=== PATIENT | female | born 1950 | race Caucasian/White ===

== ENCOUNTER 2016-10-12 00:43 | Emergency (ER) | payer MEDICARE ==
--- NOTE | 2016-10-12 01:03 | ERNOTE ---
Upper Extremity HPI - Narrative Date of Service: 10/12/16 - pt seen at 0100 - General Time Seen by Provider: 10/12/16 00:47 Source: patient Exam Limitations: no limitations - Immun/Allergies/Home Medications Immunizations: IMMUNIZATION HX Immunizations Up to Date Yes History of Influenza Vaccine Yes Hx Pneumococcal Vaccination No Allergies/Adverse Reactions: Allergies Allergy/AdvReac Type Severity Reaction Status Date / Time lithium [[place]] AdvReac Mild leg pain Verified 09/12/15 16:12 Home Medications: HOME MEDICATIONS Albuterol Sulfate [Albuterol Sulfate 2.5 MG/0.5ML] 1 vial IH Q6H 09/12/15 [Last Taken Unknown] Aspirin 325 mg PO DAILY 09/12/15 [Last Taken Unknown] Atenolol [Tenormin] 50 mg PO DAILY 09/12/15 [Last Taken Unknown] Furosemide [Lasix] 40 mg PO DAILY 09/12/15 [Last Taken Unknown] Gabapentin [Neurontin] 600 mg PO TID 09/12/15 [Last Taken Unknown] Glimepiride [Amaryl] 2 mg PO DAILY 09/12/15 [Last Taken Unknown] HYDROcodone/ACETAMINOPHEN [[place] 5-325] 1 tab PO Q4H PRN #30 tab 09/12/15 [Last Taken Unknown] Meloxicam [Mobic] 15 mg PO DAILY 09/12/15 [Last Taken Unknown] Multivitamin [One Daily Essential] 1 each PO DAILY 09/12/15 [Last Taken Unknown] Omeprazole [Prilosec] 20 mg PO DAILY 09/12/15 [Last Taken Unknown] Promethazine HCl [Phenergan] 25 mg PO QID PRN 09/12/15 [Last Taken Unknown] Venlafaxine HCl [Venlafaxine HCl ER] 150 mg PO DAILY 09/12/15 [Last Taken Unknown] Zolpidem Tartrate [Ambien] 15 mg PO HS PRN 09/12/15 [Last Taken Unknown] lamoTRIgine [Lamictal] 200 mg PO DAILY 09/12/15 [Last Taken Unknown] metFORMIN HCL [Glucophage] 1,000 mg PO BIDWM 09/12/15 [Last Taken Unknown] risperiDONE [Risperdal] 1 mg PO HS 09/12/15 [Last Taken Unknown] - History of Present Illness Narrative: Patient cut her left index finger on the side of her thin. This happened at home prior to presentation to the ER. There is a linear laceration on the pad of the distal portion of her left index finger. Review of Systems - Review of Systems Constitutional: Present: no symptoms reported EYE: Present: no symptoms reported ENT: Present: no symptoms reported Respiratory: Present: no symptoms reported Cardiology: Present: no symptoms reported Genitourinary: Present: no symptoms reported Musculoskeletal: Present: See HPI Skin: Present: no symptoms reported - Patient's Past Medical History Patient History - Medical: Diabetes Type 2, GERD, Hypothyroidism, Osteoarthritis Patient History - Cardiac/Respiratory: Asthma, CHF, Hypertension, Hyperlipidemia Patient History - Cancer: Skin Patient History - Surgical Procedures: Coronary Bypass Surgery, Total Hip Replacement, Tubal Ligation, Other Patient History - Other: None - Family History Mother Family History - Medical: Father Family History - Medical: - Social History Living Situations: home Abuse History: No History of abuse Psych History: No pertinent hx Smoking Status: Never smoker Patient requests Smoking Cessation Consult: No Initiate information on Smoking Cessation: No Alcohol Use: none Drug Use: none - Immunizations Immunizations Up to Date: Yes Hx Pneumococcal Vaccination: No History of Influenza Vaccine: Yes Physical Exam - Physical Exam General Appearance: Present: wd/wn, alert, no apparent distress Head Exam: Present: normal inspection, no evidence of injury Respiratory: Present: no respiratory distress, normal breath sounds, no accessory muscle use, chest nontender, lungs clear Cardiovascular/Chest: Present: regular rate, rhythm, no murmur, normal peripheral pulses Extremity Exam: Present: other - there is a 1.5 cm laceration on the left index finger on the pad/palmar surface of the digit distally. Bleeding has stopped but it is a nice size laceration and it is open ED Progress - Vital Signs Patient's Vital Signs:: I have reviewed the patient's vital signs. Vital Signs: Vital Signs 10/12/16 00:48 Temperature 36.5 C Pulse Rate 72 Respiratory 20 Rate Blood Pressure 170/94 O2 Sat by Pulse 96 Oximetry - Progress/Reassessment Chief Complaint: Upper Extremity Injury/Problem Departure Clinical Impression: Laceration of left index finger - Departure Disposition: Home self-care Condition: Good Instructions: Laceration Care, Adult, [id number] Additional Instructions: Please follow-up with your primary care doctor or here for a wound check in 48 hours. Subsequently please follow up in 7 days either here or with her primary care provider for suture removal. Referrals: Cassi Abraham DO [Primary Care Provider] -
[2016-10-12] MEDS ORDERED: LIDOCAINE HCL/EPINEPHRINE 30 ML VIAL IJ ONE (01:04)
[2016-10-12 02:18] VITALS: BP 128/87
== END 2016-10-12 01:43 | disposition home or self-care (01) ==
LOC: ER 00:43
DX: S61.211A Laceration without foreign body of left index finger without damage to nail, initial encounter (principal); W45.8XXA Other foreign body or object entering through skin, initial encounter; Y93.9 Activity, unspecified; Y92.009 Unspecified place in unspecified non-institutional (private) residence as the place of occurrence of the external cause

== ENCOUNTER 2016-10-13 23:54 | Emergency (ER) | payer MEDICARE ==
--- NOTE | 2016-10-14 00:12 | ERNOTE ---
Neuro HPI ER Record Time Seen by Provider: 10/14/16 00:02 Source: EMS Exam Limitations: clinical condition Immunizations: IMMUNIZATION HX Immunizations Up to Date Yes History of Influenza Vaccine Yes Hx Pneumococcal Vaccination No Allergies/Adverse Reactions: Allergies Allergy/AdvReac Type Severity Reaction Status Date / Time lithium [[place]] AdvReac Mild leg pain Verified 09/12/15 16:12 Home Medications: HOME MEDICATIONS Albuterol Sulfate [Albuterol Sulfate 2.5 MG/0.5ML] 1 vial IH Q6H 09/12/15 [Last Taken Unknown] Aspirin 325 mg PO DAILY 09/12/15 [Last Taken Unknown] Atenolol [Tenormin] 50 mg PO DAILY 09/12/15 [Last Taken Unknown] Furosemide [Lasix] 40 mg PO DAILY 09/12/15 [Last Taken Unknown] Gabapentin [Neurontin] 600 mg PO TID 09/12/15 [Last Taken Unknown] Glimepiride [Amaryl] 2 mg PO DAILY 09/12/15 [Last Taken Unknown] HYDROcodone/ACETAMINOPHEN [[place] 5-325] 1 tab PO Q4H PRN #30 tab 09/12/15 [Last Taken Unknown] Meloxicam [Mobic] 15 mg PO DAILY 09/12/15 [Last Taken Unknown] Multivitamin [One Daily Essential] 1 each PO DAILY 09/12/15 [Last Taken Unknown] Omeprazole [Prilosec] 20 mg PO DAILY 09/12/15 [Last Taken Unknown] Promethazine HCl [Phenergan] 25 mg PO QID PRN 09/12/15 [Last Taken Unknown] Venlafaxine HCl [Venlafaxine HCl ER] 150 mg PO DAILY 09/12/15 [Last Taken Unknown] Zolpidem Tartrate [Ambien] 15 mg PO HS PRN 09/12/15 [Last Taken Unknown] lamoTRIgine [Lamictal] 200 mg PO DAILY 09/12/15 [Last Taken Unknown] metFORMIN HCL [Glucophage] 1,000 mg PO BIDWM 09/12/15 [Last Taken Unknown] risperiDONE [Risperdal] 1 mg PO HS 09/12/15 [Last Taken Unknown] - History of Present Illness Narrative: History is very difficult on this patient as she is somnolent and she speaks with a slur. I am familiar with this patient as I sewed up the laceration on her left index finger last night. The history is that the patient was found down in her bathtub for an unknown amount of time. We have no information as to when the patient was seen last to the best of my guesstimate it last night when I saw the patient. Patient is a very poor historian. History per EMS is that she has altered level of consciousness and altered mentation and slurring of her speech. After head CT is done this examiner is able to locate the patient's spouse and the history per spouse is at the patient was last seen normal at 1999 as he saw her walk out the door with a normal gait. Shortly after that she was noticed to be at [employer] "falling all over the place". Spouse states "she may have taken some medication to sleep" patient was picked up from the store where she was falling by a friend and brought home and spouse put the patient to bed noticing that she was not walking right and that she was very unsteady on her feet. Subsequent to fat and prior to presentation to the ER patient gets up to go to the bathroom and falls fall was not noticed or witnessed by anyone and ambulance was called out to the patient' s residence and they brought the patient in. Review of Systems - Narrative Narrative: I am unable to get review of systems as patient is somnolent she slurs her speech and she appears confused when asked if she has any pain she states she does not have any pain anywhere. - Patient's Past Medical History Patient History - Medical: Diabetes Type 2, GERD, Hypothyroidism, Osteoarthritis Patient History - Cardiac/Respiratory: Asthma, CHF, Hypertension, Hyperlipidemia Patient History - Cancer: Skin Patient History - Surgical Procedures: Coronary Bypass Surgery, Total Hip Replacement, Tubal Ligation, Other Patient History - Other: None - Family History Mother Family History - Medical: Father Family History - Medical: - Social History Living Situations: home Abuse History: No History of abuse Psych History: No pertinent hx Smoking Status: Never smoker Alcohol Use: none Drug Use: none - Immunizations Immunizations Up to Date: Yes Hx Pneumococcal Vaccination: No History of Influenza Vaccine: Yes Physical Exam - Physical Exam General Appearance: Present: other - patient is somnolent and appears to be sleeping when I speak with her she opens her right eye left eye opens but less. She is able to slur her responses. She has left-sided facial droop. She is morbidly obese Eye Exam: Normal inspection: bilateral, PERRL: bilateral, EOMI: bilateral Ears, Nose, Throat: Present: normal ENT inspection Neck: Present: normal inspection Respiratory: Present: no respiratory distress, normal breath sounds, no accessory muscle use, chest nontender, lungs clear Cardiovascular/Chest: Present: regular rate, rhythm, no murmur, normal peripheral pulses Gastrointestinal/Abdominal: Present: normal bowel sounds, nontender, nondistended, soft, no organomegaly Extremity Exam: Present: normal inspection Neurological Exam: Present: other - patient is somnolent she has left-sided facial droop however when I speak to her she attempts to open her eyes her right eye opens up more than her left she is able to squeeze my hands bilaterally with both hands and she is able to plantar flex bilaterally with both feet she is awfully somnolent and when I stop talking to her she dozes off. Skin Exam: Present: normal color, warm/dry ED Progress - Results and Orders Patient's Lab Results:: I have reviewed the patient's lab results. - Vital Signs Patient's Vital Signs:: I have reviewed the patient's vital signs. Vital Signs: Vital Signs 10/13/16 23:56 Temperature 35.8 C L Pulse Rate 61 Respiratory 23 H Rate Blood Pressure 138/78 O2 Sat by Pulse 93 Oximetry - EKG EKG read: Interp. 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 At this patient was last seen normal at 8 PM the previous night just over 4 hours and 45 minutes ago she shouldn't does not meet criteria for TPA at this time. Furthermore [employer] has contacted me and informed me that the urine drug screen is negative. Dr. Suazo from [facility] has contacted me and informed me that patient does not have an acute intracranial bleed at this time. I consult to Dr. Ch [facility] stroke team and they accepted the patient to their emergency room for CVA. Patient's vitals remained stable and appropriate for transfer via ground to [facility] Departure Clinical Impression: Altered mental status, unspecified Qualifiers: Altered mental status type: unspecified Qualified Code(s): R41.82 - Altered mental status, unspecified Cerebral vascular accident Qualifiers: CVA mechanism: unspecified Qualified Code(s): I63.9 - Cerebral infarction, unspecified - Departure Disposition: [facility] Condition: Serious Referrals: Cassi Abraham DO [Primary Care Provider] -
[2016-10-14 00:19] LABS: Hematocrit 33.8 % (37.0-47.0); Hemoglobin 11.3 gm/dL (12.5-16.0); Mean Cell Volume 90.1 fl (78-100); Mean Corpuscular Hemoglobin 30.1 pg (27-31); Mean Corpuscular Hgb Conc 33.4 g/dl (32-36); Mean Platelet Volume 8.5 fl (6.0-9.5); Neutrophil # 5.9 K/mm3 (1.3-6.0); Neutrophil % 61.8 % (42-75.0); Platelet Count 248 K/mm3 (150-450); Red Blood Count 3.75 M/mm3 (4.2-5.4); Red Cell Distribution Width 14.2 % (11.5-14.0); White Blood Count 9.5 K/mm3 (4.0-10.5)
[2016-10-14 00:35] LABS: Urine Bilirubin Negative (NEGATIVE); Urine Blood Negative /ul (NEGATIVE); Urine Ketone Negative (NEGATIVE); Urine Nitrite Negative (NEGATIVE); Urine Protein Negative (NEGATIVE); Urine Specific Gravity <=1.005 SP.GR. (1.005-1.010); Urine Urobilinogen Normal (NORMAL)
[2016-10-14 00:37] LABS: Urine Amorphous Sediment TRACE (NONE-FEW); Urine Appearance Clear; Urine Bacteria None Seen; Urine Color Pale Yellow; Urine RBC None Seen /hpf (0-5); Urine WBC None Seen /hpf (0-5)
[2016-10-14 00:39] LABS: ALT 20 U/L (19-67); AST 10 U/L (0-48); Albumin * 3.2 gm/dl (3.4-5.0); Alkaline Phosphatase * 114 U/L (50-170); Anion Gap 13.1 mmol/L (6.8-13.8); BUN/Creatinine Ratio 20.4 (9.0-21.6); Bilirubin, Total 0.2 mg/dL (0.0-1.1); Blood Urea Nitrogen 32 mg/dL (3-23); CKMB 0.6 ng/mL (0.0-9.0); Ca. Corrected For Albumin 8.9 mg/dL (8.4-10.2); Calcium * 8.6 mg/dL (7.9-10.9); Carbon Dioxide 26.1 mmol/L (24-32.6); Chloride 98 mmol/L (97-106); Glucose * 324 mg/dL (70-110); Potassium 4.2 mmol/L (3.4-4.6); Sodium 133 mmol/L (132-142); Total Protein 6.5 gm/dL (6.2-8.2); Troponin I Less than 0.017 ng/ml (0.00-0.10)
[2016-10-14 00:41] LABS: Cocaine Ur Negative (NEGATIVE); Urine Barbiturate Negative (NEGATIVE); Urine Benzodiazepines Negative (NEGATIVE); Urine PCP Negative (NEGATIVE); Urine THC Negative (NEGATIVE)
[2016-10-14 00:50] LABS: Urine Opiates Negative (NEGATIVE)
[2016-10-14 02:07] VITALS: BP 166/97
== END 2016-10-14 02:07 | disposition short-term general hospital (02) ==
LOC: ER 23:54
DX: I63.9 Cerebral infarction, unspecified (principal); R41.82 Altered mental status, unspecified; Z85.828 Personal history of other malignant neoplasm of skin

== ENCOUNTER 2016-12-16 11:55 | Emergency (ER) | payer MEDICARE ==
--- NOTE | 2016-12-16 14:37 | ERNOTE ---
Lower Extremity HPI - Narrative Date of Service: 12/16/16 - General Lower Extremities Pain: leg: right - lower leg Time Seen by Provider: 12/16/16 14:32 Source: patient Exam Limitations: no limitations - Immun/Allergies/Home Medications Immunizations: IMMUNIZATION HX Immunizations Up to Date Yes History of Influenza Vaccine Yes Hx Pneumococcal Vaccination No Allergies/Adverse Reactions: Allergies Allergy/AdvReac Type Severity Reaction Status Date / Time lithium [[place]] AdvReac Mild leg pain Verified 12/16/16 12:01 Home Medications: HOME MEDICATIONS Albuterol Sulfate [Albuterol Sulfate 2.5 MG/0.5ML] 1 vial IH Q6H 09/12/15 [Last Taken Unknown] Aspirin 325 mg PO DAILY 09/12/15 [Last Taken Unknown] Atenolol [Tenormin] 50 mg PO DAILY 09/12/15 [Last Taken Unknown] Furosemide [Lasix] 40 mg PO DAILY 09/12/15 [Last Taken Unknown] Gabapentin [Neurontin] 600 mg PO TID 09/12/15 [Last Taken Unknown] Glimepiride [Amaryl] 2 mg PO DAILY 09/12/15 [Last Taken Unknown] HYDROcodone/ACETAMINOPHEN [[place] 5-325] 1 tab PO Q4H PRN #30 tab 09/12/15 [Last Taken Unknown] Meloxicam [Mobic] 15 mg PO DAILY 09/12/15 [Last Taken Unknown] Multivitamin [One Daily Essential] 1 each PO DAILY 09/12/15 [Last Taken Unknown] Omeprazole [Prilosec] 20 mg PO DAILY 09/12/15 [Last Taken Unknown] Promethazine HCl [Phenergan] 25 mg PO QID PRN 09/12/15 [Last Taken Unknown] Venlafaxine HCl [Venlafaxine HCl ER] 150 mg PO DAILY 09/12/15 [Last Taken Unknown] Zolpidem Tartrate [Ambien] 15 mg PO HS PRN 09/12/15 [Last Taken Unknown] lamoTRIgine [Lamictal] 200 mg PO DAILY 09/12/15 [Last Taken Unknown] metFORMIN HCL [Glucophage] 1,000 mg PO BIDWM 09/12/15 [Last Taken Unknown] risperiDONE [Risperdal] 1 mg PO HS 09/12/15 [Last Taken Unknown] - Pain Score Pain Score #1 Pain Score: 6 - History of Present Illness Narrative: 66yo, F, presents to ER for R. lower leg pain, which started today. She describes pain as an ache. Did improve for short period with rest, but pain increased again when she got out of bed. She denies any known injury to the leg. Notes she was lying down when pain first started. Date (Duration): 12/16/16 Time (Timing): 14:30 Location of Incident: home Method of Injury: Reports: no apparent injury Modifying Factors - (Improves): Reports: pain medication - ASA, rest Associated Symptoms: Denies: snapping, popping sensation, headache, weakness, sensory loss, chest pain, bowel/bladder problems Other Injuries: Reports: none Review of Systems - Review of Systems Constitutional: Absent: fever, chills, malaise Respiratory: Absent: shortness of breath, cough, orthopnea, wheezing Cardiology: Absent: chest pain, palpitations, edema Gastrointestinal/Abdominal: Absent: nausea, vomiting Musculoskeletal: Present: other - R. lower leg Skin: Absent: rash, other - redness Neurological: Absent: numbness, tingling - Patient's Past Medical History Patient History - Medical: Diabetes Type 2, GERD, Hypothyroidism, Osteoarthritis Patient History - Cardiac/Respiratory: Asthma, CHF, Hypertension, Hyperlipidemia Patient History - Cancer: Skin Patient History - Surgical Procedures: Coronary Bypass Surgery, Total Hip Replacement, Tubal Ligation, Other Patient History - Other: None - Family History Mother Family History - Medical: Father Family History - Medical: - Social History Living Situations: home Abuse History: No History of abuse Psych History: No pertinent hx - Immunizations Immunizations Up to Date: Yes Hx Pneumococcal Vaccination: No History of Influenza Vaccine: Yes Physical Exam - Physical Exam General Appearance: Present: wd/wn, alert, no apparent distress Respiratory: Present: no respiratory distress, normal breath sounds, lungs clear. Absent: crackles, rhonchi, wheezing Cardiovascular/Chest: Present: regular rate, rhythm, no murmur Extremity Exam: Present: normal inspection, normal range of motion - some discomfort to R. knee with ROM, no edema, calf tenderness - posterior and medial RLE, bony tenderness - tenderness along R. medial jointline . Absent: joint redness, joint swelling, extremity edema Neurological Exam: Present: alert, oriented ED Progress - Vital Signs Patient's Vital Signs:: I have reviewed the patient's vital signs. Vital Signs: Vital Signs 12/16/16 11:58 Temperature 36.0 C L Pulse Rate 62 Respiratory 12 Rate Blood Pressure 160/98 O2 Sat by Pulse 96 Oximetry - X-Ray X-Ray #1 X-Ray: knee Interpretation: Reviewed by me X-ray Comments: [facility] PATIENT RADIOLOGY STUDY REPORT Patient Patient Name:MARIETTA BOWLES Date: 07-21-1972 Sex: M Order Number: [id number] Unique Exam ID: [id number] Exam Requested: SHLDR-3-RT - Shoulder 3 of More Views RT * Date Scheduled: 12-16-2016 12:26 PM Study Priority: Requesting Service: Requesting Physician: Yessica Guerra Reason for Exam: shoulder pain Radiological Report : [facility] [id number] [address] NAME: MARIETTA BOWLES : 07/21/1972 MR #: [id number] CC: LOC: ER [facility] DATE: X-RAY REPORT [id number] RAD/Shoulder 3 of More Views RT * Exam Date: 12/16/2016 12:26 Ordering Physician: Yessica Guerra History: Right shoulder pain. History of previous shoulder surgery. Technique: 3 views of the right shoulder obtained. Comparison: 11/05/2016. Findings: Postoperative changes are stable. Alignment appears within normal limits. No fractures identified. IMPRESSION: NO ACUTE OSSEOUS PATHOLOGY IDENTIFIED. Electronically signed by Harsha Calderon M.D.. Harsha Calderon MD Dict: 12/16/16 1238 Typed: 12/16/16 1238/ 12/16/16 1239 12/16/16 1242 , Approved by: Harsha Calderon Approval Date: 12-16-2016 Approval Time: 12:38 PM THIS REPORT WAS RECEIVED FROM THE [employer] SYSTEM - CT/Ultrasound CT/Ultrasound Narrative: [facility] PATIENT RADIOLOGY STUDY REPORT Patient Patient Name:KAMI TRISTAN Date: 1950 Sex: F Order Number: [id number] Unique Exam ID: [id number] Exam Requested: VENOUS-RT - US Venous Ext Limited RT * Date Scheduled: 12-16-2016 02:42 PM Study Priority: Requesting Service: Requesting Physician: Gudelia Trotter Reason for Exam: RLE pain Radiological Report : [place] [id number] [address] [address] NAME: KAMI TRISTAN : 1950 MR #: [id number] CC: LOC: ER ADM DATE: X-RAY REPORT [id number] ULT/US Venous Ext Limited RT * Exam Date: 12/16/2016 14:42 Ordering Physician: Gudelia Trotter HISTORY: Medial right knee pain starting today RIGHT LOWER EXTREMITY DUPLEX VENOUS ULTRASOUND: Comparison: None Technique: Grayscale images of the right lower extremity veins were obtained. The veins were evaluated using color-flow and Doppler technique. Findings: The right common femoral, femoral, popliteal, proximal greater saphenous, proximal profunda, and visualized posterior tibial and peroneal veins are patent using color-flow and Doppler technique. The vessels are compressible and there is no evidence for intraluminal thrombus. IMPRESSION: 1. NORMAL ULTRASOUND OF THE RIGHT LOWER EXTREMITY DEEP VENOUS SYSTEM; NO EVIDENCE FOR DEEP VENOUS THROMBUS. Electronically signed by Kee De León M.D.. Kee De León MD Dict: 12/16/16 1521 Typed: 12/16/16 1521/ 12/16/16 1522 12/16/16 1525 , Approved by: Kee De León Approval Date: 12-16-2016 Approval Time: 03:21 PM THIS REPORT WAS RECEIVED FROM THE [employer] [facility] - Progress/Reassessment Chief Complaint: Lower Extremity Pain/ Injury Progress:: Improved Plan - Plan Plan: 12/16/16 15:40 US negative for DVT, does show effusion and degenerative changes on xray. Reviewed xray and US results with pt, along with dc instructions. Pt v/ u and will f/u with ortho if symptoms do not improve with conservative measures. Departure Clinical Impression: Knee effusion, right Right knee sprain Qualifiers: Encounter type: initial encounter Involved ligament of knee: unspecified ligament Qualified Code(s): S83.91XA - Sprain of unspecified site of right knee , initial encounter - Departure Disposition: Home self-care Condition: Good Instructions: Knee Effusion, [id number], Knee Pain, [id number] Additional Instructions: Rest, ice, narcisa wrap and elevate knee Take Ibuprofen as needed for pain Limit activities that cause pain If symptoms are not improving with conservative measures after 1 week, schedule follow up appt with orthopedics Referrals: Cassi Abraham DO [Primary Care Provider] - Baldev Hollingsworth MD [Staff Physician] -
[2016-12-16] MEDS ORDERED: HYDROcodone/ACETAMINOPHEN 1 EACH TABLET PO ONE (14:44)
[2016-12-16] MEDS ORDERED: HYDROcodone/ACETAMINOPHEN 1 EACH TABLET ONE (14:44)
[2016-12-16 14:48] VITALS: BP 171/78
== END 2016-12-16 15:45 | disposition home or self-care (01) ==
LOC: ER 11:55
DX: M25.461 Effusion, right knee (principal); S83.91XA Sprain of unspecified site of right knee, initial encounter; X58.XXXA Exposure to other specified factors, initial encounter; Y93.9 Activity, unspecified; Y92.9 Unspecified place or not applicable; Y99.9 Unspecified external cause status; C44.90 Unspecified malignant neoplasm of skin, unspecified; E11.9 Type 2 diabetes mellitus without complications; K21.9 Gastro-esophageal reflux disease without esophagitis

== ENCOUNTER 2016-12-23 15:51 | Emergency (ER) | payer MEDICARE ==
--- NOTE | 2016-12-23 16:25 | ERNOTE ---
Neuro HPI ER Record Presenting Symptoms: confusion Time Seen by Provider: 12/23/16 15:54 Source: patient, family Exam Limitations: no limitations Immunizations: IMMUNIZATION HX Immunizations Up to Date Yes History of Influenza Vaccine Yes Hx Pneumococcal Vaccination No Allergies/Adverse Reactions: Allergies Allergy/AdvReac Type Severity Reaction Status Date / Time lithium [[place]] AdvReac Mild leg pain Verified 12/16/16 12:01 Home Medications: HOME MEDICATIONS Albuterol Sulfate [Albuterol Sulfate 2.5 MG/0.5ML] 1 vial IH Q6H 09/12/15 [Last Taken Unknown] Aspirin 325 mg PO DAILY 09/12/15 [Last Taken Unknown] Atenolol [Tenormin] 50 mg PO DAILY 09/12/15 [Last Taken Unknown] Furosemide [Lasix] 40 mg PO DAILY 09/12/15 [Last Taken Unknown] Gabapentin [Neurontin] 600 mg PO TID 09/12/15 [Last Taken Unknown] Glimepiride [Amaryl] 2 mg PO DAILY 09/12/15 [Last Taken Unknown] HYDROcodone/ACETAMINOPHEN [[place] 5-325] 1 tab PO Q4H PRN #30 tab 09/12/15 [Last Taken Unknown] Meloxicam [Mobic] 15 mg PO DAILY 09/12/15 [Last Taken Unknown] Multivitamin [One Daily Essential] 1 each PO DAILY 09/12/15 [Last Taken Unknown] Omeprazole [Prilosec] 20 mg PO DAILY 09/12/15 [Last Taken Unknown] Promethazine HCl [Phenergan] 25 mg PO QID PRN 09/12/15 [Last Taken Unknown] Venlafaxine HCl [Venlafaxine HCl ER] 150 mg PO DAILY 09/12/15 [Last Taken Unknown] Zolpidem Tartrate [Ambien] 15 mg PO HS PRN 09/12/15 [Last Taken Unknown] lamoTRIgine [Lamictal] 200 mg PO DAILY 09/12/15 [Last Taken Unknown] metFORMIN HCL [Glucophage] 1,000 mg PO BIDWM 09/12/15 [Last Taken Unknown] risperiDONE [Risperdal] 1 mg PO HS 09/12/15 [Last Taken Unknown] - History of Present Illness Narrative: Patient is send over from the clinic for chest pain. She states that she has had intermittent chest pain for a long time. It starts at her right shoulder and radiates around to her shoulder and arm pit lasting a few minutes, currently gone. Patient seems very sleepy. Per she has switched her sleep schedule for years, stays up all night and sometimes does not go to bed till he leaves for work in the morning and then sleeps all day and is very tired. She seems to be confused and has a slurred speech at times which has been going on for weeks, mentioned a wrong date for when they got . Onset: gradual onset Context: other - no recent - Character of Deficits Additional Deficits: Present: impaired speech. Absent: vision problems Baseline Cognition: Present: alert but disoriented to time Baseline Gait: Present: walks w/o assistance Associated Symptoms: Reports: chest pain, neck/back pain, confused. Denies: fever/chills, headache Prior Treament: Reports: recently seen, similar symptoms before Review of Systems - Review of Systems Constitutional: Absent: recent illness, fever EYE: Absent: double vision, vision changes ENT: Absent: sore throat Respiratory: Absent: shortness of breath, cough Cardiology: Present: See HPI, chest pain. Absent: palpitations Gastrointestinal/Abdominal: Absent: nausea, vomiting, abdominal pain Genitourinary: Present: no symptoms reported Musculoskeletal: Absent: back pain, neck pain Skin: Absent: rash Neurological: Absent: headache - Patient's Past Medical History Patient History - Medical: Diabetes Type 2, GERD, Hypothyroidism, Osteoarthritis Patient History - Cardiac/Respiratory: Asthma, CHF, Hypertension, Hyperlipidemia Patient History - Cancer: Skin Patient History - Surgical Procedures: Coronary Bypass Surgery, Total Hip Replacement, Tubal Ligation, Other Patient History - Other: None - Family History Mother Family History - Medical: Father Family History - Medical: - Social History Living Situations: spouse Abuse History: No History of abuse Psych History: No pertinent hx - Immunizations Immunizations Up to Date: Yes Hx Pneumococcal Vaccination: No History of Influenza Vaccine: Yes Physical Exam - Physical Exam General Appearance: Present: wd/wn, no apparent distress, sleeping/easy to arouse Head Exam: Present: normal inspection, no evidence of injury Eye Exam: Normal inspection: bilateral - prominent eyes, PERRL: bilateral, EOMI : bilateral Ears, Nose, Throat: Present: normal ENT inspection, normal pharynx Neck: Present: normal inspection, nontender, supple, full range of motion Respiratory: Present: no respiratory distress, normal breath sounds, no accessory muscle use, lungs clear Cardiovascular/Chest: Present: regular rate, rhythm, no murmur Gastrointestinal/Abdominal: Present: normal bowel sounds, nontender, nondistended, soft Extremity Exam: Present: normal inspection, normal except - - muscle knot in right posterior shoulder, palpation elicits pain (reproduces chest/shoulder pain ), no edema Neurological Exam: Present: disoriented to time - thinks it is 01/17/2013, other - sleeping easily arousable Skin Exam: Present: normal color, warm/dry [place] Coma Scale - Assess Eye Opening: To Voice Motor: Obeys Commands Verbal: Confused - Total Coma Scale Total: 13 ED Progress - Results and Orders Patient's Lab Results:: I have reviewed the patient's lab results. - Vital Signs Patient's Vital Signs:: I have reviewed the patient's vital signs. Vital Signs: Vital Signs 12/23/16 15:58 Temperature 36.7 C Pulse Rate 65 Respiratory 23 H Rate Blood Pressure 177/89 O2 Sat by Pulse 97 Oximetry - EKG EKG: NSR, nonspecific ST T wave changes EKG read: Interp. by me - CT/Ultrasound CT/Ultrasound Narrative: CT head: no acute findings - Progress/Reassessment Chief Complaint: Chest Pain Progress Note-Subjective: 12/23/16 17:47 discussed results with patient, , and daughter, patient resting but easily aroused Departure Clinical Impression: Musculoskeletal pain Altered mental status, unspecified Qualifiers: Altered mental status type: unspecified Qualified Code(s): R41.82 - Altered mental status, unspecified - Departure Disposition: Home self-care Condition: Stable Instructions: Confusion Additional Instructions: call your doctor for follow Referrals: Cassi Abraham DO [Primary Care Provider] -
[2016-12-23 16:30] LABS: Hematocrit 35.7 % (37.0-47.0); Hemoglobin 12.1 gm/dL (12.5-16.0); Mean Cell Volume 91.8 fl (78-100); Mean Corpuscular Hemoglobin 31.1 pg (27-31); Mean Corpuscular Hgb Conc 33.9 g/dl (32-36); Mean Platelet Volume 8.4 fl (6.0-9.5); Neutrophil % 70.3 % (42-75.0); Platelet Count 214 K/mm3 (150-450); Red Blood Count 3.89 M/mm3 (4.2-5.4); Red Cell Distribution Width 14.3 % (11.5-14.0); White Blood Count 8.5 K/mm3 (4.0-10.5)
[2016-12-23 16:48] LABS: Urine Bilirubin Negative (NEGATIVE); Urine Blood 25 /ul (NEGATIVE); Urine Ketone Negative (NEGATIVE); Urine Nitrite Negative (NEGATIVE); Urine Protein Negative (NEGATIVE); Urine Urobilinogen Normal (NORMAL)
[2016-12-23 16:51] LABS: ALT 15 U/L (19-67); AST 10 U/L (0-48); Acetaminophen * 9.2 mcg/mL (10.0-30.0); Albumin * 3.3 gm/dl (3.4-5.0); Alkaline Phosphatase * 114 U/L (50-170); Anion Gap 12.6 mmol/L (6.8-13.8); BUN/Creatinine Ratio 19.7 (9.0-21.6); Bilirubin, Total 0.2 mg/dL (0.0-1.1); Blood Urea Nitrogen 25 mg/dL (3-23); Ca. Corrected For Albumin 8.8 mg/dL (8.4-10.2); Calcium * 8.6 mg/dL (7.9-10.9); Carbon Dioxide 25.5 mmol/L (24-32.6); Chloride 103 mmol/L (97-106); Glucose * 211 mg/dL (70-110); Potassium 4.1 mmol/L (3.4-4.6); Salicylate 14.2 mg/dL (2.8-20.0); Sodium 137 mmol/L (132-142); TSH * 4.312 uIU/mL (0.358-3.74); Total Protein 6.6 gm/dL (6.2-8.2); Troponin I Less than 0.017 ng/ml (0.00-0.10)
[2016-12-23 17:02] LABS: Urine Appearance Clear; Urine Color Yellow; Urine RBC 0-5 /hpf (0-5); Urine WBC None Seen /hpf (0-5)
[2016-12-23 17:03] LABS: Urine Bacteria TRACE
[2016-12-23 17:59] VITALS: BP 164/95
[2016-12-23 19:59] LABS: Cocaine Ur Negative (NEGATIVE); Urine Barbiturate Negative (NEGATIVE); Urine Benzodiazepines Negative (NEGATIVE); Urine Opiates Negative (NEGATIVE); Urine PCP Negative (NEGATIVE); Urine THC Negative (NEGATIVE)
== END 2016-12-23 18:00 | disposition home or self-care (01) ==
LOC: ER 15:51
DX: R41.82 Altered mental status, unspecified (principal); M79.1 Myalgia; Z85.828 Personal history of other malignant neoplasm of skin
CPT/HCPCS: 36415; 70450; 80053; 80307; 81001; 84439; 84443; 84484; 85025; 87086; 93005; 94762; 99284; G0480; G0481

== ENCOUNTER 2017-02-23 07:48 | Observation (INO) | payer MEDICARE ==
[2017-02-23 08:33] LABS: Hematocrit 38.7 % (37.0-47.0); Mean Cell Volume 89.8 fl (78-100); Mean Corpuscular Hemoglobin 30.2 pg (27-31); Mean Corpuscular Hgb Conc 33.6 g/dl (32-36); Mean Platelet Volume 8.3 fl (6.0-9.5); Neutrophil # 4.5 K/mm3 (1.3-6.0); Neutrophil % 63.6 % (42-75.0); Platelet Count 237 K/mm3 (150-450); Red Blood Count 4.31 M/mm3 (4.2-5.4); Red Cell Distribution Width 13.6 % (11.5-14.0); White Blood Count 7.1 K/mm3 (4.0-10.5)
--- NOTE | 2017-02-23 08:40 | ERNOTE ---
ENT HPI Presenting Symptoms: other - fall secondary to a seizure? Time Seen by Provider: 02/23/17 08:10 Source: patient, EMS Exam Limitations: other - likely postictal - Immun/Allergies/Home Medications Immunizations: IMMUNIZATION HX Immunizations Up to Date Yes History of Influenza Vaccine Yes Hx Pneumococcal Vaccination No Allergies/Adverse Reactions: Allergies Allergy/AdvReac Type Severity Reaction Status Date / Time lithium [[place]] AdvReac Mild leg pain Verified 12/16/16 12:01 Home Medications: HOME MEDICATIONS Albuterol Sulfate [Albuterol Sulfate 2.5 MG/0.5ML] 1 vial IH Q6H 09/12/15 [Last Taken Unknown] Aspirin 325 mg PO DAILY 09/12/15 [Last Taken Unknown] Atenolol [Tenormin] 50 mg PO DAILY 09/12/15 [Last Taken Unknown] Furosemide [Lasix] 40 mg PO DAILY 09/12/15 [Last Taken Unknown] Gabapentin [Neurontin] 600 mg PO TID 09/12/15 [Last Taken Unknown] Glimepiride [Amaryl] 2 mg PO DAILY 09/12/15 [Last Taken Unknown] HYDROcodone/ACETAMINOPHEN [[place] 5-325] 1 tab PO Q4H PRN #30 tab 09/12/15 [Last Taken Unknown] Meloxicam [Mobic] 15 mg PO DAILY 09/12/15 [Last Taken Unknown] Multivitamin [One Daily Essential] 1 each PO DAILY 09/12/15 [Last Taken Unknown] Omeprazole [Prilosec] 20 mg PO DAILY 09/12/15 [Last Taken Unknown] Promethazine HCl [Phenergan] 25 mg PO QID PRN 09/12/15 [Last Taken Unknown] Venlafaxine HCl [Venlafaxine HCl ER] 150 mg PO DAILY 09/12/15 [Last Taken Unknown] Zolpidem Tartrate [Ambien] 15 mg PO HS PRN 09/12/15 [Last Taken Unknown] lamoTRIgine [Lamictal] 200 mg PO DAILY 09/12/15 [Last Taken Unknown] Atorvastatin Calcium [Lipitor] 40 mg PO HS 02/23/17 [Last Taken Unknown] Cyclobenzaprine HCl 10 mg PO 02/23/17 [Last Taken Unknown] Fenofibrate 160 mg PO 02/23/17 [Last Taken Unknown] Hydroxyzine HCl 25 mg PO DAILY 02/23/17 [Last Taken Unknown] Levothyroxine Sodium [Levoxyl] 75 mcg PO 02/23/17 [Last Taken Unknown] - History of Present Illness Narrative: Patient got up to go to the bathroom and she states she tripped and struck her face. She became incontinent and had a period of confusion after the fall. She states she's done this before and while I do not see any diagnosis of seizure disorder I'm suspecting an underlying seizure disorder possibly secondary to alcohol and/or drugs. ENT Location: Present: nose, facial - injury Prearrival Treatment: Present: no prearrival treatment Modifying Factors - Improves: Reports: nothing Modifying Factors - Worsens: Reports: nothing Associated Symptoms - ENT: Reports: denies symptoms Review of Systems - Review of Systems Constitutional: Present: See HPI EYE: Present: no symptoms reported ENT: Present: nose pain, other - patient has a contusion on her forehead from the fall Respiratory: Present: no symptoms reported Cardiology: Present: no symptoms reported Gastrointestinal/Abdominal: Present: no symptoms reported Genitourinary: Present: no symptoms reported Musculoskeletal: Present: no symptoms reported Skin: Present: no symptoms reported Neurological: Present: no symptoms reported Endocrine: Present: no symptoms reported Hematologic/Lymphatic: Present: no symptoms reported Psych: Present: no symptoms reported - Patient's Past Medical History Patient History - Medical: Diabetes Type 2, GERD, Hypothyroidism, Obesity, Osteoarthritis Patient History - Cardiac/Respiratory: Asthma, CHF, COPD, Hypertension, Hyperlipidemia Patient History - Cancer: Skin Patient History - Surgical Procedures: Coronary Bypass Surgery, Total Hip Replacement, Tubal Ligation, Other Patient History - Other: None - Family History Mother Family History - Medical: Father Family History - Medical: - Social History Living Situations: home Abuse History: No History of abuse Psych History: No pertinent hx - Immunizations Immunizations Up to Date: Yes Hx Pneumococcal Vaccination: No History of Influenza Vaccine: Yes Physical Exam - Physical Exam General Appearance: Present: wd/wn, mild distress, other - sleepy and appears to be postictal Head Exam: Present: tenderness - on the bridge of the nose and on the forehead with swelling Eye Exam: Normal inspection: bilateral, PERRL: bilateral Ears, Nose, Throat: Present: normal ENT inspection, H, normal pharynx Neck: Present: normal inspection, nontender Respiratory: Present: no respiratory distress, normal breath sounds, no accessory muscle use, chest nontender, lungs clear Cardiovascular/Chest: Present: regular rate, rhythm, no murmur, normal peripheral pulses Gastrointestinal/Abdominal: Present: normal bowel sounds, nontender, nondistended, soft, no organomegaly Rectal Exam: Present: deferred Back Exam: Present: normal inspection, normal range of motion Extremity Exam: Present: normal inspection, non-tender, no edema, normal range of motion Neurological Exam: Present: alert, oriented, normal mood/affect, other - patient appears to be postictal Skin Exam: Present: normal color, warm/dry Lymphatic Exam: Present: no adenopathy ED Progress - Results and Orders Patient's Lab Results:: I have reviewed the patient's lab results. - Vital Signs Patient's Vital Signs:: I have reviewed the patient's vital signs. Vital Signs: Vital Signs 02/23/17 02/23/17 07:53 08:17 Temperature 36.5 C Pulse Rate 92 88 Respiratory 26 H 24 H Rate Blood Pressure 146/91 154/97 O2 Sat by Pulse 95 94 Oximetry - EKG EKG: NSR - CT/Ultrasound CT/Ultrasound Narrative: CT the head, neck and maxillofacial area reviewed by me - Progress/Reassessment Chief Complaint: Facial Injury Plan - Plan Plan: I'm unclear exactly what is happening here as the patient appears to be postictal, however she is also hyperglycemic and possibly over self medicated. Patient will benefit from being brought in the hospital for correction of her hyperglycemia, EEG and restricting all of her medications to see how she does over the next 24 hours. Departure Clinical Impression: Syncope and collapse, Hyperglycemia - Departure Disposition: [facility] Condition: Fair
[2017-02-23 08:47] LABS: Albumin * 3.2 gm/dl (3.4-5.0); Anion Gap 11.5 mmol/L (6.8-13.8); BUN/Creatinine Ratio 16.5 (9.0-21.6); Bilirubin, Total 0.2 mg/dL (0.0-1.1); Ca. Corrected For Albumin 8.9 mg/dL (8.4-10.2); Calcium * 8.6 mg/dL (7.9-10.9); Carbon Dioxide 29.8 mmol/L (24-32.6); Potassium 4.3 mmol/L (3.4-4.6); Total Protein 6.8 gm/dL (6.2-8.2)
[2017-02-23 09:29] LABS: Magnesium 1.8 mg/dL (1.2-2.8)
[2017-02-23 09:30] LABS: Urine Bilirubin Negative (NEGATIVE); Urine Blood 25 /ul (NEGATIVE); Urine Ketone Negative (NEGATIVE); Urine Nitrite Negative (NEGATIVE); Urine Protein Negative (NEGATIVE); Urine Urobilinogen Normal (NORMAL); Urine pH 6.5 pH (5.0-7.0)
[2017-02-23 09:37] LABS: Urine Appearance Clear; Urine Bacteria None Seen; Urine Color Pale Yellow; Urine RBC 0-5 /hpf (0-5); Urine WBC None Seen /hpf (0-5)
[2017-02-23 12:36] LABS: T4 Free * 0.61 ng/dL (0.76-1.46); TSH * 4.547 uIU/mL (0.358-3.74)
[2017-02-23 12:39] LABS: Cocaine Ur Negative (NEGATIVE); Urine Barbiturate Negative (NEGATIVE); Urine Benzodiazepines Negative (NEGATIVE); Urine Opiates Negative (NEGATIVE); Urine PCP Negative (NEGATIVE); Urine THC Negative (NEGATIVE)
--- NOTE | 2017-02-23 17:31 | HP ---
Chief Complaint - Chief Complaint Date of Service: 02/23/17 Time of Service: 13:00 Chief Complaint: Fall History of Present Illness: Unfortunately, at the time of my exam there was no family or any witnesses to talk to and the patient was very lethargic and altered and unable to provide me with any information. According to the ED record, the "patient got up to go to the bathroom and tripped and struck her face. She became incontinent and had a period of confusion after the fall. She states she's done this before." - Patient's Past Medical History Patient History - Medical: Bipolar, Diabetes Type 2, Depression, GERD, Hypothyroidism, Obesity, Osteoarthritis Patient History - Cardiac/Respiratory: Asthma, CHF, COPD, Hypertension, Hyperlipidemia Patient History - Cancer: Skin Patient History - Surgical Procedures: Back Surgery, Colonoscopy, Coronary Bypass Surgery, Total Hip Replacement, Tubal Ligation, T & A, Other Patient History - Other: None - Family History Mother Family History - Medical: , Diabetes Type 2 Family History - Cardiac/Respiratory: CHF Family History - Cancer: Colon Father Family History - Medical: - Social History Living Situations: spouse Abuse History: No History of abuse Psych History: Hx of Depression, Hx of Bipolar Disorder, Hx of Suicide Attempt Smoking Status: Never smoker Have you smoked in the past 12 months: No Alcohol Use: none - Immunizations Immunizations Up to Date: Yes Hx Pneumococcal Vaccination: No History of Influenza Vaccine: Yes Review Of Systems (GEN) - Review of Systems Additional Comments: Unable to obtain secondary to the patient's clinical condition Immunizations: IMMUNIZATION HX Immunizations Up to Date Yes History of Influenza Vaccine Yes Hx Pneumococcal Vaccination No Allergies/Adverse Reactions: Allergies Allergy/AdvReac Type Severity Reaction Status Date / Time lithium [[place]] AdvReac Mild leg pain Verified 12/16/16 12:01 Home Medications: HOME MEDICATIONS Albuterol Sulfate [Albuterol Sulfate 2.5 MG/0.5ML] 1 vial IH Q6H 09/12/15 [Last Taken Unknown] Aspirin 325 mg PO DAILY 09/12/15 [Last Taken Unknown] Atenolol [Tenormin] 50 mg PO DAILY 09/12/15 [Last Taken Unknown] Furosemide [Lasix] 40 mg PO DAILY 09/12/15 [Last Taken Unknown] Gabapentin [Neurontin] 600 mg PO TID 09/12/15 [Last Taken Unknown] Meloxicam [Mobic] 15 mg PO DAILY 09/12/15 [Last Taken Unknown] Multivitamin [One Daily Essential] 1 each PO DAILY 09/12/15 [Last Taken Unknown] Omeprazole [Prilosec] 20 mg PO BID 09/12/15 [Last Taken Unknown] Promethazine HCl [Phenergan] 25 mg PO QID PRN 09/12/15 [Last Taken Unknown] Venlafaxine HCl [Venlafaxine HCl ER] 150 mg PO DAILY 09/12/15 [Last Taken Unknown] Zolpidem Tartrate [Ambien] 15 mg PO HS PRN 09/12/15 [Last Taken 02/23/17 02:30] lamoTRIgine [Lamictal] 200 mg PO DAILY 09/12/15 [Last Taken Unknown] Albuterol Sulfate [Albuterol Sulfate 2.5 MG/3 ML] 2.5 mg IH Q6H PRN 02/23/17 [ Last Taken Unknown] Aspirin [Aspirin Enteric Coated] 81 mg PO DAILY 02/23/17 [Last Taken Unknown] Aspirin/Acetaminophen/Caffeine [Excedrin Migraine Caplet] 1 each PO DAILY PRN [Last Taken Unknown] Atenolol [Tenormin] 50 mg PO DAILY 02/23/17 [Last Taken Unknown] Atorvastatin Calcium [Lipitor] 40 mg PO HS 02/23/17 [Last Taken Unknown] Cyclobenzaprine HCl 10 mg PO TID PRN 02/23/17 [Last Taken Unknown] Fenofibrate 160 mg PO DAILY 02/23/17 [Last Taken Unknown] Ferrous Sulfate [Iron] 325 mg PO DAILY 02/23/17 [Last Taken Unknown] Furosemide [Lasix] 40 mg PO DAILY 02/23/17 [Last Taken Unknown] Gabapentin 600 mg PO TID 02/23/17 [Last Taken Unknown] Hydroxyzine HCl 25 mg PO QID 02/23/17 [Last Taken Unknown] LORazepam [Ativan] 0.5 mg PO TID PRN 02/23/17 [Last Taken Unknown] LORazepam [Ativan] 1 mg PO TID PRN 02/23/17 [Last Taken Unknown] Levothyroxine Sodium [Levoxyl] 75 mcg PO DAILY 02/23/17 [Last Taken Unknown] Nitroglycerin 0.4 mg SL PRN PRN 02/23/17 [Last Taken Unknown] Potassium Gluconate [Potassium] 99 mg PO DAILY 02/23/17 [Last Taken Unknown] glipiZIDE [Glipizide] 5 mg PO BIDAC 02/23/17 [Last Taken Unknown] traZODone HCL [Trazodone HCl] 150 mg PO HS 02/23/17 [Last Taken Unknown] Exam - Exam Vital Signs: Vital Signs - Last Taken Temp 36.7 C 02/23/17 14:50 Pulse 65 02/23/17 14:50 Resp 18 02/23/17 14:50 BP 138/76 02/23/17 14:50 Pulse Ox 96 02/23/17 14:50 Constitutional: Present: Lethargic, Morbidly obese, Looks Older than stated age ENT Exam: Present: other - Edema surrounding bridge of nose area with ecchymosis medial corners of eyes bilaterally Eye Exam: bilateral eye: PERRL Respiratory: Present: no respiratory distress, no accessory muscle use, decreased breath sounds Cardiovascular/Chest: Present: regular rate, rhythm Abdomen: Present: soft, nontender, nondistended, obese Skin Exam: Present: warm/dry Appearance: Present: disheveled Diagnostic Studies: Laboratory Results WBC 7.1 K/mm3 (4.0-10.5) 02/23/17 08:25 RBC 4.31 M/mm3 (4.2-5.4) 02/23/17 08:25 Hgb 13.0 gm/dL (12.5-16.0) 02/23/17 08:25 Hct 38.7 % (37.0-47.0) 02/23/17 08:25 MCV 89.8 fl (78-100) 02/23/17 08:25 MCH 30.2 pg (27-31) 02/23/17 08:25 MCHC 33.6 g/dl (32-36) 02/23/17 08:25 RDW 13.6 % (11.5-14.0) 02/23/17 08:25 Plt Count 237 K/mm3 (150-450) 02/23/17 08:25 MPV 8.3 fl (6.0-9.5) 02/23/17 08:25 Immature Gran % (Auto) 0.30 % (0.001-0.429) 02/23/17 08:25 Immature Gran # (Auto) 0.02 K/mm3 (0.000-0.0310) 02/23/17 08:25 Neutrophils % 63.6 % (42-75.0) 02/23/17 08:25 Lymphocytes % 23.4 % (20-51) 02/23/17 08:25 Monocytes % 8.2 % (0.0-9) 02/23/17 08:25 Eosinophils % 3.5 % (0.0-3.0) H 02/23/17 08:25 Basophils % 1.0 % (0.0-1.0) 02/23/17 08:25 Nucleated RBC % 0.0 k/mm3 (0-1) 02/23/17 08:25 Neutrophils # 4.5 K/mm3 (1.3-6.0) 02/23/17 08:25 Lymphocytes # 1.7 k/mm3 (1.5-3.5) 02/23/17 08:25 Monocytes # 0.6 k/mm3 (0.0-1.0) 02/23/17 08:25 Eosinophils # 0.3 k/mm3 (0.0-0.7) 02/23/17 08:25 Absolute Basophils 0.1 k/mm3 (0.0-0.1) 02/23/17 08:25 Sodium 136 mmol/L (132-142) 02/23/17 08:25 Plasma Sodium 141 mmol/L (130-142) 02/23/17 08:25 Potassium 4.3 mmol/L (3.4-4.6) 02/23/17 08:25 Chloride 99 mmol/L (97-106) 02/23/17 08:25 Carbon Dioxide 29.8 mmol/L (24-32.6) 02/23/17 08:25 Anion Gap 11.5 mmol/L (6.8-13.8) 02/23/17 08:25 BUN 22 mg/dL (3-23) 02/23/17 08:25 Creatinine 1.33 mg/dL (0.4-1.4) 02/23/17 08:25 Est GFR (Non-Af Amer) 42 mL/min (60-130) L 02/23/17 08:25 BUN/Creatinine Ratio 16.5 (9.0-21.6) 02/23/17 08:25 Random Glucose 409 mg/dL (70-110) H 02/23/17 08:25 Calcium 8.6 mg/dL (7.9-10.9) 02/23/17 08:25 Calcium Adj for Albumin 8.9 mg/dL (8.4-10.2) 02/23/17 08:25 Magnesium 1.8 mg/dL (1.2-2.8) 02/23/17 08:25 Total Bilirubin 0.2 mg/dL (0.0-1.1) 02/23/17 08:25 AST 11 U/L (0-48) 02/23/17 08:25 ALT 13 U/L (19-67) L 02/23/17 08:25 Alkaline Phosphatase 146 U/L (50-170) 02/23/17 08:25 Total Protein 6.8 gm/dL (6.2-8.2) 02/23/17 08:25 Albumin 3.2 gm/dl (3.4-5.0) L 02/23/17 08:25 TSH 4.547 uIU/mL (0.358-3.74) H 02/23/17 08:25 Free T4 0.61 ng/dL (0.76-1.46) L 02/23/17 08:25 Urine Color Pale yellow 02/23/17 09:10 Urine Appearance Clear 02/23/17 09:10 Urine pH 6.5 pH (5.0-7.0) 02/23/17 09:10 Ur Specific [place] 1.010 SP.GR. (1.005-1.010) 02/23/17 09:10 Urine Protein Negative mg/dL (NEGATIVE) 02/23/17 09:10 Urine Glucose (UA) 250 mg/dL (NEGATIVE) H 02/23/17 09:10 Urine Ketones Negative mg/dL (NEGATIVE) 02/23/17 09:10 Urine Blood 25 /ul (NEGATIVE) H 02/23/17 09:10 Urine Nitrate Negative (NEGATIVE) 02/23/17 09:10 Urine Bilirubin Negative mg/dl (NEGATIVE) 02/23/17 09:10 Urine Urobilinogen Normal EU/dl (NORMAL) 02/23/17 09:10 Ur Leukocyte Esterase Negative /ul (NEGATIVE) 02/23/17 09:10 Urine RBC 0-5 /hpf (0-5) 02/23/17 09:10 Urine WBC None seen /hpf (0-5) 02/23/17 09:10 Ur Epithelial Cells 0-5 /hpf (0-5) 02/23/17 09:10 Urine Bacteria None seen (NONE) 02/23/17 09:10 Urine Culture Comments Culture to follow 02/23/17 09:10 Urine Opiates Screen Negative (NEGATIVE) 02/23/17 09:10 Barbiturate Screen Negative (NEGATIVE) 02/23/17 09:10 Ur Phencyclidine Scrn Negative (NEGATIVE) 02/23/17 09:10 Urine Amphetamine Negative (NEGATIVE) 02/23/17 09:10 U Benzodiazepines Scrn Negative (NEGATIVE) 02/23/17 09:10 Urine Cocaine Screen Negative (NEGATIVE) 02/23/17 09:10 Urine Marijuana (THC) Negative (NEGATIVE) 02/23/17 09:10 Ethyl Alcohol Less than 3.0 mg/dL (0.0-10.0) 02/23/17 08:25 Serum Ketones Negative (NEGATIVE) 02/23/17 08:25 Assessment/Plan - Narrative Narrative: Although I am unable to obtain any additional history and my exam is limited secondary to the patient not following commands, I am concerned for a possible seizure as the the etiology for the patient's presentation. We will obtain an EEG in the AM. Seizure precautions in place. All lab work is essentially unremarkable except her thyroid labs and her elevated BG. Increase home levothyroxine dose to 88mcg daily. Ice and pain control as needed for non- displaced nasal bone fracture. - Assessment/Plan (1) Toxic metabolic encephalopathy Problem: Acute (2) Seizure disorder Problem: Suspected (3) Hyperglycemia Problem: Acute (4) Syncope and collapse Problem: Suspected (5) Contusion of face Problem: Acute Qualifiers: Encounter type: initial encounter Qualified Code(s): S00.83XA - Contusion of other part of head, initial encounter (6) Type 2 diabetes mellitus Problem: Chronic (7) Closed fracture nasal bone Problem: Acute Qualifiers: Encounter type: initial encounter Qualified Code(s): S02.2XXA - Fracture of nasal bones, initial encounter for closed fracture
[2017-02-23] MEDS ORDERED: ACETAMINOPHEN 325 MG TABLET PO PRN (17:52)
[2017-02-23] MEDS ORDERED: ALBUTEROL SULFATE 2.5 MG/3 ML VIAL.NEB IH PRN (18:21)
[2017-02-23] MEDS ORDERED: ATORVASTATIN CALCIUM 40 MG TABLET PO SCH (21:00)
[2017-02-23] MEDS: INSULIN LISPRO 100 UNITS/ML VIAL SC SCH (21:23)
[2017-02-24] MEDS ORDERED: INSULIN LISPRO 100 UNITS/ML VIAL SC SCH (07:00)
[2017-02-24] MEDS ORDERED: LEVOTHYROXINE SODIUM 88 MCG TABLET PO SCH (07:00)
[2017-02-24] MEDS ORDERED: glipiZIDE 5 MG TABLET PO SCH (07:00)
[2017-02-24] MEDS ORDERED: PANTOPRAZOLE SODIUM 20 MG TABLET.DR PO SCH (07:00)
[2017-02-24] MEDS: INSULIN LISPRO 100 UNITS/ML VIAL SC SCH ×2 (07:21→12:20)
[2017-02-24] MEDS ORDERED: FENOFIBRATE,MICRONIZED 134 MG CAPSULE PO SCH (09:00)
[2017-02-24] MEDS ORDERED: MULTIVITAMINS 1 CAP CAPSULE PO SCH (09:00)
[2017-02-24] MEDS ORDERED: ASPIRIN 325 MG TABLET.DR PO SCH (09:00)
[2017-02-24] MEDS ORDERED: FERROUS SULFATE 325 MG TABLET PO SCH (09:00)
[2017-02-24] MEDS ORDERED: lamoTRIgine 100 MG TABLET PO SCH (09:00)
[2017-02-24] MEDS ORDERED: VENLAFAXINE HCL 150 MG CAP.SR.24H PO SCH (09:00)
[2017-02-24] MEDS ORDERED: FUROSEMIDE 40 MG TABLET PO SCH (09:00)
[2017-02-24] MEDS ORDERED: ATENOLOL 50 MG TABLET PO SCH (09:00)
--- NOTE | 2017-02-24 13:59 | DS ---
(1) Toxic metabolic encephalopathy Problem: Acute (2) Seizure disorder Problem: Suspected (3) Hyperglycemia Problem: Acute (4) Syncope and collapse Problem: Suspected (5) Contusion of face Problem: Acute Qualifiers: Encounter type: initial encounter Qualified Code(s): S00.83XA - Contusion of other part of head, initial encounter (6) Type 2 diabetes mellitus Problem: Chronic (7) Closed fracture nasal bone Problem: Acute Qualifiers: Encounter type: subsequent encounter Description of Stay: ADMISSION DATE: 02/23/2017 DISCHARGE DATE: 02/24/2017 ADMISSION HPI: Unfortunately, at the time of my exam there was no family or any witnesses to talk to and the patient was very lethargic and altered and unable to provide me with any information. According to the ED record, the "patient got up to go to the bathroom and tripped and struck her face. She became incontinent and had a period of confusion after the fall. She states she's done this before." HOSPITAL COURSE: The patient was admitted to the hospital for further evaluation of her episode of losing consciousness. It is unclear whether she lost consciousness and this led to the fall or if she had a mechanical fall and hit her head which then resulted in losing consciousness. The patient remained stable overnight and the following morning she was completely alert and oriented but was unable to tell me exactly what happened and the circumstances that led to her fall. Given the fact that the patient became incontinent and had a period of confusion after the fall, there was concern for a possible underlying seizure disorder. The patient completed an awake EEG prior to discharge. The patient was discharged home in stable condition and instructed to follow-up with her primary care physician within one week and that we would let her know the results of her EEG as soon as they were available. The patient was not started on any antiepileptic medications at this time. We will await the final interpretation of the patient's EEG prior to making this decision. All lab work was essentially unremarkable except her thyroid labs and her elevated BG. I have increased her home levothyroxine dose to 88mcg daily. I will plan to repeat a TSH and free T4 in approximately 6-8 weeks. Ice and pain control as needed for non-displaced nasal bone fracture. FOLLOW-UP APPOINTMENTS: -Follow-up with PCP within 1 week -Dr. Abraham's office will call the patient tomorrow (02/24/2017) to discuss the results of her EEG NEW OR CHANGED MEDICATIONS: -Glipizide 10mg PO BID with meals -Levothyroxine 88mcg PO daily DISCONTINUED MEDICATIONS: None RADIOLOGY REPORTS: CT of the cervical spine without contrast on 02/23/2017: No acute fracture dislocation. Extensive degenerative change. CT of the head without contrast on 02/23/2017: Acute nondisplaced fracture of the right nasal bone with underlying soft tissue swelling. No acute intracranial abnormality identified. Procedures Performed: none Results and Findings: Microbiology 02/23/17 09:10 Urine,Catheterized Urine Culture - Final No Growth Laboratory Tests 02/23/17 02/23/17 02/23/17 08:25 08:25 08:25 WBC 7.1 Hgb 13.0 Plt Count 237 Sodium 136 Plasma Sodium 141 Potassium 4.3 Chloride 99 Carbon Dioxide 29.8 Anion Gap 11.5 BUN 22 Creatinine 1.33 Est GFR (Non-Af Amer) 42 L BUN/Creatinine Ratio 16.5 Random Glucose 409 H Calcium 8.6 Calcium Adj for Albumin 8.9 Magnesium 1.8 Total Bilirubin 0.2 AST 11 ALT 13 L Alkaline Phosphatase 146 Total Protein 6.8 Albumin 3.2 L TSH Free T4 Urine Opiates Screen Barbiturate Screen Ur Phencyclidine Scrn Urine Amphetamine U Benzodiazepines Scrn Urine Cocaine Screen Urine Marijuana (THC) Ethyl Alcohol Less than 3.0 Serum Ketones 02/23/17 02/23/17 02/23/17 08:25 08:25 09:10 WBC Hgb Plt Count Sodium Plasma Sodium Potassium Chloride Carbon Dioxide Anion Gap BUN Creatinine Est GFR (Non-Af Amer) BUN/Creatinine Ratio Random Glucose Calcium Calcium Adj for Albumin Magnesium Total Bilirubin AST ALT Alkaline Phosphatase Total Protein Albumin TSH 4.547 H Free T4 0.61 L Urine Opiates Screen Negative Barbiturate Screen Negative Ur Phencyclidine Scrn Negative Urine Amphetamine Negative U Benzodiazepines Scrn Negative Urine Cocaine Screen Negative Urine Marijuana (THC) Negative Ethyl Alcohol Serum Ketones Negative Discharge Disposition: Home self care Disposition: Home self-care Condition: Stable Discharge Activity: Activity as tolerated Discharge Diet: Consistent carbs, Low salt, Low fat/chol Problem Oriented Discharge Instructions to Patient/Family: Hyperglycemia, Easy- to-Read Additional Patient Instructions (free text): -Please make TCM appointment unless residential discharge. Thank you! Jenn @ [phone]. -Follow-up with Dr. Abraham on 03/04/17 at 2:15pm. -Dr. Abraham's office will call the patient tomorrow (02/24/2017) to discuss the results of her EEG Prescriptions (Any new or edited meds): glipiZIDE [Glucotrol] 10 mg PO BIDAC #120 tablet Levothyroxine Sodium [Synthroid] 88 mcg PO DAILY #30 tablet Complete Home Medications List: Complete Home Medication List: Albuterol Sulfate [Albuterol Sulfate 2.5 MG/0.5ML] 1 vial IH Q6H 09/12/15 Aspirin 325 mg PO DAILY 09/12/15 Gabapentin [Neurontin] 600 mg PO TID 09/12/15 Meloxicam [Mobic] 15 mg PO DAILY 09/12/15 Multivitamin [One Daily Essential] 1 each PO DAILY 09/12/15 Omeprazole [Prilosec] 20 mg PO BID 09/12/15 Promethazine HCl [Phenergan (Promethazine)] 25 mg PO QID PRN 09/12/15 Venlafaxine HCl [Venlafaxine HCl ER] 150 mg PO DAILY 09/12/15 Zolpidem Tartrate [Ambien] 15 mg PO HS PRN 09/12/15 lamoTRIgine [Lamictal] 200 mg PO DAILY 09/12/15 Albuterol Sulfate [Albuterol Sulfate 2.5 MG/3 ML] 2.5 mg IH Q6H PRN 02/23/17 Aspirin/Acetaminophen/Caffeine [Excedrin Migraine Caplet] 1 each PO DAILY PRN Atenolol [Tenormin] 50 mg PO DAILY 02/23/17 Atorvastatin Calcium [Lipitor] 40 mg PO HS 02/23/17 Cyclobenzaprine HCl 10 mg PO TID PRN 02/23/17 Fenofibrate 160 mg PO DAILY 02/23/17 Ferrous Sulfate [Iron] 325 mg PO DAILY 02/23/17 Furosemide [Lasix] 40 mg PO DAILY 02/23/17 Hydroxyzine HCl 25 mg PO QID 02/23/17 LORazepam [Ativan] 0.5 mg PO TID PRN 02/23/17 Nitroglycerin 0.4 mg SL PRN PRN 02/23/17 Potassium Gluconate [Potassium] 99 mg PO DAILY 02/23/17 traZODone HCL [Trazodone HCl] 150 mg PO HS 02/23/17 Acetaminophen [Tylenol] 650 mg PO QID PRN tablet 02/24/17 Levothyroxine Sodium [Synthroid] 88 mcg PO DAILY #30 tablet 02/24/17 glipiZIDE [Glucotrol] 10 mg PO BIDAC #120 tablet 02/24/17
[2017-02-24] MEDS ORDERED: FLU VACC QS2017-18(6MOS UP)/PF 60 MCG/0.5 ML SYRINGE IM ONE (14:00)
[2017-02-24 15:26] VITALS: BP 112/75
== END 2017-02-24 16:25 | disposition home or self-care (01) ==
LOC: ER 07:48 → MS 10:32
PROVIDERS: ADMIT Internal Medicine; ATTEND Internal Medicine
DX: G92 Toxic encephalopathy (principal); R41.82 Altered mental status, unspecified; E03.9 Hypothyroidism, unspecified; E11.65 Type 2 diabetes mellitus with hyperglycemia; S00.33XA Contusion of nose, initial encounter; W18.30XA Fall on same level, unspecified, initial encounter; Z91.81 History of falling; Y92.019 Unspecified place in single-family (private) house as the place of occurrence of the external cause; S02.2XXA Fracture of nasal bones, initial encounter for closed fracture; I10 Essential (primary) hypertension; E78.5 Hyperlipidemia, unspecified; E66.9 Obesity, unspecified; Z68.39 Body mass index [BMI] 39.0-39.9, adult
CPT/HCPCS: 36415; 70450; 70486; 72125; 80053; 80307; 81001; 82009; 83735; 84439; 84443; 85025; 87086; 93005; 95812; 96372; 99284; G0378; G0481

== ENCOUNTER 2017-11-19 10:08 | Observation (INO) | payer MEDICAID, MEDICARE ==
[2017-11-19] MEDS ORDERED: diphenhydrAMINE HCL 12.5 MG/5 ML BTL PO ONE (10:31)
[2017-11-19] MEDS ORDERED: MAG HYDROX/ALUMINUM HYD/SIMETH 30 ML UDC PO ONE (10:31)
[2017-11-19] MEDS ORDERED: LIDOCAINE HCL 20 ML UDC MM ONE ×2 (10:31→20:55)
[2017-11-19 10:58] LABS: Mean Cell Volume 92.7 fl (78-100); Mean Corpuscular Hemoglobin 28.9 pg (27-31); Mean Corpuscular Hgb Conc 31.1 g/dl (32-36); Mean Platelet Volume 8.9 fl (8-12.5); Neutrophil # 4.6 K/mm3 (1.3-6.0); Neutrophil % 68.2 % (42-75.0); Platelet Count 241 K/mm3 (150-450); Red Blood Count 2.46 M/mm3 (4.2-5.4); Red Cell Distribution Width 15.7 % (11.5-14.0); White Blood Count 6.7 K/mm3 (4.0-10.5)
[2017-11-19 11:03] LABS: Hemoglobin 7.1 gm/dL (12.5-16.0)
[2017-11-19 11:04] LABS: Hematocrit 22.8 % (37.0-47.0)
[2017-11-19 11:15] LABS: Troponin I Less than 0.017 ng/mL (0.00-0.10)
[2017-11-19 11:19] LABS: ALT 20 U/L (19-67); AST 14 U/L (0-48); Albumin * 2.8 gm/dl (3.4-5.0); Alkaline Phosphatase * 95 U/L (50-170); Anion Gap 13.5 mmol/L (6.8-13.8); BNP * 497 pg/mL (5-325); BUN/Creatinine Ratio 22.2 (9.0-21.6); Bilirubin, Total 0.2 mg/dL (0.0-1.1); Blood Urea Nitrogen 28 mg/dL (3-23); Ca. Corrected For Albumin 8.6 mg/dL (8.4-10.2); Carbon Dioxide 22.7 mmol/L (24-32.6); Chloride 104 mmol/L (97-106); Glucose * 218 mg/dL (70-110); Potassium 4.2 mmol/L (3.4-4.6); Sodium 136 mmol/L (132-142); Total Protein 5.5 gm/dL (6.2-8.2)
[2017-11-19] MEDS ORDERED: FUROSEMIDE 10 MG/ML VIAL IV ONE ×2 (11:54→20:47)
--- NOTE | 2017-11-19 11:55 | ERNOTE ---
Dyspnea - Date Date of Service: 11/19/17 - General Presenting Symptoms: shortness of breath Time Seen by Provider: 11/19/17 10:25 Source: patient Exam Limitations: no limitations - Immun/Allergies/Home Medications Immunizations: IMMUNIZATION HX Immunizations Up to Date Yes History of Influenza Vaccine Yes Hx Pneumococcal Vaccination More Information Required Allergies/Adverse Reactions: Allergies lithium Adverse Reaction (Intermediate, Verified 11/19/17 10:16) Other - History of Present Illness Narrative: Patient presents to the ED for mouth pain and SOB. She relates that she has been gradually getting more SOB. She states she cannot walk more than a few paces without needing to stop to rest. She states also that her mouth is hurting, she has been on Nystatin for this but it hasn't helped. No fever. No CP or SOB. No blood in the stool. No vomiting blood. Denies new leg swelling. Severity: moderate Treatment TERMINAL OPERATOR: none Initiating event: Reports: none Frequency of episodes: Reports: occassional episodes Modifying Factors - (Improves): Reports: rest Modifying Factors (Worsens): Reports: other - walking Associated Symptoms-Dyspnea: Denies: fever/chills, chest pain/discomfort, leg/calf pain, tingling of hands/face Prior Treatment: Reports: recently seen. Denies: currently on antibiotics Review of Systems - Review of Systems Constitutional: Absent: fever Respiratory: Present: shortness of breath Cardiology: Absent: chest pain Gastrointestinal/Abdominal: Absent: abdominal pain Neurological: Present: other - no acute focal weakness All Other Systems: All systems neg except as marked Medical History (Last Updated 11/19/17 @ 11:52 by Harsha Austin MD) A-fib A-fib Social History: Preferred Language Malaysian Do you have any baptism or Yes: islam cultural preference? Smoking Status Former smoker Have you smoked in the past 12 No months Do you dip or chew tobacco No Alcohol Use none Drug Use none Physical Exam - Physical Exam General Appearance: Present: alert, no apparent distress Head Exam: Present: normal inspection, no evidence of injury Eye Exam: Normal inspection: bilateral, PERRL: bilateral Ears, Nose, Throat: Present: normal ENT inspection Neck: Present: normal inspection Respiratory: Present: no respiratory distress, normal breath sounds, no accessory muscle use, lungs clear Cardiovascular/Chest: Present: regular rate, rhythm, normal peripheral pulses Gastrointestinal/Abdominal: Present: normal bowel sounds, nontender, soft Back Exam: Absent: CVA tenderness (R), CVA tenderness (L) Extremity Exam: Present: extremity edema Neurological Exam: Present: alert, other - no acute unilateral focal motor or sensory deficits Skin Exam: Present: warm/dry, pallor ED Progress - Results and Orders Patient's Lab Results:: I have reviewed the patient's lab results. - Vital Signs Patient's Vital Signs:: I have reviewed the patient's vital signs. Vital Signs: Vital Signs 11/19/17 10:11 Temperature 36.5 C Pulse Rate 69 Respiratory Rate 15 Blood Pressure 124/53 O2 Sat by Pulse Oximetry 100 - EKG EKG: NSR EKG read: Interp. by me EKG Comments: NSR rate 67. Non-specific, no STEMI - X-Ray X-Ray #1 X-Ray: chest Interpretation: Interp. by me X-ray Comments: I reviewed official radiology report - Progress/Reassessment Chief Complaint: Dyspnea Progress Note-Subjective: 11/19/17 11:54 Symptomatic anemia. 1 UPRBCs ordered. IV lasix prior. D/W Dr Cruz, he will admit, patient agreeable. 11/19/17 11:54 I reviewed old chart, labs, PMHx, PSHx, Social and Fam Hx. Departure Clinical Impression: Symptomatic anemia, CHF (congestive heart failure) - Departure Disposition: Still a patient Condition: Stable
--- NOTE | 2017-11-19 21:16 | HP ---
Chief Complaint - Chief Complaint Date of Service: 11/19/17 Time of Service: 21:03 Chief Complaint: weakness, sob, lightheadedness, mouth soreness History of Present Illness: Michelle Rodriguez is a 67-year-old female who had a stroke earlier this year and then was placed on Eliquis for stroke prevention afterwards. Since then she's had a slow progressive decline in hemoglobin. She's had at least one other transfusion. She became short of breath and some trouble just walking across the room in her home. She became weak and lightheaded. She presented to the emergency room and was found to have a hemoglobin of 7.1 g and was transfused 1 unit of packed red blood cells and admitted for observation and possibly more blood. This evening she is feeling some better although still has shortness of breath walking. Her color is unchanged. Remains pale. She is feeling a little stronger and less lightheaded. Her Hemoccult stool was positive. Medical History (Last Reviewed 11/19/17 @ 15:27 by Irma Maguire RN) A-fib A-fib Atrial fibrillation Coronary artery disease Diabetes type 2, controlled Hypertension Melanoma Pneumonia Right clavicle fracture Stroke Surgical History: Surgical History (Last Reviewed 11/19/17 @ 15:27 by Irma Maguire RN) H/O tubal ligation History of cataract extraction with lens replacement History of left hip replacement History of right hip replacement Status post double vessel coronary artery bypass Family History: Family History (Last Reviewed 11/19/17 @ 15:27 by Irma Maguire RN) Mother Diabetes Father Parkinsons disease Social History: Patient Lives/Resources With Spouse Utilized Occupation Retired Preferred Language Yi Do you have any nondenominational or Yes: Zoroastrian cultural preference? Smoking Status Former smoker Have you smoked in the past 12 No months Do you dip or chew tobacco No Alcohol Use none Drug Use none Review Of Systems (GEN) - Review of Systems Generalized/Overall Review: Present: Weakness, Malaise, Fatigue EENTM: Present: No Symptoms Reported Respiratory: Present: Shortness of Breath Cardiac: Present: No Symptoms Reported Abdominal: Present: No Symptoms Reported Genitourinary: Present: No Symptoms Reported Musculoskeletal: Present: No Symptoms Reported Neurological: Present: Weakness Skin: Present: No Symptoms Reported, Change in Color - To more pale Endocrine: Present: No Symptoms Reported Immunizations: IMMUNIZATION HX Immunizations Up to Date Yes History of Influenza Vaccine Yes Hx Pneumococcal Vaccination More Information Required Allergies/Adverse Reactions: Allergies Allergy/AdvReac Type Severity Reaction Status Date / Time lithium AdvReac Intermediate Other Verified 11/19/17 15:27 Home Medications: HOME MEDICATIONS Amiodarone HCl 200 mg PO DAILY 11/19/17 [Last Taken Unknown] Apixaban [Eliquis] 5 mg PO BID 11/19/17 [Last Taken Unknown] Atenolol [Tenormin] 50 mg PO BID 11/19/17 [Last Taken Unknown] Atenolol [Tenormin] 50 mg PO DAILY 11/19/17 [Last Taken Unknown] Atorvastatin Calcium 80 mg PO HS 11/19/17 [Last Taken Unknown] Cyclobenzaprine HCl [Flexeril] 10 mg PO TID PRN 11/19/17 [Last Taken Unknown] Furosemide [Lasix] 40 mg PO DAILY 11/19/17 [Last Taken Unknown] Ketorolac Tromethamine/Pf [Acuvail] 1 lf OP BID 11/19/17 [Last Taken Unknown] LORazepam [Ativan] 1 mg PO TID PRN 11/19/17 [Last Taken Unknown] Levothyroxine Sodium [Synthroid] 75 mcg PO DAILY 11/19/17 [Last Taken Unknown] Nitroglycerin 0.4 mg SL PRN 11/19/17 [Last Taken Unknown] Nystatin 2 ml PO QID 11/19/17 [Last Taken Unknown] Ofloxacin [Floxin Otic] 1 drop LEFTEYE QID 11/19/17 [Last Taken Unknown] Omeprazole [Prilosec] 20 mg PO BID 11/19/17 [Last Taken Unknown] Prednisolone Acetate/Pf [Prednisolone Acet 1% Eye Drop] 1 drop LEFTEYE QID 11/19/17 [Last Taken Unknown] Promethazine HCl [Phenergan (Promethazine)] 25 mg PO QID PRN 11/19/17 [Last Taken Unknown] QUEtiapine FUMARATE [Seroquel] 50 mg PO HS 11/19/17 [Last Taken Unknown] Venlafaxine HCl [Venlafaxine HCl ER] 150 mg PO DAILY 11/19/17 [Last Taken Unknown] glipiZIDE [Glipizide] 5 mg PO BID 11/19/17 [Last Taken Unknown] lamoTRIgine [Lamictal] 200 mg PO DAILY 11/19/17 [Last Taken Unknown] Exam - Exam Vital Signs: Vital Signs - Last Taken Temp 36.6 C 11/19/17 17:08 Pulse 57 L 11/19/17 17:08 Resp 16 11/19/17 17:08 BP 124/65 11/19/17 17:08 Pulse Ox 97 11/19/17 17:08 Constitutional: Present: Alert, Oriented x3, Cooperative, Well developed, Well nourished, No distress ENT Exam: Present: normal ENT inspection, hearing grossly normal, pharynx normal, TMs normal Eye Exam: bilateral eye: normal inspection, PERRL, EOMI Neck: Present: non-tender, full range of motion, supple Back Exam: Present: normal inspection, no CVA tenderness, no vertebral tenderness Breasts: Present: Exam deferred Respiratory: Present: chest non-tender, lungs clear, normal breath sounds, no respiratory distress - Except for shortness of breath when walking, No rales, No wheezing Cardiovascular/Chest: Present: normal peripheral pulses, regular rate, rhythm, no chest tenderness, no edema, no gallop, no JVD, no murmur, no rub Peripheral Pulses: carotid (R): 2+, carotid (L): 2+, radial (R): 2+, radial (L): 2+ Abdomen: Present: Normal bowel sounds, soft, nontender, nondistended, no rebound tenderness, no hepatospenomegaly, no masses, obese /Rectal: Present: Exam deferred Extremity: Present: normal range of motion, non-tender, normal inspection, no pedal edema, no calf tenderness Skin Exam: Present: normal color, warm/dry, no cyanosis Neurologic: Present: 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, no motor/sensory deficits, alert, normal mood/affect, oriented x 3 Appearance: Present: appropriate appearance, appropriate insight, neat Eye contact: Present: cooperative, good eye contact Thoughts: Present: normal thought pattern, no apparent hallucination Diagnostic Studies: Abnormal Lab Results 11/19/17 11/19/17 11/19/17 Range/Units 10:45 10:45 11:30 RBC 2.46 L (4.2-5.4) M/mm3 Hgb 7.1 L* (12.5-16.0) gm/dL Hct 22.8 L* (37.0-47.0) % MCHC 31.1 L (32-36) g/dl RDW 15.7 H (11.5-14.0) % Lymphocytes % 18.9 L (20-51) % Eosinophils % 3.1 H (0.0-3.0) % Lymphocytes # 1.27 L (1.5-3.5) k/mm3 Carbon Dioxide 22.7 L (24-32.6) mmol/L BUN 28 H (3-23) mg/dL Est GFR (Non-Af Amer) 45 L (60-130) mL/min BUN/Creatinine Ratio 22.2 H (9.0-21.6) Random Glucose 218 H (70-110) mg/dL B-Natriuretic Peptide 497 H (5-325) pg/mL Total Protein 5.5 L (6.2-8.2) gm/dL Albumin 2.8 L (3.4-5.0) gm/dl Stool Occult Blood Crossmatch See Detail 11/19/17 Range/Units 12:25 RBC (4.2-5.4) M/mm3 Hgb (12.5-16.0) gm/dL Hct (37.0-47.0) % MCHC (32-36) g/dl RDW (11.5-14.0) % Lymphocytes % (20-51) % Eosinophils % (0.0-3.0) % Lymphocytes # (1.5-3.5) k/mm3 Carbon Dioxide (24-32.6) mmol/L BUN (3-23) mg/dL Est GFR (Non-Af Amer) (60-130) mL/min BUN/Creatinine Ratio (9.0-21.6) Random Glucose (70-110) mg/dL B-Natriuretic Peptide (5-325) pg/mL Total Protein (6.2-8.2) gm/dL Albumin (3.4-5.0) gm/dl Stool Occult Blood Positive H Crossmatch Laboratory Results WBC 6.7 K/mm3 (4.0-10.5) 11/19/17 10:45 RBC 2.46 M/mm3 (4.2-5.4) L 11/19/17 10:45 Hgb 7.1 gm/dL (12.5-16.0) L* 11/19/17 10:45 Hct 22.8 % (37.0-47.0) L* 11/19/17 10:45 MCV 92.7 fl (78-100) 11/19/17 10:45 MCH 28.9 pg (27-31) 11/19/17 10:45 MCHC 31.1 g/dl (32-36) L 11/19/17 10:45 RDW 15.7 % (11.5-14.0) H 11/19/17 10:45 Plt Count 241 K/mm3 (150-450) 11/19/17 10:45 MPV 8.9 fl (8-12.5) 11/19/17 10:45 Immature Gran % (Auto) 0.30 % (0.001-0.429) 11/19/17 10:45 Immature Gran # (Auto) 0.02 K/mm3 (0.000-0.0310) 11/19/17 10:45 Neutrophils % 68.2 % (42-75.0) 11/19/17 10:45 Lymphocytes % 18.9 % (20-51) L 11/19/17 10:45 Monocytes % 8.9 % (0.0-9) 11/19/17 10:45 Eosinophils % 3.1 % (0.0-3.0) H 11/19/17 10:45 Basophils % 0.6 % (0.0-1.0) 11/19/17 10:45 Nucleated RBC % 0.0 k/mm3 (0-1) 11/19/17 10:45 Neutrophils # 4.6 K/mm3 (1.3-6.0) 11/19/17 10:45 Lymphocytes # 1.27 k/mm3 (1.5-3.5) L 11/19/17 10:45 Monocytes # 0.6 k/mm3 (0.0-1.0) 11/19/17 10:45 Eosinophils # 0.2 k/mm3 (0.0-0.7) 11/19/17 10:45 Absolute Basophils 0.0 k/mm3 (0.0-0.1) 11/19/17 10:45 Sodium 136 mmol/L (132-142) 11/19/17 10:45 Plasma Sodium 138 mmol/L (130-142) 11/19/17 10:45 Potassium 4.2 mmol/L (3.4-4.6) 11/19/17 10:45 Chloride 104 mmol/L (97-106) 11/19/17 10:45 Carbon Dioxide 22.7 mmol/L (24-32.6) L 11/19/17 10:45 Anion Gap 13.5 mmol/L (6.8-13.8) 11/19/17 10:45 BUN 28 mg/dL (3-23) H 11/19/17 10:45 Creatinine 1.26 mg/dL (0.4-1.4) 11/19/17 10:45 Est GFR (Non-Af Amer) 45 mL/min (60-130) L 11/19/17 10:45 BUN/Creatinine Ratio 22.2 (9.0-21.6) H 11/19/17 10:45 Random Glucose 218 mg/dL (70-110) H 11/19/17 10:45 Calcium 8.0 mg/dL (7.9-10.9) 11/19/17 10:45 Calcium Adj for Albumin 8.6 mg/dL (8.4-10.2) 11/19/17 10:45 Total Bilirubin 0.2 mg/dL (0.0-1.1) 11/19/17 10:45 AST 14 U/L (0-48) 11/19/17 10:45 ALT 20 U/L (19-67) 11/19/17 10:45 Alkaline Phosphatase 95 U/L (50-170) 11/19/17 10:45 Troponin I Less than 0.017 ng/mL (0.00-0.10) 11/19/17 10:45 B-Natriuretic Peptide 497 pg/mL (5-325) H 11/19/17 10:45 Total Protein 5.5 gm/dL (6.2-8.2) L 11/19/17 10:45 Albumin 2.8 gm/dl (3.4-5.0) L 11/19/17 10:45 Stool Occult Blood Positive H 11/19/17 12:25 Blood Type A Positive 11/19/17 11:30 Antibody Screen Negative 11/19/17 11:30 Crossmatch See Detail 10/03/18 11:30 Assessment/Plan - Narrative Narrative: Transfused 2 units of packed red blood cells 2. Recheck CBC and CMP tomorrow morning routinely 3. Consider surgical consultation for lower endoscopy at some point in the future as an outpatient - Assessment/Plan (1) Symptomatic anemia Problem: Acute (2) BECK (dyspnea on exertion) Problem: Acute (3) Sore mouth Problem: Chronic
[2017-11-19 21:22] LABS: Hematocrit 26.7 % (37.0-47.0); Hemoglobin 8.4 gm/dL (12.5-16.0); Mean Cell Volume 91.4 fl (78-100); Mean Corpuscular Hemoglobin 28.8 pg (27-31); Mean Corpuscular Hgb Conc 31.5 g/dl (32-36); Mean Platelet Volume 8.8 fl (8-12.5); Neutrophil # 5.8 K/mm3 (1.3-6.0); Neutrophil % 62.2 % (42-75.0); Platelet Count 250 K/mm3 (150-450); Red Blood Count 2.92 M/mm3 (4.2-5.4); Red Cell Distribution Width 15.4 % (11.5-14.0); White Blood Count 9.3 K/mm3 (4.0-10.5)
[2017-11-20] MEDS ORDERED: FUROSEMIDE 10 MG/ML VIAL IV ONE (05:00)
[2017-11-20 05:37] LABS: Hematocrit 34.1 % (37.0-47.0); Hemoglobin 10.7 gm/dL (12.5-16.0); Mean Cell Volume 89.3 fl (78-100); Mean Corpuscular Hgb Conc 31.4 g/dl (32-36); Mean Platelet Volume 8.6 fl (8-12.5); Neutrophil # 4.8 K/mm3 (1.3-6.0); Platelet Count 227 K/mm3 (150-450); Red Blood Count 3.82 M/mm3 (4.2-5.4); Red Cell Distribution Width 15.5 % (11.5-14.0); White Blood Count 7.7 K/mm3 (4.0-10.5)
[2017-11-20 05:48] LABS: Albumin * 2.9 gm/dl (3.4-5.0); Anion Gap 8.8 mmol/L (6.8-13.8); BUN/Creatinine Ratio 20.8 (9.0-21.6); Bilirubin, Total 0.5 mg/dL (0.0-1.1); Ca. Corrected For Albumin 8.6 mg/dL (8.4-10.2); Carbon Dioxide 26.4 mmol/L (24-32.6); Potassium 4.2 mmol/L (3.4-4.6); Total Protein 5.7 gm/dL (6.2-8.2)
--- NOTE | 2017-11-20 10:24 | DS ---
(1) Symptomatic anemia Problem: Acute (2) Sore mouth Problem: Chronic (3) BECK (dyspnea on exertion) Problem: Acute Description of Stay: Michelle Rodriguez is a 67-year-old female who is admitted to observation for blood transfusions. She had a hemoglobin of 7.1 g when she presented to the emergency room and was symptomatic with shortness of breath, weakness, and lightheadedness. She received a total of 3 units of packed red blood cells that brought her hemoglobin to 10.2 mg this morning. She is feeling much better. Her color is improved. She is walking without dyspnea now. She's had no further lightheadedness and she feels stronger. Her stool for occult blood was positive. I have continued her on Eliquis for stroke prevention. She will come in the office in 2 weeks and I'll repeat a hemoglobin and hematocrit then. I will also talk to her about getting a lower endoscopy if she is still bleeding. Procedures Performed: none Results and Findings: Lab Pending Results 11/19/17 10:45: WBC 6.7, RBC 2.46 L, Hgb 7.1 L*, Hct 22.8 L*, MCV 92.7, MCH 28.9, MCHC 31.1 L, RDW 15.7 H, Plt Count 241, MPV 8.9, Immature Gran % (Auto) 0.30, Immature Gran # (Auto) 0.02, Neutrophils % 68.2, Lymphocytes % 18.9 L, Monocytes % 8.9, Eosinophils % 3.1 H, Basophils % 0.6, Nucleated RBC % 0.0, Neutrophils # 4.6, Lymphocytes # 1.27 L, Monocytes # 0.6, Eosinophils # 0.2, Absolute Basophils 0.0 11/19/17 10:45: Sodium 136, Plasma Sodium 138, Potassium 4.2, Chloride 104, Carbon Dioxide 22.7 L, Anion Gap 13.5, BUN 28 H, Creatinine 1.26, Est GFR (Non- Af Amer) 45 L, BUN/Creatinine Ratio 22.2 H, Random Glucose 218 H, Calcium 8.0, Calcium Adj for Albumin 8.6, Total Bilirubin 0.2, AST 14, ALT 20, Alkaline Phosphatase 95, Troponin I Less than 0.017, B-Natriuretic Peptide 497 H, Total Protein 5.5 L, Albumin 2.8 L 11/19/17 11:30: Blood Type A Positive, Antibody Screen Negative, Crossmatch See Detail 11/19/17 12:25: Stool Occult Blood Positive H 11/19/17 21:15: WBC 9.3 D, RBC 2.92 L, Hgb 8.4 L, Hct 26.7 L, MCV 91.4, MCH 28.8, MCHC 31.5 L, RDW 15.4 H, Plt Count 250, MPV 8.8, Immature Gran % (Auto) 0.50 H, Immature Gran # (Auto) 0.05 H, Neutrophils % 62.2, Lymphocytes % 23.8, Monocytes % 11.1 H, Eosinophils % 1.8, Basophils % 0.6, Nucleated RBC % 0.0, Neutrophils # 5.8, Lymphocytes # 2.22, Monocytes # 1.0, Eosinophils # 0.2, Absolute Basophils 0.1 11/20/17 05:30: WBC 7.7, RBC 3.82 L, Hgb 10.7 L, Hct 34.1 L, MCV 89.3, MCH 28.0, MCHC 31.4 L, RDW 15.5 H, Plt Count 227, MPV 8.6, Immature Gran % (Auto) 0.40, Immature Gran # (Auto) 0.03, Neutrophils % 62.0, Lymphocytes % 23.7, Monocytes % 10.6 H, Eosinophils % 2.5, Basophils % 0.8, Nucleated RBC % 0.0, Neutrophils # 4.8, Lymphocytes # 1.83, Monocytes # 0.8, Eosinophils # 0.2, Absolute Basophils 0.1 11/20/17 05:30: Sodium 134, Plasma Sodium 135, Potassium 4.2, Chloride 103, Carbon Dioxide 26.4, Anion Gap 8.8, BUN 25 H, Creatinine 1.20, Est GFR (Non-Af Amer) 48 L, BUN/Creatinine Ratio 20.8, Random Glucose 172 H, Calcium 8.0, Calcium Adj for Albumin 8.6, Total Bilirubin 0.5, AST 12, ALT 22, Alkaline Phosphatase 100, Total Protein 5.7 L, Albumin 2.9 L Discharge Location: Home Disposition: Home self-care Condition: Stable Face to Face Encounter completed per CMS Guidelines: No Discharge Activity: Activity as tolerated Discharge Diet: General/regular food Additional Patient Instructions (free text): -Please make TCM appointment unless penitentiary discharge. Thank you! Jenn @ ext:[phone]. See me in the office in 2 weeks. Report any signs of gross bleeding. Complete Home Medications List: Complete Home Medication List: Albuterol Sulfate [Albuterol Sulfate 2.5 MG/3 ML] 2.5 mg IH Q6H 06/12/17 Aspirin [Aspirin EC] 81 mg PO DAILY 06/12/17 Atorvastatin Calcium 40 mg PO HS 06/12/17 Fenofibrate 160 mg PO DAILY 06/12/17 Ferrous Sulfate 325 mg PO DAILY 06/12/17 Furosemide [Lasix] 40 mg PO DAILY 06/12/17 Gabapentin 600 mg PO TID 06/12/17 Meloxicam [Mobic] 15 mg PO DAILY 06/12/17 Multivitamin [One Daily Multivitamin] 1 ea PO DAILY 06/12/17 Nitroglycerin [Nitrostat] 0.4 mg SL Q5MIN PRN 06/12/17 Omeprazole 20 mg PO DAILY 06/12/17 Potassium 99 mg PO DAILY 06/12/17 Zolpidem Tartrate [Ambien] 15 mg PO HS PRN 06/12/17 hydrOXYzine HCL [Atarax] 25 mg PO Q4H PRN 06/12/17 lamoTRIgine [Lamictal Xr] 200 mg PO DAILY 06/12/17 traZODone HCL [Desyrel] 150 mg PO HS 06/12/17 cholecalciferol (vitamin D3) 5,000 unit capsule 5,000 unit PO DAILY #1 cap 08/18/17 atenolol 50 mg tablet 50 mg PO BID #30 tab 08/28/17 amlodipine 5 mg tablet 5 mg PO DAILY #30 tab 08/29/17 venlafaxine ER 150 mg capsule,extended release 24 hr 150 mg PO DAILY #30 cap 09/02/17 cyclobenzaprine 10 mg tablet 10 mg PO TID PRN #90 tab 09/04/17 Magnesium Oxide [Mag-Ox 400] 400 mg PO DAILY #30 tab 09/06/17 Nitrofurantoin/Nitrofuran Mac [Macrobid] 100 mg PO Q12H #14 cap 09/06/17 levothyroxine 75 mcg capsule 75 mcg PO DAILY #30 cap 09/19/17 quetiapine 50 mg tablet 50 mg PO HS #30 tab 09/19/17 glipizide 5 mg tablet 5 mg PO BID #180 tab 10/07/17 lorazepam 1 mg tablet 1 mg PO TID PRN #90 tab 10/07/17 Amiodarone HCl 200 mg PO DAILY 11/19/17 Apixaban [Eliquis] 5 mg PO BID 11/19/17 Atenolol [Tenormin] 50 mg PO BID 11/19/17 Atenolol [Tenormin] 50 mg PO DAILY 11/19/17 Atorvastatin Calcium 80 mg PO HS 11/19/17 Cyclobenzaprine HCl [Flexeril] 10 mg PO TID PRN 11/19/17 Furosemide [Lasix] 40 mg PO DAILY 11/19/17 Ketorolac Tromethamine/Pf [Acuvail 0.45% Ophth Solution] 1 lf OP BID 11/19/17 LORazepam [Ativan] 1 mg PO TID PRN 11/19/17 Levothyroxine Sodium [Synthroid] 75 mcg PO DAILY 11/19/17 Nitroglycerin 0.4 mg SL PRN 11/19/17 Nystatin 2 ml PO QID 11/19/17 Ofloxacin [Floxin Otic] 1 drop LEFTEYE QID 11/19/17 Omeprazole [Prilosec] 20 mg PO BID 11/19/17 Prednisolone Acetate/Pf [Prednisolone Acet 1% Eye Drop] 1 drop LEFTEYE QID 11/19/17 Promethazine HCl [Phenergan (Promethazine)] 25 mg PO QID PRN 11/19/17 QUEtiapine FUMARATE [Seroquel] 50 mg PO HS 11/19/17 Venlafaxine HCl [Venlafaxine HCl ER] 150 mg PO DAILY 11/19/17 glipiZIDE [Glipizide] 5 mg PO BID 11/19/17 lamoTRIgine [Lamictal] 200 mg PO DAILY 11/19/17 promethazine 25 mg tablet 25 mg PO QID PRN #60 tab 11/19/17
[2017-11-20 12:39] VITALS: BP 146/70
== END 2017-11-20 12:55 | disposition home or self-care (01) ==
LOC: MS 10:08 → ER 10:08 → MERGE 11:44 → MS 13:01
PROVIDERS: ADMIT Family Medicine; ATTEND Family Medicine
DX: D64.9 Anemia, unspecified
CPT/HCPCS: 36415; 36430; 71020; 71046; 80053; 82272; 83519; 83880; 84484; 85025; 86850; 86900; 93005; 94760; 96374; 96376; 99285; G0378; P9016

== ENCOUNTER 2018-05-12 09:00 | Observation (INO) ==
[2018-05-12] MEDS ORDERED: FUROSEMIDE 10 MG/ML VIAL IV ONE ×2 (12:24→17:58)
[2018-05-12] MEDS ORDERED: ACETAMINOPHEN 325 MG TABLET PO PRN (12:24)
[2018-05-12] MEDS ORDERED: ZOLPIDEM TARTRATE 10 MG TABLET PO PRN (12:34)
[2018-05-12] MEDS ORDERED: LORazepam 1 MG TABLET PO PRN (12:34)
[2018-05-12] MEDS ORDERED: PROMETHAZINE HCL 25 MG TABLET PO PRN (12:34)
[2018-05-12] MEDS ORDERED: hydrOXYzine HCL 25 MG TABLET PO PRN (12:34)
[2018-05-12] MEDS ORDERED: CYCLOBENZAPRINE HCL 10 MG TABLET PO PRN (12:34)
[2018-05-12] MEDS ORDERED: NITROGLYCERIN 0.4 MG/TAB BTL SL PRN (12:45)
[2018-05-12] MEDS ORDERED: KETOROLAC TROMETHAMINE 30 MG/ML VIAL IV ONE (12:59)
[2018-05-12] MEDS ORDERED: OFLOXACIN 50 DROP BTL EACH EAR SCH (13:00)
--- NOTE | 2018-05-12 13:16 | HP ---
Chief Complaint - Chief Complaint Date of Service: 05/12/18 Time of Service: 10:00 Chief Complaint: dyspnea, weakness History of Present Illness: Michelle presents today with chief complaint of shortness of breath with minor exertion. She just leans over to pick something up off the floor in a seated position she short of breath. In walking she drops her O2 sats to 88% after about 4 or 5 steps. She is visibly weak and pale in color. He has mild tachycardia with a heart rate of about 90 and blood pressure is normal. She has had a recent nuclear pharmacological stress test that was unrevealing for any new coronary disease. She has a history of coronary disease in done in the remote past. Her voice is weak although her questions statements are appropriate is hard for her because her voice volume is low. I saw her in the office this morning and sent her for lab, chest x-ray, and schedule an echocardiogram. Physical exam suggests her hemoglobin may be low with pale conjunctiva and poor blanching of the palmar creases. The hemoglobin came back at 7.1 g. Since she is symptomatic with her anemia has a history of both CVA and coronary disease she will qualify for 2-3 units of packed red blood cells. I will start with 2 units and then check her blood count 2 hours later and see if it comes up over 9 g. If not I'll plan to give her her third unit. Medical History (Last Reviewed 05/12/18 @ 09:16 by Danielle Bansal) Cataract cortical, senile (Chronic) External otitis of right ear (Acute) Oral candidiasis (Acute) Hyperesthesia (Acute) Fell and bumped the upper lip and has been overly sensitive since. Afib Atrial fibrillation CVA (cerebral vascular accident) Coronary artery disease Depression Diabetes type 2, controlled Hypertension Melanoma Removed from forehead Pneumonia Pneumonia Right clavicle fracture Stroke Toxic metabolic encephalopathy Type 2 diabetes mellitus Cardiac dysrhythmia Surgical History: Surgical History (Last Reviewed 05/12/18 @ 09:16 by Danielle Bansal) H/O bilateral hip replacements H/O coronary artery bypass surgery H/O tubal ligation History of back surgery History of cataract extraction with lens replacement Bilateral History of left hip replacement History of right hip replacement Status post double vessel coronary artery bypass bipap surgery Family History: Family History (Last Reviewed 05/12/18 @ 09:16 by Danielle Bansal) Mother , @ 83 Heart disease Diabetes Father , Unknown age Parkinsons disease Mother Diabetes Father Parkinsons disease Social History: Patient Lives/Resources With Spouse Utilized Occupation disability Preferred Language Nepalese Do you have any temple or Yes: holiness cultural preference? Smoking Status Never smoker Have you smoked in the past 12 No months (Last Reviewed 05/12/18 @ 09:16 by Danielle Bansal) No Social History Section defined Review Of Systems (GEN) - Review of Systems Generalized/Overall Review: Present: Weakness, Malaise EENTM: Present: No Symptoms Reported Respiratory: Present: Shortness of Breath. Absent: Orthopnea, Wheezing Cardiac: Present: No Symptoms Reported Abdominal: Present: No Symptoms Reported. Absent: Hematemesis, Abdominal Pain, Melena, Bright blood from rectum Genitourinary: Present: No Symptoms Reported Musculoskeletal: Present: Muscle Pain - Especially in her legs Neurological: Present: Numbness - In her feet Skin: Present: No Symptoms Reported Endocrine: Present: No Symptoms Reported Allergies/Adverse Reactions: Allergies Allergy/AdvReac Type Severity Reaction Status Date / Time lithium [[place]] AdvReac Mild leg pain Verified 05/12/18 12:48 Home Medications: HOME MEDICATIONS Albuterol Sulfate [Albuterol Sulfate 2.5 MG/3 ML] 2.5 mg IH Q6H 06/12/17 [Last Taken Unknown] Aspirin [Aspirin EC] 81 mg PO DAILY 06/12/17 [Last Taken Unknown] Fenofibrate 160 mg PO DAILY 06/12/17 [Last Taken Unknown] Ferrous Sulfate 325 mg PO DAILY 06/12/17 [Last Taken Unknown] Gabapentin 600 mg PO TID 06/12/17 [Last Taken Unknown] Multivitamin [One Daily Multivitamin] 1 ea PO DAILY 06/12/17 [Last Taken Unknown] Nitroglycerin [Nitrostat] 0.4 mg SL Q5MIN PRN 06/12/17 [Last Taken Unknown] Omeprazole 20 mg PO DAILY 06/12/17 [Last Taken Unknown] Potassium 99 mg PO DAILY 06/12/17 [Last Taken Unknown] hydrOXYzine HCL [Atarax] 25 mg PO Q4H PRN 06/12/17 [Last Taken Unknown] lamoTRIgine [Lamictal Xr] 200 mg PO DAILY 06/12/17 [Last Taken Unknown] traZODone HCL [Desyrel] 150 mg PO HS 06/12/17 [Last Taken Unknown] cholecalciferol (vitamin D3) 5,000 unit capsule 5,000 unit PO DAILY #1 cap 08/18/17 [Last Taken Unknown] atenolol 50 mg tablet 50 mg PO BID #30 tab 08/28/17 [Last Taken Unknown] amlodipine 5 mg tablet 5 mg PO DAILY #30 tab 08/29/17 [Last Taken Unknown] Magnesium Oxide [Mag-Ox 400] 400 mg PO DAILY #30 tab 09/06/17 [Last Taken Unknown] Nitrofurantoin/Nitrofuran Mac [Macrobid] 100 mg PO Q12H #14 cap 09/06/17 [Last Taken Unknown] Amiodarone HCl 200 mg PO DAILY 11/19/17 [Last Taken Unknown] Apixaban [Eliquis] 5 mg PO BID 11/19/17 [Last Taken Unknown] Atenolol [Tenormin] 50 mg PO BID 11/19/17 [Last Taken Unknown] Atenolol [Tenormin] 50 mg PO DAILY 11/19/17 [Last Taken Unknown] Atorvastatin Calcium 80 mg PO HS 11/19/17 [Last Taken Unknown] Ketorolac Tromethamine/Pf [Acuvail 0.45% Ophth Solution] 1 lf OPHTHALMIC (EYE) BID 11/19/17 [Last Taken Unknown] LORazepam [Ativan] 1 mg PO TID PRN 11/19/17 [Last Taken Unknown] Levothyroxine Sodium [Synthroid] 75 mcg PO DAILY 11/19/17 [Last Taken Unknown] Nitroglycerin 0.4 mg SUBLINGUAL PRN 11/19/17 [Last Taken Unknown] Nystatin 2 ml PO QID 11/19/17 [Last Taken Unknown] Ofloxacin [Floxin Otic] 1 drp LEFTEYE QID 11/19/17 [Last Taken Unknown] Omeprazole [Prilosec] 20 mg PO BID 11/19/17 [Last Taken Unknown] Prednisolone Acetate/Pf [Prednisolone Acet 1% Eye Drop] 1 drp LEFTEYE QID 11/19/17 [Last Taken Unknown] lamoTRIgine [Lamictal] 200 mg PO DAILY 11/19/17 [Last Taken Unknown] zolpidem 10 mg tablet 15 mg PO HS PRN #30 tab 12/02/17 [Last Taken Unknown] furosemide 40 mg tablet 40 mg PO DAILY #30 tab 02/19/18 [Last Taken Unknown] cyclobenzaprine 10 mg tablet 10 mg PO TID PRN #90 tab 03/04/18 [Last Taken Unknown] glipizide 5 mg tablet 5 mg PO BID #60 tab 03/04/18 [Last Taken Unknown] meloxicam 15 mg tablet 15 mg PO DAILY #30 tab 03/04/18 [Last Taken Unknown] promethazine 25 mg tablet 25 mg PO QID PRN #60 tab 03/04/18 [Last Taken Unknown] quetiapine 50 mg tablet 50 mg PO HS #30 tab 04/10/18 [Last Taken Unknown] venlafaxine ER 150 mg capsule,extended release 24 hr 150 mg PO DAILY #30 cap 04/14/18 [Last Taken Unknown] valacyclovir 1 gram tablet 1,000 mg PO TID #3 tab 04/17/18 [Last Taken Unknown] fluconazole 200 mg tablet See Rx Instructions .ROUTE .COMPLEX #5 tablet 04/21/18 [Last Taken Unknown] O2 See Dose Instructions .ROUTE .MEDSUPPLY #1 ea 05/12/18 [Last Taken Unknown] Portable O2 See Dose Instructions .ROUTE .MEDSUPPLY #1 ea 05/12/18 [Last Taken Unknown] Exam - Exam Vital Signs: Vital Signs - Last Taken Temp 36.3 C 05/12/18 12:32 Pulse 72 05/12/18 12:32 Resp 20 05/12/18 12:32 BP 120/67 05/12/18 12:32 Pulse Ox 96 05/12/18 12:32 Constitutional: Present: Alert, Oriented x3, Cooperative, Well developed, Well nourished, Elderly, Obese ENT Exam: Present: normal ENT inspection, hearing grossly normal, pharynx normal, TMs normal Eye Exam: bilateral eye: normal inspection, PERRL, EOMI Neck: Present: non-tender, full range of motion, supple, normal inspection Back Exam: Present: normal inspection, no CVA tenderness, no vertebral tenderness Respiratory: Present: chest non-tender, lungs clear, normal breath sounds Cardiovascular/Chest: Present: JVD - With positive hepatojugular reflex at 90, tachycardia Peripheral Pulses: carotid (R): 2+, carotid (L): 2+, radial (R): 2+, radial (L): 2+ Abdomen: Present: Normal bowel sounds, soft, nontender, nondistended, no rebound tenderness, no hepatospenomegaly, no masses, obese /Rectal: Present: Exam deferred Extremity: Present: normal range of motion, non-tender, normal inspection, no pedal edema, no calf tenderness, normal capillary refill Skin Exam: Present: pallor Lymphatic: Present: no adenopathy Neurologic: Present: director script II-XII nml as tested. Absent: normal cerebellar test Appearance: Present: no memory impairment, disheveled, impaired insight Eye contact: Present: cooperative, good eye contact. Absent: normal speech - Voice is very weak and her volume is low so that is very difficult to hear what she is saying. Thoughts: Present: normal thought pattern, no apparent hallucination Assessment/Plan - Narrative Narrative: 1. Marked dyspnea with minor exertion 2. Anemia 3. History of coronary artery disease 4. History of CVA 5. Weakness Michelle is a 67-year-old morbidly obese female who appears older than her stated years. She appears pale and weak and has significant dyspnea with minor exertion. Her hemoglobin is 7.1 g. The plan will be to type and crossmatch 2 units of packed red blood cells and to infuse when ready. She'll have the hemoglobin repeated 2 hours after. If her hemoglobin is not above 9 g then I will give a third unit of packed red cells. I'll continue most of her usual home medicines. She will be on a consistent carb diet. Well one dose of Toradol for her complaints of leg cramps but probably no blood transfusions will help more than anything. - Assessment/Plan (1) Anemia Problem: Acute Qualifiers: Anemia type: unspecified type Qualified Code(s): D64.9 - Anemia, unspecified (2) Cerebral vascular accident Problem: Acute (3) Type 2 diabetes mellitus Problem: Chronic Qualifiers: (4) BECK (dyspnea on exertion) Problem: Acute (5) Hypoxemia Problem: Acute (6) History of coronary artery disease Problem: Acute (7) History of stroke Problem: Resolved
[2018-05-12] MEDS: NYSTATIN 60 ML BTL PO SCH ×3 (14:00→20:44)
[2018-05-12] MEDS: valACYclovir HCL 500 MG TABLET PO SCH ×2 (14:00→18:06)
[2018-05-12] MEDS: GABAPENTIN 600 MG TABLET PO SCH ×2 (14:00→18:05)
[2018-05-12] MEDS: NITROFURANTOIN/NITROFURAN MAC 100 MG CAPSULE PO SCH (14:00)
[2018-05-12] MEDS ORDERED: KETOROLAC TROMETHAMINE 30 MG/ML VIAL ONE (14:27)
[2018-05-12] MEDS ORDERED: ALBUTEROL SULFATE 2.5 MG/0.5 ML VIAL.NEB IH SCH (19:00)
[2018-05-12] MEDS ORDERED: ALBUTEROL SULFATE 2.5 MG/0.5 ML VIAL.NEB IH PRN (20:27)
[2018-05-12] MEDS: APIXABAN 5 MG TABLET PO SCH (20:46)
[2018-05-12] MEDS: glipiZIDE 5 MG TABLET PO SCH (20:46)
[2018-05-12] MEDS: PANTOPRAZOLE SODIUM 20 MG TABLET.DR PO SCH (20:47)
[2018-05-12] MEDS: ATENOLOL 50 MG TABLET PO SCH (20:49)
[2018-05-12] MEDS ORDERED: traZODone HCL 150 MG TABLET PO SCH (21:00)
[2018-05-12] MEDS ORDERED: QUEtiapine FUMARATE 25 MG TABLET PO SCH (21:00)
[2018-05-12] MEDS ORDERED: ROSUVASTATIN CALCIUM 20 MG TABLET PO SCH (21:00)
[2018-05-12] MEDS ORDERED: [UNRECOGNIZED DRUG - OTHER] ophthalmic (eye) SCH (21:00)
[2018-05-12 23:52] LABS: Hematocrit 29.6 % (37.0-47.0); Hemoglobin 8.9 gm/dL (12.5-16.0)
[2018-05-13] MEDS: NITROFURANTOIN/NITROFURAN MAC 100 MG CAPSULE PO SCH (00:22)
[2018-05-13] MEDS ORDERED: LEVOTHYROXINE SODIUM 75 MCG TABLET PO SCH (07:00)
[2018-05-13] MEDS: PANTOPRAZOLE SODIUM 20 MG TABLET.DR PO SCH (07:44)
[2018-05-13 08:11] LABS: Iron 13 mcg/dL (35-120); Transferrin Sat. (% Sat.) 4 % (15-55)
[2018-05-13] MEDS: APIXABAN 5 MG TABLET PO SCH (09:00)
[2018-05-13] MEDS ORDERED: FENOFIBRATE,MICRONIZED 134 MG CAPSULE PO SCH (09:00)
[2018-05-13] MEDS ORDERED: amLODIPine BESYLATE 5 MG TABLET PO SCH (09:00)
[2018-05-13] MEDS ORDERED: CHOLECALCIFEROL 5,000 UNIT TABLET PO SCH (09:00)
[2018-05-13] MEDS: glipiZIDE 5 MG TABLET PO SCH (09:00)
[2018-05-13] MEDS ORDERED: MELOXICAM 15 MG TABLET PO SCH (09:00)
[2018-05-13] MEDS ORDERED: FLUCONAZOLE 200 MG TABLET PO SCH (09:00)
[2018-05-13] MEDS ORDERED: lamoTRIgine 100 MG TABLET PO SCH ×2 (09:00)
[2018-05-13] MEDS ORDERED: ASPIRIN 81 MG TABLET.DR PO SCH (09:00)
[2018-05-13] MEDS ORDERED: FUROSEMIDE 40 MG TABLET PO SCH (09:00)
[2018-05-13] MEDS ORDERED: VENLAFAXINE HCL 150 MG CAP.SR.24H PO SCH (09:00)
[2018-05-13] MEDS ORDERED: MAGNESIUM OXIDE 400 MG TABLET PO SCH (09:00)
[2018-05-13] MEDS ORDERED: FERROUS SULFATE 325 MG TABLET PO SCH (09:00)
[2018-05-13] MEDS ORDERED: AMIODARONE HCL 200 MG TABLET PO SCH (09:00)
[2018-05-13] MEDS: NYSTATIN 60 ML BTL PO SCH ×2 (09:02→12:03)
[2018-05-13] MEDS: GABAPENTIN 600 MG TABLET PO SCH ×2 (09:02→12:03)
[2018-05-13] MEDS: ATENOLOL 50 MG TABLET PO SCH (09:21)
[2018-05-13] MEDS: valACYclovir HCL 500 MG TABLET PO SCH (09:22)
--- NOTE | 2018-05-13 12:59 | DS ---
(1) Iron deficiency anemia Problem: Chronic Qualifiers: Iron deficiency anemia type: unspecified iron deficiency Qualified Code(s): D50.9 - Iron deficiency anemia, unspecified (2) Anemia Problem: Acute Qualifiers: Anemia type: iron deficiency Iron deficiency anemia type: other iron deficiency Qualified Code(s): D50.8 - Other iron deficiency anemias (3) Cerebral vascular accident Problem: Chronic Qualifiers: CVA mechanism: embolism Precerebral and cerebral artery: middle cerebral artery (4) Type 2 diabetes mellitus Problem: Chronic Qualifiers: Diabetes mellitus [facility] insulin use: without truck terminal manager use Diabetes mellitus complication status: without complication Qualified Code(s): E11.9 - Type 2 diabetes mellitus without complications (5) BECK (dyspnea on exertion) Problem: Acute (6) Hypoxemia Problem: Acute (7) History of coronary artery disease Problem: Chronic (8) History of stroke Problem: Resolved Description of Stay: Michelle Kearns is a 67 -year-old obese white female who was seen in the office yesterday because of marked dyspnea with minimal exertion. She has a history of coronary disease and a previous stroke. She noted that she would get short of breath just bending over in the chair to pick something up off of the table or footstool. She couldn't walk 5 feet without having to stop and rest and catch her breath. Her examination showed her to be very weak and I had a very weak voice is barely audible. She is in no respiratory distress. She was pale in color. The conjunctiva were pale and the palms of the hands did not david at the creases. She takes a great deal of medication. The cause of her acute shortness of breath was not known. I suspected anemia which was borne out with a hemoglobin of 7.1 g. Because she was symptomatic at that level I admitted her to observation status. She received 2 units of blood yesterday afternoon and evening and another unit of blood this morning once her hemoglobin was redone at 8.9 g. She has finished the third unit but the postinfusion H&H has not been repeated yet. She is able to walk much better this morning after the first 2 units of blood and is able to get to and from the bathroom without being short of breath. Her oxygen saturations have improved with the administration of blood as well. Nursing is not a great job in reconciling her long list of medications. There are many in the office meds that she was no longer taking. Therefore her discharge medication list will be accurate now. I did serum iron studies on the admission blood and it indeed does show low serum iron and ferritin. Her MCV is about 80 and her RDW is elevated. All of this is consistent with iron deficiency anemia for which she can no longer compensate. She'll be discharged on iron therapy. Procedures Performed: see notes below List Procedures: Packed red blood cells 3 units infused Results and Findings: Lab Pending Results 05/12/18 12:50: Blood Type A Positive, Antibody Screen Negative, Crossmatch See Detail 05/12/18 12:50: Iron 13 L, TIBC 351, Transferrin % Sat 4 L 05/12/18 22:31: Stool Occult Blood Negative 05/12/18 23:45: Hgb 8.9 L, Hct 29.6 L Discharge Location: Home Disposition: Home self-care Condition: Fair Face to Face Encounter completed per [facility] [address] Guidelines: No Discharge Activity: Activity as tolerated Discharge Diet: Consistent carbs Referrals: Man Cruz DO [Primary Care Provider] - Additional Patient Instructions (free text): See me in the office in 2 weeks. -Please make TCM appointment unless [facility] discharge. Thank you! Jenn @ ext:[phone]. Complete Home Medications List: Complete Home Medication List: Ferrous Sulfate 325 mg PO DAILY 06/12/17 Gabapentin 600 mg PO TID 06/12/17 Multivitamin [One Daily Multivitamin] 1 ea PO DAILY 06/12/17 Nitroglycerin [Nitrostat] 0.4 mg SL Q5MIN PRN 06/12/17 Potassium 99 mg PO DAILY 06/12/17 atenolol 50 mg tablet 50 mg PO BID #30 tab 08/28/17 amlodipine 5 mg tablet 5 mg PO DAILY #30 tab 08/29/17 Amiodarone HCl 200 mg PO DAILY 11/19/17 Atorvastatin Calcium 80 mg PO HS 11/19/17 LORazepam [Ativan] 1 mg PO TID PRN 11/19/17 Levothyroxine Sodium [Synthroid] 75 mcg PO DAILY 11/19/17 Omeprazole [Prilosec] 20 mg PO BID 11/19/17 zolpidem 10 mg tablet 15 mg PO HS PRN #30 tab 12/02/17 furosemide 40 mg tablet 40 mg PO DAILY #30 tab 02/19/18 cyclobenzaprine 10 mg tablet 10 mg PO TID PRN #90 tab 03/04/18 glipizide 5 mg tablet 5 mg PO BID #60 tab 03/04/18 meloxicam 15 mg tablet 15 mg PO DAILY #30 tab 03/04/18 promethazine 25 mg tablet 25 mg PO QID PRN #60 tab 03/04/18 quetiapine 50 mg tablet 50 mg PO HS #30 tab 04/10/18 venlafaxine ER 150 mg capsule,extended release 24 hr 150 mg PO DAILY #30 cap 04/14/18 Apixaban [Eliquis] 5 mg PO BID 05/12/18 Melatonin/Pyridoxine [Melatonin 5 mg Tablet] 10 mg PO HS 05/12/18 Amb Orders for Discharge: CBC Time Frame: 1 Month, Location: Laboratory Occult Blood Stool Time Frame: 2 Weeks, Location: Laboratory Reticulocyte Count Time Frame: 1 Month, Location: Laboratory PT Evaluation and Treatment* Time Frame: 6 Weeks, Facility: [facility], Location: Physical Therapy
[2018-05-13 14:10] LABS: Hematocrit 37.5 % (37.0-47.0); Hemoglobin 11.2 gm/dL (12.5-16.0)
[2018-05-13 14:29] VITALS: BP 127/65
== END 2018-05-13 14:50 | disposition home or self-care (01) ==
LOC: CCFAL → RAD 09:00 → MS 09:00
PROVIDERS: ADMIT Family Medicine; ATTEND Family Medicine
CPT/HCPCS: 36415; 36430; 71020; 71046; 80053; 82272; 83519; 83540; 83550; 83880; 85014; 85018; 85025; 86850; 86900; 93005; 96374; 96375; 97161; G0378; P9016

== ENCOUNTER 2018-10-03 12:07 | Observation (INO) ==
[2018-10-03 12:49] LABS: Hematocrit 35.8 % (37.0-47.0); Hemoglobin 11.8 gm/dL (12.5-16.0); Mean Corpuscular Hemoglobin 34.6 pg (27-31); Mean Platelet Volume 8.2 fl (8-12.5); Neutrophil # 3.9 K/mm3 (1.3-6.0); Neutrophil % 61.4 % (42-75.0); Platelet Count 156 K/mm3 (150-450); Red Blood Count 3.41 M/mm3 (4.2-5.4); Red Cell Distribution Width 14.1 % (11.5-14.0); White Blood Count 6.3 K/mm3 (4.0-10.5)
[2018-10-03 13:06] LABS: ALT 13 U/L (19-67); AST 13 U/L (0-48); Albumin * 3.5 gm/dl (3.4-5.0); Alkaline Phosphatase * 100 U/L (50-170); Anion Gap 9.6 mmol/L (6.8-13.8); BUN/Creatinine Ratio 19.5 (9.0-21.6); Bilirubin, Total 0.4 mg/dL (0.0-1.1); Blood Urea Nitrogen 24 mg/dL (3-23); Ca. Corrected For Albumin 8.6 mg/dL (8.4-10.2); Calcium * 8.5 mg/dL (7.9-10.9); Carbon Dioxide 25.4 mmol/L (24-32.6); Chloride 104 mmol/L (97-106); Glucose * 235 mg/dL (70-110); Sodium 135 mmol/L (132-142); Total Protein 6.1 gm/dL (6.2-8.2); Troponin I Less than 0.017 ng/mL (0.00-0.10)
[2018-10-03 14:17] LABS: Cocaine Ur Negative (NEGATIVE); Urine Barbiturate Negative (NEGATIVE); Urine Benzodiazepines Negative (NEGATIVE); Urine Opiates Negative (NEGATIVE); Urine PCP Negative (NEGATIVE); Urine THC Negative (NEGATIVE)
[2018-10-03 14:20] LABS: Urine Appearance Clear (CLEAR); Urine Bacteria None Seen; Urine Bilirubin Negative (NEGATIVE); Urine Blood Negative /ul (NEGATIVE); Urine Color Yellow; Urine Ketone Negative (NEGATIVE); Urine Nitrite Negative (NEGATIVE); Urine Protein Negative (NEGATIVE); Urine RBC None Seen /hpf (0-5); Urine Specific Gravity 1.025 SP.GR. (1.005-1.010); Urine Urobilinogen Normal (NORMAL); Urine WBC 0-5 /hpf (0-5); Urine pH 5.5 pH (5.0-7.0)
[2018-10-03] MEDS ORDERED: ALBUTEROL SULFATE 2.5 MG/0.5 ML VIAL.NEB IH ONE (14:51)
[2018-10-03] MEDS ORDERED: cefTRIAXone SODIUM 1,000 MG/100 ML BAG IV ONE (14:52)
[2018-10-03] MEDS ORDERED: ALBUTEROL SULFATE 2.5 MG/0.5 ML VIAL.NEB IH PRN (15:21)
--- NOTE | 2018-10-03 15:21 | ERNOTE ---
Medical Problem HPI - Narrative Date of Service: 10/03/18 - General Chief Complaint: General Assessment Time Seen by Provider: 10/03/18 12:20 Source: patient, family - Immun/Allergies/Home Medications Immunizations: IMMUNIZATION HX Immunizations Up to Date Yes History of Influenza Vaccine Yes Hx Pneumococcal Vaccination Yes Allergies/Adverse Reactions: Allergies lithium [[place]] Adverse Reaction (Mild, Verified 10/03/18 12:18) leg pain Home Medications: HOME MEDICATIONS Gabapentin 600 mg PO TID 06/12/17 [Last Taken Unknown] Multivitamin [One Daily Multivitamin] 1 ea PO DAILY 06/12/17 [Last Taken Unk nown] Nitroglycerin [Nitrostat] 0.4 mg SL Q5MIN PRN 06/12/17 [Last Taken Unknown] Potassium 99 mg PO DAILY 06/12/17 [Last Taken Unknown] atenolol 50 mg tablet 50 mg PO BID #30 tab 08/28/17 [Last Taken Unknown] Amiodarone HCl 200 mg PO DAILY 11/19/17 [Last Taken Unknown] glipizide 5 mg tablet 5 mg PO BID #60 tab 03/04/18 [Last Taken Unknown] meloxicam 15 mg tablet 15 mg PO DAILY #30 tab 03/04/18 [Last Taken Unknown] promethazine 25 mg tablet 25 mg PO QID PRN #60 tab 03/04/18 [Last Taken Unknown] venlafaxine ER 150 mg capsule,extended release 24 hr 150 mg PO DAILY #30 cap 04/14/18 [Last Taken Unknown] Melatonin/Pyridoxine [Melatonin 5 mg Tablet] 10 mg PO HS 05/12/18 [Last Taken Unknown] ferrous sulfate 324 mg (65 mg iron) tablet,delayed release 325 mg PO DAILY #30 tab 05/14/18 [Last Taken Unknown] amlodipine 5 mg tablet 5 mg PO DAILY #30 tab 05/18/18 [Last Taken Unknown] atorvastatin 40 mg tablet 80 mg PO HS #60 tab 07/24/18 [Last Taken Unknown] apixaban 5 mg tablet 5 mg PO BID #60 tab 08/03/18 [Last Taken Unknown] omeprazole 20 mg tablet,delayed release 20 mg PO BID #60 tab 08/03/18 [Last Taken Unknown] quetiapine 50 mg tablet 50 mg PO HS #30 tab 08/03/18 [Last Taken Unknown] Furosemide [Lasix] 80 mg PO DAILY 09/04/18 [Last Taken Unknown] Levothyroxine Sodium [Synthroid] 88 mcg PO DAILY 09/04/18 [Last Taken Unknown] levothyroxine 112 mcg tablet 112 mcg PO DAILY #45 tab 09/08/18 [Last Taken Unknown] lorazepam 1 mg tablet 1 mg PO BID PRN #60 tab 09/08/18 [Last Taken Unknown] zolpidem 10 mg tablet 15 mg PO HS PRN #45 tab 09/08/18 [Last Taken Unknown] cyclobenzaprine 10 mg tablet See Rx Instructions .ROUTE .COMPLEX #90 tablet 09/29/18 [Last Taken Unknown] - History of Present History Narrative: patient related she has had cough and sob for last several days, relates she has been mmildly confussed, but has been known to abuse otc meds, patient appears alert Timing: constant Severity: moderate Modifying Factors - (Improves): Present: rest Modifying Factors - (Worsens): Present: movement Review of Systems - Review of Systems Constitutional: Present: fever, chills, fatigue, malaise EYE: Present: no symptoms reported ENT: Present: no symptoms reported Respiratory: Present: See HPI, shortness of breath, cough, wheezing Cardiology: Present: no symptoms reported Gastrointestinal/Abdominal: Present: no symptoms reported Genitourinary: Present: no symptoms reported Musculoskeletal: Present: no symptoms reported Skin: Present: no symptoms reported Neurological: Present: other - mild confusiion Endocrine: Present: no symptoms reported Hematologic/Lymphatic: Present: no symptoms reported Psych: Present: no symptoms reported All Other Systems: All systems neg except as marked Medical History (Updated 09/28/18 @ 17:03 by Man Cruz DO) Type 2 diabetes mellitus (Chronic) Low back pain (Chronic) Axillary lymphadenopathy (Acute) Localized superficial swelling, mass, or lump (Acute) Macrocytosis without anemia (Chronic) SUE (generalized anxiety disorder) (Chronic) Insomnia (Chronic) Falls (Acute) Multiple contusions (Acute) Fatigue (Chronic) Iron deficiency (Chronic) Cataract cortical, senile (Chronic) External otitis of right ear (Acute) Oral candidiasis (Acute) Hyperesthesia (Acute) Fell and bumped the upper lip and has been overly sensitive since. Afib Atrial fibrillation CVA (cerebral vascular accident) Coronary artery disease Depression Diabetes type 2, controlled Hypertension Melanoma Removed from forehead Pneumonia Pneumonia Right clavicle fracture Stroke Toxic metabolic encephalopathy Type 2 diabetes mellitus Cardiac dysrhythmia Surgical History: Surgical History (Updated 05/13/18 @ 13:08 by Man Cruz DO) H/O bilateral hip replacements H/O coronary artery bypass surgery H/O tubal ligation History of back surgery History of cataract extraction with lens replacement Bilateral History of left hip replacement History of right hip replacement Status post double vessel coronary artery bypass bipap surgery Family History: Family History (Last Reviewed 09/28/18 @ 16:03 by Sho Gann LPN) Mother , @ 83 Heart disease Diabetes Father , Unknown age Parkinsons disease Mother Diabetes Father Parkinsons disease Social History: (Last Updated 09/28/18 @ 17:02 by Man Cruz DO) Social History: Marital status: household members: spouse, children number of children: 2 current occupational status: unemployed Service: No Tobacco: Smoking Status: Never smoker Alcohol: alcohol intake: current Substance Use: substance use type: does not use Dietary Habits: caffeine: Yes Physical Exam - Physical Exam General Appearance: Present: mild distress, anxious Head Exam: Present: normal inspection, no evidence of injury Eye Exam: Normal inspection: bilateral, PERRL: bilateral, EOMI: bilateral Ears, Nose, Throat: Present: normal ENT inspection, normal pharynx Neck: Present: normal inspection, nontender Respiratory: Present: crackles, rales, rhonchi Cardiovascular/Chest: Present: no murmur, normal peripheral pulses, irregularly irregular Gastrointestinal/Abdominal: Present: normal bowel sounds, nontender, nondistended, soft, no organomegaly Back Exam: Present: normal inspection, normal range of motion, no CVA tenderness, no vertebral tenderness Extremity Exam: Present: normal inspection, non-tender, normal range of motion, no edema Neurological Exam: Present: alert, oriented, normal mood/affect, no motor/sensory deficits Skin Exam: Present: normal color, warm/dry Lymphatic Exam: Present: no adenopathy Progress - Date and Time Seen: Date and Time: 10/03/18 15:18 condition unchanged, discussed results of lab and x-rays with patient, dr swenson contacted patient, admitted to observation with pneumonia - Results and Orders Patient's Lab Results:: I have reviewed the patient's lab results. - Vital Signs Patient's Vital Signs:: I have reviewed the patient's vital signs. Vital Signs: Vital Signs 10/03/18 12:15 10/03/18 12:47 10/03/18 13:25 Temperature 36.3 C Pulse Rate 80 89 81 Respiratory Rate 19 20 Blood Pressure 168/94 H 171/98 H O2 Sat by Pulse Oximetry 93 91 L 97 10/03/18 13:54 10/03/18 14:53 10/03/18 14:55 Temperature Pulse Rate 73 79 Respiratory Rate 20 18 Blood Pressure 156/97 H O2 Sat by Pulse Oximetry 90 L 97 97 - EKG EKG #1 EKG: atrial fibrillation - X-Ray X-Ray #1 X-Ray: chest Interpretation: Discd w/ radiologist - lowr right lobe pneumonia - CT/Ultrasound CT/Ultrasound Narrative: ct head no acute process - Progress/Reassessment Chief Complaint: General Assessment Progress:: Unchanged - Transfer of Care Expected Disposition: Admit Plan - Plan Plan: to admit to observation Departure Clinical Impression: Pneumonia - Departure Disposition: Short Term Hospital Inpatient Condition: Stable
[2018-10-03] MEDS ORDERED: ACETAMINOPHEN 325 MG TABLET PO PRN (19:36)
[2018-10-03] MEDS ORDERED: guaiFENesin 100 MG/5 ML SYRUP PO PRN (19:37)
[2018-10-03] MEDS ORDERED: NITROGLYCERIN 0.4 MG/TAB BTL SL PRN (19:37)
[2018-10-03] MEDS ORDERED: LORazepam 1 MG TABLET PO PRN (19:37)
[2018-10-03] MEDS ORDERED: PROMETHAZINE HCL 25 MG TABLET PO PRN (19:37)
[2018-10-03] MEDS ORDERED: CYCLOBENZAPRINE HCL 10 MG TABLET PO PRN (19:37)
--- NOTE | 2018-10-03 20:03 | HP ---
Chief Complaint - Chief Complaint Date of Service: 10/03/18 Time of Service: 19:55 Chief Complaint: I have been having shortness of breath, weakness, and cough over the past few days History of Present Illness: 68-year-old female with past medical history of atrial fibrillation, CAD, old CVA, morbid obesity, type 2 diabetes, general anxiety disorder, hypertension, insomnia, COPD, was evaluated in our ER due to worsening shortness of breath and persistent productive cough over the past several 2 weeks. Patient reports normally having shortness of breath when ambulating short distances, however over the past few days the symptom has been getting worse and she has not been feeling herself. Patient normally uses a nebulizer machine with breathing treatments of albuterol however her symptom has not been responding adequately and she felt the need to come to the ER for treatment when she was not improving. However she denies fever or chills but admits to feeling weak and excessively tired recently especially since becoming ill. Medical History (Updated 10/03/18 @ 20:03 by Felicia Schmidt MD) Type 2 diabetes mellitus (Chronic) Low back pain (Chronic) Axillary lymphadenopathy (Acute) Localized superficial swelling, mass, or lump (Acute) Macrocytosis without anemia (Chronic) SUE (generalized anxiety disorder) (Chronic) Insomnia (Chronic) Falls (Acute) Multiple contusions (Acute) Fatigue (Chronic) Iron deficiency (Chronic) Cataract cortical, senile (Chronic) External otitis of right ear (Acute) Oral candidiasis (Acute) Hyperesthesia (Acute) Fell and bumped the upper lip and has been overly sensitive since. Pneumonia Afib Atrial fibrillation CVA (cerebral vascular accident) Coronary artery disease Depression Diabetes type 2, controlled Hypertension Melanoma Removed from forehead Pneumonia Right clavicle fracture Stroke Toxic metabolic encephalopathy Type 2 diabetes mellitus Cardiac dysrhythmia Surgical History: Surgical History (Updated 05/13/18 @ 13:08 by Man Cruz DO) H/O bilateral hip replacements H/O coronary artery bypass surgery H/O tubal ligation History of back surgery History of cataract extraction with lens replacement Bilateral History of left hip replacement History of right hip replacement Status post double vessel coronary artery bypass bipap surgery Family History: Family History (Last Reviewed 10/03/18 @ 15:24 by Renan Mahoney RN) Mother , @ 83 Heart disease Diabetes Father , Unknown age Parkinsons disease Mother Diabetes Father Parkinsons disease Social History: (Last Reviewed 10/03/18 @ 16:12 by Desi Leal RN) Social History: Marital status: household members: spouse, children number of children: 2 current occupational status: unemployed, retired Highest education level completed: some college, no degree Service: No Tobacco: Smoking Status: Never smoker Alcohol: alcohol intake: current Alcohol type: hard liquor alcohol intake frequency: holiday/special occasion Substance Use: substance use type: does not use Dietary Habits: caffeine: Yes Type: carbonated beverages Peds Patient Hx - Developmental: No Pertinent Hx Peds Patient Hx - Medical: No Pertinent Hx Peds Patient Hx - Cardiac/Respiratory: No Pertinent Hx Peds Patient Hx - Surgical: No Surgical History Patient History - Cancer: No Hx of Cancer Review Of Systems (GEN) - Review of Systems Generalized/Overall Review: Present: Weakness EENTM: Present: No Symptoms Reported Respiratory: Present: Cough, Shortness of Breath Cardiac: Present: No Symptoms Reported Abdominal: Present: No Symptoms Reported Genitourinary: Present: No Symptoms Reported Musculoskeletal: Present: No Symptoms Reported Neurological: Present: No Symptoms Reported Skin: Present: No Symptoms Reported Endocrine: Present: No Symptoms Reported Immunizations: IMMUNIZATION HX Immunizations Up to Date Yes History of Influenza Vaccine Yes Hx Pneumococcal Vaccination Yes Allergies/Adverse Reactions: Allergies Allergy/AdvReac Type Severity Reaction Status Date / Time lithium [[place]] AdvReac Mild leg pain Verified 10/03/18 16:12 Home Medications: HOME MEDICATIONS Gabapentin 600 mg PO TID 06/12/17 [Last Taken Unknown] Multivitamin [One Daily Multivitamin] 1 ea PO DAILY 06/12/17 [Last Taken U nknown] Nitroglycerin [Nitrostat] 0.4 mg SL Q5MIN PRN 06/12/17 [Last Taken Unknown] Potassium 99 mg PO DAILY 06/12/17 [Last Taken Unknown] atenolol 50 mg tablet 50 mg PO BID #30 tab 08/28/17 [Last Taken Unknown] Amiodarone HCl 200 mg PO DAILY 11/19/17 [Last Taken Unknown] glipizide 5 mg tablet 5 mg PO BID #60 tab 03/04/18 [Last Taken Unknown] meloxicam 15 mg tablet 15 mg PO DAILY #30 tab 03/04/18 [Last Taken Unknown] promethazine 25 mg tablet 25 mg PO QID PRN #60 tab 03/04/18 [Last Taken Unknown] venlafaxine ER 150 mg capsule,extended release 24 hr 150 mg PO DAILY #30 cap 04/14/18 [Last Taken Unknown] Melatonin/Pyridoxine [Melatonin 5 mg Tablet] 10 mg PO HS 05/12/18 [Last Taken Unknown] ferrous sulfate 324 mg (65 mg iron) tablet,delayed release 325 mg PO DAILY #30 tab 05/14/18 [Last Taken Unknown] amlodipine 5 mg tablet 5 mg PO DAILY #30 tab 05/18/18 [Last Taken Unknown] atorvastatin 40 mg tablet 80 mg PO HS #60 tab 07/24/18 [Last Taken Unknown] apixaban 5 mg tablet 5 mg PO BID #60 tab 08/03/18 [Last Taken Unknown] omeprazole 20 mg tablet,delayed release 20 mg PO BID #60 tab 08/03/18 [Last Taken Unknown] quetiapine 50 mg tablet 50 mg PO HS #30 tab 08/03/18 [Last Taken Unknown] Furosemide [Lasix] 80 mg PO DAILY 09/04/18 [Last Taken Unknown] Levothyroxine Sodium [Synthroid] 88 mcg PO DAILY 09/04/18 [Last Taken Unknown] levothyroxine 112 mcg tablet 112 mcg PO DAILY #45 tab 09/08/18 [Last Taken Unknown] lorazepam 1 mg tablet 1 mg PO BID PRN #60 tab 09/08/18 [Last Taken Unknown] zolpidem 10 mg tablet 15 mg PO HS PRN #45 tab 09/08/18 [Last Taken Unknown] Cyclobenzaprine HCl 10 mg PO TID PRN 10/03/18 [Last Taken Unknown] Exam - Exam Vital Signs: Vital Signs - Last Taken Temp 36.7 C 10/03/18 18:55 Pulse 88 10/03/18 18:55 Resp 16 10/03/18 18:55 BP 144/99 H 10/03/18 18:55 Pulse Ox 95 10/03/18 18:55 Constitutional: Present: Alert, Oriented x3, Cooperative, Well developed, Well nourished, No distress, Elderly, Morbidly obese ENT Exam: Present: normal ENT inspection, hearing grossly normal, pharynx normal, TMs normal Eye Exam: bilateral eye: normal inspection, PERRL, EOMI Neck: Present: non-tender, full range of motion, supple, normal inspection, trachea midline Back Exam: Present: normal inspection, no CVA tenderness, no vertebral tenderness Breasts: Present: Exam deferred Respiratory: Present: crackles - Crackles heard at right lung base Cardiovascular/Chest: Present: normal peripheral pulses, no chest tenderness, no edema, no gallop, no JVD, no murmur, irregularly irregular Peripheral Pulses: carotid (R): 3+, carotid (L): 3+, femoral (R): 3+, femoral (L): 3+, dorsalis-pedis (R): 3+, dorsalis-pedis (L): 3+ Abdomen: Present: Normal bowel sounds, soft, nontender, nondistended, no rebound tenderness, no hepatospenomegaly, no masses, obese /Rectal: Present: Exam deferred Extremity: Present: normal range of motion, non-tender, normal inspection, no pedal edema, no calf tenderness, normal capillary refill, pelvis stable Skin Exam: Present: normal color, warm/dry, no cyanosis Lymphatic: Present: no adenopathy Neurologic: Present: goat driver II-XII nml as tested, normal cerebellar test, no isaias r/sensory deficits, alert, normal mood/affect, oriented x 3 Appearance: Present: appropriate appearance, appropriate insight, neat, no memory impairment Eye contact: Present: cooperative, good eye contact, normal speech Thoughts: Present: normal thought pattern, no apparent hallucination Diagnostic Studies: Abnormal Lab Results 10/03/18 10/03/18 10/03/18 Range/Units 12:43 12:43 12:43 RBC 3.41 L (4.2-5.4) M/mm3 Hgb 11.8 L (12.5-16.0) gm/dL Hct 35.8 L (37.0-47.0) % MCV 105.0 H (78-100) fl MCH 34.6 H (27-31) pg RDW 14.1 H (11.5-14.0) % Eosinophils % 5.1 H (0.0-3.0) % Basophils % 1.1 H (0.0-1.0) % pO2 (83.0-108.0) mmHg HCO3 (21.0-28.0) mmol/L Base Excess (-2.0-3.0) mmol/L ABG O2 Sat (Measured) (94.0-98.0) % BUN 24 H (3-23) mg/dL Est GFR (Non-Af Amer) 46 L (60-130) mL/min Random Glucose 235 H (70-110) mg/dL ALT 13 L (19-67) U/L B-Natriuretic Peptide 1351 H (5-325) pg/mL Total Protein 6.1 L (6.2-8.2) gm/dL Urine Glucose (UA) (NEGATIVE) mg/dL 10/03/18 10/03/18 Range/Units 13:28 13:40 RBC (4.2-5.4) M/mm3 Hgb (12.5-16.0) gm/dL Hct (37.0-47.0) % MCV (78-100) fl MCH (27-31) pg RDW (11.5-14.0) % Eosinophils % (0.0-3.0) % Basophils % (0.0-1.0) % pO2 66.3 L (83.0-108.0) mmHg HCO3 20.9 L (21.0-28.0) mmol/L Base Excess -3.5 L (-2.0-3.0) mmol/L ABG O2 Sat (Measured) 93.2 L (94.0-98.0) % BUN (3-23) mg/dL Est GFR (Non-Af Amer) (60-130) mL/min Random Glucose (70-110) mg/dL ALT (19-67) U/L B-Natriuretic Peptide (5-325) pg/mL Total Protein (6.2-8.2) gm/dL Urine Glucose (UA) 100 H (NEGATIVE) mg/dL Laboratory Results WBC 6.3 K/mm3 (4.0-10.5) 10/03/18 12:43 RBC 3.41 M/mm3 (4.2-5.4) L 10/03/18 12:43 Hgb 11.8 gm/dL (12.5-16.0) L 10/03/18 12:43 Hct 35.8 % (37.0-47.0) L 10/03/18 12:43 MCV 105.0 fl (78-100) H 10/03/18 12:43 MCH 34.6 pg (27-31) H 10/03/18 12:43 MCHC 33.0 g/dl (32-36) 10/03/18 12:43 RDW 14.1 % (11.5-14.0) H 10/03/18 12:43 Plt Count 156 K/mm3 (150-450) 10/03/18 12:43 MPV 8.2 fl (8-12.5) 10/03/18 12:43 Immature Gran % (Auto) 0.30 % (0.001-0.429) 10/03/18 12:43 Immature Gran # (Auto) 0.02 K/mm3 (0.000-0.0310) 10/03/18 12:43 61.4 % (42-75.0) 10/03/18 12:43 24.3 % (20-51) 10/03/18 12:43 7.8 % (0.0-9) 10/03/18 12:43 5.1 % (0.0-3.0) H 10/03/18 12:43 1.1 % (0.0-1.0) H 10/03/18 12:43 Nucleated RBC % 0.0 k/mm3 (0-1) 10/03/18 12:43 3.9 K/mm3 (1.3-6.0) 10/03/18 12:43 1.53 k/mm3 (1.5-3.5) 10/03/18 12:43 0.5 k/mm3 (0.0-1.0) 10/03/18 12:43 0.3 k/mm3 (0.0-0.7) 10/03/18 12:43 Absolute Basophils 0.1 k/mm3 (0.0-0.1) 10/03/18 12:43 pCO2 35.1 mmHg (32.0-45.0) 10/03/18 13:28 pO2 66.3 mmHg (83.0-108.0) L 10/03/18 13:28 HCO3 20.9 mmol/L (21.0-28.0) L 10/03/18 13:28 Total CO2 21.9 mmol/L (19.0-24.0) 10/03/18 13:28 Base Excess -3.5 mmol/L (-2.0-3.0) L 10/03/18 13:28 ABG pH 7.39 (7.35-7.45) 10/03/18 13:28 ABG O2 Sat (Measured) 93.2 % (94.0-98.0) L 10/03/18 13:28 Sodium 135 mmol/L (132-142) 10/03/18 12:43 137 mmol/L (130-142) 10/03/18 12:43 Potassium 4.0 mmol/L (3.4-4.6) 10/03/18 12:43 Chloride 104 mmol/L (97-106) 10/03/18 12:43 Carbon Dioxide 25.4 mmol/L (24-32.6) 10/03/18 12:43 9.6 mmol/L (6.8-13.8) 10/03/18 12:43 BUN 24 mg/dL (3-23) H 10/03/18 12:43 1.23 mg/dL (0.4-1.4) 10/03/18 12:43 Est GFR (Non-Af Amer) 46 mL/min (60-130) L 10/03/18 12:43 19.5 (9.0-21.6) 10/03/18 12:43 235 mg/dL (70-110) H 10/03/18 12:43 Calcium 8.5 mg/dL (7.9-10.9) 10/03/18 12:43 Calcium Adj for Albumin 8.6 mg/dL (8.4-10.2) 10/03/18 12:43 0.4 mg/dL (0.0-1.1) 10/03/18 12:43 AST 13 U/L (0-48) 10/03/18 12:43 ALT 13 U/L (19-67) L 10/03/18 12:43 100 U/L (50-170) 10/03/18 12:43 Less than 0.017 ng/mL (0.00-0.10) 10/03/18 12:43 B-Natriuretic Peptide 1351 pg/mL (5-325) H 10/03/18 12:43 6.1 gm/dL (6.2-8.2) L 10/03/18 12:43 3.5 gm/dl (3.4-5.0) 10/03/18 12:43 Yellow 10/03/18 13:40 Clear (CLEAR) 10/03/18 13:40 5.5 pH (5.0-7.0) 10/03/18 13:40 Ur Specific [place] 1.025 SP.GR. (1.005-1.010) 10/03/18 13:40 Negative mg/dL (NEGATIVE) 10/03/18 13:40 100 mg/dL (NEGATIVE) H 10/03/18 13:40 Negative mg/dL (NEGATIVE) 10/03/18 13:40 Negative /ul (NEGATIVE) 10/03/18 13:40 Negative (NEGATIVE) 10/03/18 13:40 Negative mg/dl (NEGATIVE) 10/03/18 13:40 Normal EU/dl (NORMAL) 10/03/18 13:40 Ur Leukocyte Esterase Negative /ul (NEGATIVE) 10/03/18 13:40 None seen /hpf (0-5) 10/03/18 13:40 0-5 /hpf (0-5) 10/03/18 13:40 Ur Epithelial Cells 0-5 /hpf (0-5) 10/03/18 13:40 None seen (NONE) 10/03/18 13:40 No culture indicated 10/03/18 13:40 Negative (NEGATIVE) 10/03/18 13:40 Negative (NEGATIVE) 10/03/18 13:40 Ur Phencyclidine Scrn Negative (NEGATIVE) 10/03/18 13:40 Urine Amphetamine Negative (NEGATIVE) 10/03/18 13:40 U Benzodiazepines Scrn Negative (NEGATIVE) 10/03/18 13:40 Negative (NEGATIVE) 10/03/18 13:40 Negative (NEGATIVE) 10/03/18 13:40 Assessment/Plan - Narrative Narrative: Patient was evaluated and medical chart was reviewed and decision to admit to [facility] for observation with a diagnosis of right lower lobe pneumonia was made. Chest x-ray demonstrated infiltrates in the right perihilar and right lower lobe and patient's saturation decreased while in the ER requiring her to be placed on oxygen by nasal cannula. Since then her breathing has improved specifically after she was treated with albuterol breathing treatment while in the ER. Given the patient's presentation we will treat her with IV antibiotics to cover for right lower lobe pneumonia and we will keep her on a beef splitter to watch her vitals as well as her heart rhythm closely. Patient was found to have an elevated BNP on labs, however the clinical picture or the chest x-ray does not demonstrate fluid overload or pulmonary edema, however in the meantime she will be administered all of her routine medications including her daily furosemide for adequate diuresis to avoid fluid overload. We will reevaluate her in the morning. - Assessment/Plan (1) Right lower lobe pneumonia Problem: Acute (2) Diabetes 1.5, managed as type 2 Problem: Chronic (3) HTN (hypertension) Problem: Chronic (4) COPD (chronic obstructive pulmonary disease) Problem: Chronic Qualifiers: COPD type: COPD with acute lower respiratory infection Qualified Code(s): J44.0 - Chronic obstructive pulmonary disease with acute lower respiratory infection (5) Atrial fibrillation Problem: Acute (6) CKD (chronic kidney disease) stage 3, GFR 30-59 ml/min Problem: Chronic
[2018-10-03] MEDS ORDERED: QUEtiapine FUMARATE 25 MG TABLET PO SCH (21:00)
[2018-10-03] MEDS ORDERED: glipiZIDE 5 MG TABLET PO SCH (21:00)
[2018-10-03] MEDS ORDERED: ZOLPIDEM TARTRATE 10 MG TABLET PO PRN (21:00)
[2018-10-03] MEDS ORDERED: ROSUVASTATIN CALCIUM 10 MG TABLET ONE (21:03)
[2018-10-03] MEDS ORDERED: MELATONIN 3,000 MCG TABLET PO SCH (22:30)
[2018-10-03] MEDS: ROSUVASTATIN CALCIUM 20 MG TABLET PO SCH ×2 (22:33→22:34)
[2018-10-03] MEDS: MULTIVITAMINS 1 CAP CAPSULE PO SCH (22:34)
[2018-10-03] MEDS: INSULIN REGULAR, HUMAN 100 UNITS/ML VIAL SC SCH (22:35)
[2018-10-03] MEDS: APIXABAN 5 MG TABLET PO SCH (22:35)
[2018-10-03] MEDS: FAMOTIDINE 20 MG TABLET PO SCH (22:36)
[2018-10-03] MEDS: ATENOLOL 50 MG TABLET PO SCH (22:36)
[2018-10-03] MEDS ORDERED: PHENOL 180 SPRAY BTL MM PRN (22:50)
[2018-10-04] MEDS ORDERED: LEVOTHYROXINE SODIUM 112 MCG TABLET PO SCH (06:00)
[2018-10-04] MEDS ORDERED: LEVOTHYROXINE SODIUM 88 MCG TABLET PO SCH (06:00)
[2018-10-04] MEDS ORDERED: PANTOPRAZOLE SODIUM 20 MG TABLET.DR PO SCH (07:00)
[2018-10-04] MEDS: INSULIN REGULAR, HUMAN 100 UNITS/ML VIAL SC SCH ×2 (07:32→11:49)
[2018-10-04] MEDS ORDERED: glipiZIDE 5 MG TABLET PO SCH (08:00)
[2018-10-04] MEDS ORDERED: FERROUS SULFATE 325 MG TABLET PO SCH (09:00)
[2018-10-04] MEDS ORDERED: MELOXICAM 15 MG TABLET PO SCH (09:00)
[2018-10-04] MEDS ORDERED: POTASSIUM CHLORIDE 10 MEQ TABLET.SA PO SCH (09:00)
[2018-10-04] MEDS ORDERED: amLODIPine BESYLATE 5 MG TABLET PO SCH (09:00)
[2018-10-04] MEDS ORDERED: VENLAFAXINE HCL 150 MG CAP.SR.24H PO SCH (09:00)
[2018-10-04] MEDS ORDERED: FUROSEMIDE 80 MG TABLET PO SCH (09:00)
[2018-10-04] MEDS ORDERED: AMIODARONE HCL 200 MG TABLET PO SCH (09:00)
[2018-10-04] MEDS ORDERED: DOCUSATE SODIUM 100 MG CAPSULE PO SCH (09:00)
[2018-10-04] MEDS: MULTIVITAMINS 1 CAP CAPSULE PO SCH (09:49)
[2018-10-04] MEDS: GABAPENTIN 600 MG TABLET PO SCH ×2 (09:50→15:13)
[2018-10-04] MEDS: FAMOTIDINE 20 MG TABLET PO SCH (09:50)
[2018-10-04] MEDS: APIXABAN 5 MG TABLET PO SCH (09:50)
[2018-10-04] MEDS: ATENOLOL 50 MG TABLET PO SCH (09:50)
--- NOTE | 2018-10-04 14:47 | DS ---
(1) Right lower lobe pneumonia Problem: Acute (2) Diabetes 1.5, managed as type 2 Problem: Chronic (3) HTN (hypertension) Problem: Chronic (4) COPD (chronic obstructive pulmonary disease) Problem: Chronic Qualifiers: COPD type: COPD with acute lower respiratory infection Qualified Code(s): J44.0 - Chronic obstructive pulmonary disease with acute lower respiratory infection (5) Atrial fibrillation Problem: Acute (6) CKD (chronic kidney disease) stage 3, GFR 30-59 ml/min Problem: Chronic Description of Stay: 68-year-old female admitted for suspected right lower lobe community- acquired pneumonia was evaluated at bedside and was found to be afebrile and in no acute distress. Patient has shown clinical improvement since arriving to the floor, her breathing has improved and she is saturating within normal levels at room air. She denies any recurrence of shortness of breath and her cough has resolved. There has not been any recurrence of fever or chills. Therefore given these findings patient has agreed to be discharged home with additional days of p.o. antibiotics and she will follow-up with her PCP in a few days. In the meantime she was instructed to be compliant with her at home breathing treatments by nebulizer. Procedures Performed: none Results and Findings: Lab Pending Results 10/03/18 12:43: WBC 6.3, RBC 3.41 L, Hgb 11.8 L, Hct 35.8 L, MCV 105.0 H, MCH 34.6 H, MCHC 33.0, RDW 14.1 H, Plt Count 156, MPV 8.2, Immature Gran % (Auto) 0.30, Immature Gran # (Auto) 0.02, Neutrophils % 61.4, Lymphocytes % 24.3, Monocytes % 7.8, Eosinophils % 5.1 H, Basophils % 1.1 H, Nucleated RBC % 0.0, Neutrophils # 3.9, Lymphocytes # 1.53, Monocytes # 0.5, Eosinophils # 0.3, Absolute Basophils 0.1 10/03/18 12:43: Sodium 135, Plasma Sodium 137, Potassium 4.0, Chloride 104, Carbon Dioxide 25.4, Anion Gap 9.6, BUN 24 H, Creatinine 1.23, Est GFR (Non-Af Amer) 46 L, BUN/Creatinine Ratio 19.5, Random Glucose 235 H, Calcium 8.5, Calcium Adj for Albumin 8.6, Total Bilirubin 0.4, AST 13, ALT 13 L, Alkaline Phosphatase 100, Troponin I Less than 0.017, Total Protein 6.1 L, Albumin 3.5 10/03/18 12:43: B-Natriuretic Peptide 1351 H 10/03/18 13:28: pCO2 35.1, pO2 66.3 L, HCO3 20.9 L, Total CO2 21.9, Base Excess -3.5 L, ABG pH 7.39, ABG O2 Sat (Measured) 93.2 L 10/03/18 13:40: Urine Opiates Screen Negative, Barbiturate Screen Negative, Ur Phencyclidine Scrn Negative, Urine Amphetamine Negative, U Benzodiazepines Scrn Negative, Urine Cocaine Screen Negative, Urine Marijuana (THC) Negative 10/03/18 13:40: Urine Color Yellow, Urine Appearance Clear, Urine pH 5.5, Ur Specific [place] 1.025, Urine Protein Negative, Urine Glucose (UA) 100 H, Urine Ketones Negative, Urine Blood Negative, Urine Nitrate Negative, Urine Bilirubin Negative, Urine Urobilinogen Normal, Ur Leukocyte Esterase Negative, Urine RBC None seen, Urine WBC 0-5, Ur Epithelial Cells 0-5, Urine Bacteria None seen, Urine Culture Comments No culture indicated Discharge Location: Home Disposition: Home self-care Condition: Stable Face to Face Encounter completed per [facility] Guidelines: No Discharge Activity: Activity as tolerated Discharge Diet: General/regular food Referrals: Man Cruz DO [Primary Care Provider] - Prescriptions (Any new or edited meds): Doxycycline Hyclate [Vibratab] 100 mg PO Q12H 5 Days #10 tab Complete Home Medications List: Complete Home Medication List: Gabapentin 600 mg PO TID 06/12/17 Multivitamin [One Daily Multivitamin] 1 ea PO DAILY 06/12/17 Nitroglycerin [Nitrostat] 0.4 mg SL Q5MIN PRN 06/12/17 Potassium 99 mg PO DAILY 06/12/17 atenolol 50 mg tablet 50 mg PO BID #30 tab 08/28/17 Amiodarone HCl 200 mg PO DAILY 11/19/17 glipizide 5 mg tablet 5 mg PO BID #60 tab 03/04/18 meloxicam 15 mg tablet 15 mg PO DAILY #30 tab 03/04/18 promethazine 25 mg tablet 25 mg PO QID PRN #60 tab 03/04/18 venlafaxine ER 150 mg capsule,extended release 24 hr 150 mg PO DAILY #30 cap 04/14/18 Melatonin/Pyridoxine [Melatonin 5 mg Tablet] 10 mg PO HS 05/12/18 ferrous sulfate 324 mg (65 mg iron) tablet,delayed release 325 mg PO DAILY #30 tab 05/14/18 amlodipine 5 mg tablet 5 mg PO DAILY #30 tab 05/18/18 atorvastatin 40 mg tablet 80 mg PO HS #60 tab 07/24/18 apixaban 5 mg tablet 5 mg PO BID #60 tab 08/03/18 omeprazole 20 mg tablet,delayed release 20 mg PO BID #60 tab 08/03/18 quetiapine 50 mg tablet 50 mg PO HS #30 tab 08/03/18 Furosemide [Lasix] 80 mg PO DAILY 09/04/18 levothyroxine 112 mcg tablet 112 mcg PO DAILY #45 tab 09/08/18 lorazepam 1 mg tablet 1 mg PO BID PRN #60 tab 09/08/18 zolpidem 10 mg tablet 15 mg PO HS PRN #45 tab 09/08/18 Cyclobenzaprine HCl 10 mg PO TID PRN 10/03/18 Doxycycline Hyclate [Vibratab] 100 mg PO Q12H 5 Days #10 tab 10/04/18
[2018-10-04 16:02] VITALS: BP 121/78
== END 2018-10-04 16:31 | disposition home or self-care (01) ==
LOC: MS 12:07 → ER 12:07 → MS 15:50
PROVIDERS: ADMIT Family Medicine; ATTEND Family Medicine
DX: N18.3 Chronic kidney disease, stage 3 (moderate); I48.91 Unspecified atrial fibrillation; J44.0 Chronic obstructive pulmonary disease with (acute) lower respiratory infection; I12.9 Hypertensive chronic kidney disease with stage 1 through stage 4 chronic kidney disease, or unspecified chronic kidney disease; E11.22 Type 2 diabetes mellitus with diabetic chronic kidney disease; J18.1 Lobar pneumonia, unspecified organism
CPT/HCPCS: 36415; 36600; 70450; 71020; 71046; 80053; 80307; 81001; 82803; 83519; 83880; 84484; 85025; 93005; 94640; 94664; 96365; 96366; 96372; 99284; G0378

== ENCOUNTER 2019-01-03 09:22 | Observation (INO) ==
--- NOTE | 2019-01-03 09:30 | PN ---
Progess Note - Interim Date: 01/03/19 Time: 09:30
[2019-01-03 09:53] LABS: Hematocrit 30.9 % (37.0-47.0); Mean Corpuscular Hgb Conc 32.4 g/dl (32-36); Mean Platelet Volume 8.5 fl (8-12.5); Neutrophil # 4.3 K/mm3 (1.3-6.0); Neutrophil % 75.2 % (42-75.0); Platelet Count 148 K/mm3 (150-450); Red Blood Count 3.03 M/mm3 (4.2-5.4); Red Cell Distribution Width 13.5 % (11.5-14.0); White Blood Count 5.8 K/mm3 (4.0-10.5)
[2019-01-03 10:02] LABS: Prothrombin Time (Patient) 11.6 Seconds (9.1-10.7)
--- NOTE | 2019-01-03 10:02 | ERNOTE ---
Neuro HPI ER Record Date of Service: 01/03/19 Presenting Symptoms: other - sleepy Time Seen by Provider: 01/03/19 09:31 Source: patient, past records Exam Limitations: no limitations Immunizations: IMMUNIZATION HX Immunizations Up to Date Yes History of Influenza Vaccine Yes Hx Pneumococcal Vaccination Yes Allergies/Adverse Reactions: Allergies Allergy/AdvReac Type Severity Reaction Status Date / Time lithium [[place]] AdvReac Mild leg pain Verified 01/01/19 08:22 Home Medications: HOME MEDICATIONS Acetaminophen [Tylenol] 1,000 mg PO Q6H PRN tab 01/04/19 [Last Taken Unknown] Albuterol Sulfate [Albuterol Sulfate Hfa] 2 puff INHALATION Q4H PRN 01/04/19 [Last Taken Unknown] Amiodarone HCl 200 mg PO DAILY 01/04/19 [Last Taken Unknown] Amlodipine Besylate 5 mg PO DAILY 01/04/19 [Last Taken Unknown] Apixaban [Eliquis] 5 mg PO BID 01/04/19 [Last Taken Unknown] Atenolol [Tenormin] 50 mg PO BID 01/04/19 [Last Taken Unknown] Atorvastatin Calcium 80 mg PO HS 01/04/19 [Last Taken Unknown] Cyclobenzaprine HCl 10 mg PO TID 01/04/19 [Last Taken Unknown] Ferrous Sulfate [Iron] 325 mg PO DAILY 01/04/19 [Last Taken Unknown] Furosemide [Lasix] 80 mg PO DAILY 01/04/19 [Last Taken Unknown] Gabapentin [Neurontin] 600 mg PO TID 01/04/19 [Last Taken Unknown] LORazepam [Ativan] 1 mg PO TID PRN 01/04/19 [Last Taken Unknown] Levothyroxine Sodium [Unithroid] 137 mcg PO DAILY 01/04/19 [Last Taken Unknown] Lidocaine HCl [Lidocaine HCl Viscous 2%] 1 appl MM QID PRN 01/04/19 [Last Taken Unknown] Melatonin 10 mg PO HS 01/04/19 [Last Taken Unknown] Meloxicam [Mobic] 15 mg PO DAILY 01/04/19 [Last Taken Unknown] Metoprolol Tartrate [Lopressor] 25 mg PO BID 01/04/19 [Last Taken Unknown] Multivitamin [One Daily Multivitamin] 1 ea PO DAILY 01/04/19 [Last Taken Unknown] Nitroglycerin [Nitrostat] 0.4 mg SUBLINGUAL Q5MIN PRN 01/04/19 [Last Taken Unknown] Omeprazole [Prilosec] 20 mg PO BID 01/04/19 [Last Taken Unknown] Potassium 99 mg PO DAILY 01/04/19 [Last Taken Unknown] Promethazine HCl [Phenergan (Promethazine)] 25 mg PO QID PRN 01/04/19 [Last Taken Unknown] QUEtiapine FUMARATE [Seroquel] 100 mg PO HS 01/04/19 [Last Taken Unknown] Venlafaxine HCl [Venlafaxine HCl ER] 150 mg PO DAILY 01/04/19 [Last Taken Unknown] Zolpidem Tartrate [Ambien] 15 mg PO HS PRN 01/04/19 [Last Taken Unknown] glipiZIDE [Glipizide] 5 mg PO BID 01/04/19 [Last Taken Unknown] traMADol HCL [Tramadol HCl] 50 mg PO QID PRN 01/04/19 [Last Taken Unknown] - History of Present Illness Narrative: 68yof presents via EMS for concerns of AMS/lethargy. Pt reports she has had difficulty sleeping in the past. She recently started taking a new sleeping medication a few days ago. She is sleeping through the night however she is excessively tired this morning and is having difficulty keeping her eyes open. She denies pain and states this had been the only recent medication change recently. She denies drug use. She denies fevers or chills. No recent urinary symptoms. Date (Duration): 01/03/19 Time (Timing): 09:25 Onset: gradual onset Severity: moderate - Character of Deficits Additional Deficits: Absent: vision problems Baseline Cognition: Present: alert, oriented x 4 Associated Symptoms: Denies: fever/chills, sweating, chest pain, neck/back pain, headache, fainting, seizure Prior Treament: Reports: treated by physician, similar symptoms before Review of Systems - Review of Systems Constitutional: Present: decreased activity level EYE: Present: no symptoms reported ENT: Present: no symptoms reported Respiratory: Present: no symptoms reported Cardiology: Present: no symptoms reported Gastrointestinal/Abdominal: Present: no symptoms reported Genitourinary: Present: no symptoms reported Musculoskeletal: Present: no symptoms reported Skin: Present: no symptoms reported Neurological: Absent: headache, seizure Psych: Absent: depressed Medical History (Last Reviewed 01/07/19 @ 17:36 by Frederic Mohamud MD) Type 2 diabetes mellitus (Chronic) Glossitis (Acute) Gingivostomatitis (Acute) Dementia (Chronic) Low back pain (Chronic) Axillary lymphadenopathy (Acute) Localized superficial swelling, mass, or lump (Acute) Macrocytosis without anemia (Chronic) SUE (generalized anxiety disorder) (Chronic) Insomnia (Chronic) Falls (Acute) Multiple contusions (Acute) Fatigue (Chronic) Iron deficiency (Chronic) Cataract cortical, senile (Chronic) External otitis of right ear (Acute) Oral candidiasis (Acute) Hyperesthesia (Acute) Fell and bumped the upper lip and has been overly sensitive since. Afib Atrial fibrillation CVA (cerebral vascular accident) Coronary artery disease Depression Diabetes type 2, controlled Hypertension Melanoma Removed from forehead Pneumonia Pneumonia Right clavicle fracture Stroke Toxic metabolic encephalopathy Type 2 diabetes mellitus Cardiac dysrhythmia Surgical History: Surgical History (Last Reviewed 01/07/19 @ 17:37 by Frederic Mohamud MD) H/O bilateral hip replacements H/O coronary artery bypass surgery H/O tubal ligation History of back surgery History of cataract extraction with lens replacement Bilateral History of left hip replacement History of right hip replacement Status post double vessel coronary artery bypass bipap surgery Family History: Family History (Last Reviewed 01/03/19 @ 14:42 by Danielle Kim RN) Mother , @ 83 Heart disease Diabetes Father , Unknown age Parkinsons disease Mother Diabetes Father Parkinsons disease Social History: (Last Reviewed 01/03/19 @ 14:42 by Danielle Kim RN) Social History: Marital status: household members: spouse, children number of children: 2 current occupational status: unemployed, retired Highest education level completed: some college, no degree Service: No Tobacco: Smoking Status: Never smoker Alcohol: alcohol intake: current Alcohol type: hard liquor alcohol intake frequency: holiday/special occasion Substance Use: substance use type: does not use Dietary Habits: caffeine: Yes Type: carbonated beverages Physical Exam - Physical Exam General Appearance: Present: sleeping/easy to arouse Head Exam: Present: normal inspection, no evidence of injury Eye Exam: PERRL: bilateral, EOMI: bilateral Ears, Nose, Throat: Present: normal ENT inspection Neck: Present: normal inspection Respiratory: Present: no respiratory distress Cardiovascular/Chest: Present: regular rate, rhythm, no murmur, normal peripheral pulses Gastrointestinal/Abdominal: Present: normal bowel sounds, nontender Extremity Exam: Present: normal inspection, non-tender Neurological Exam: Present: oriented Skin Exam: Present: normal color, warm/dry [place] Coma Scale - Assess Eye Opening: To Voice Motor: Obeys Commands Verbal: Oriented - Total Coma Scale Total: 14 Initial Stroke Assessment - Date/Time of assessment Stroke Scale Date: 01/03/19 - NIH Stroke Scale Level of Consciousness: Alert LOC Questions (Year and Age): Answers both correctly LOC Commands (open/close eyes/fist): Performs both correctly Lateral Gaze Paresis: None Visual Field Loss: No visual loss Facial Palsy: Normal movement Right Arm Motor (10 sec hold): No drift Left Arm Motor (10 sec hold): No drift Right Leg Motor (5 sec hold): No drift Left Leg Motor (5 sec hold): No drift Limb Ataxia (finger/nose heel/back): Absent Sensory Loss (pinprick arms/legs/face): No sensory loss Language Aphasia (description/naming/reading): No aphasia; normal Dysarthria (speech clarity): Slurring, intelligeble Neglect Inattention (visual/tactile/auditory/spatial/person): No neglect - Patient reports her dysarthria is from her previous CVA and this is not new. Initial Stroke Scale Score:: 1 Progress - Date and Time Seen: Date and Time: 01/03/19 12:10 68-year-old female presenting for what was initially thought to be altered mental status. Upon exam she was not altered but rather tired. She recently started zolpidem a few days ago. Pt had difficulty staying awake by was able to do so with interactions and verbal prompts. Symptoms are most likely secondary to polypharmacy as well as zolpidem. Her CT had lab work and stroke scale are all reassuring. Inpatient team was consulted and Pt was placed on the floors for further care. 01/07/19 17:39 01/07/19 17:47 - Results and Orders Patient's Lab Results:: I have reviewed the patient's lab results. - Vital Signs Patient's Vital Signs:: I have reviewed the patient's vital signs. Vital Signs: Vital Signs 01/03/19 09:24 01/03/19 09:25 01/03/19 09:56 Temperature 36.6 C Pulse Rate 79 Respiratory Rate 22 H Blood Pressure 141/88 O2 Sat by Pulse Oximetry 91 L 90 L 92 L - Progress/Reassessment Chief Complaint: Altered Mental Status Progress:: Pain free at discharge - Transfer of Care Expected Disposition: Discharge Departure Clinical Impression: Medication side effect - Departure Disposition: Still a patient Condition: Stable
[2019-01-03 10:03] LABS: INR 1.18 INR (0.92-1.08); Partial Thrombolplastin Time 28.6 Seconds (24-32)
[2019-01-03 10:05] LABS: Albumin * 3.1 gm/dl (3.4-5.0); Anion Gap 11.8 mmol/L (6.8-13.8); BUN/Creatinine Ratio 18.4 (9.0-21.6); Bilirubin, Total 0.8 mg/dL (0.0-1.1); Ca. Corrected For Albumin 8.6 mg/dL (8.4-10.2); Calcium * 8.2 mg/dL (7.9-10.9); Carbon Dioxide 24.8 mmol/L (24-32.6); Potassium 3.6 mmol/L (3.4-4.6); Total Protein 5.8 gm/dL (6.2-8.2)
[2019-01-03 10:24] LABS: Urine Appearance Clear (CLEAR); Urine Bacteria None Seen; Urine Bilirubin Negative (NEGATIVE); Urine Blood Negative /ul (NEGATIVE); Urine Color Dark Yellow; Urine Ketone Negative (NEGATIVE); Urine Nitrite Negative (NEGATIVE); Urine Protein Negative (NEGATIVE); Urine RBC None Seen /hpf (0-5); Urine Urobilinogen Normal (NORMAL); Urine WBC None Seen /hpf (0-5); Urine pH 5.5 pH (5.0-7.0)
[2019-01-03 13:07] LABS: Troponin I Less than 0.017 ng/mL (0.00-0.10)
--- NOTE | 2019-01-03 15:56 | HP ---
Chief Complaint - Chief Complaint Date of Service: 01/03/19 Time of Service: 03:53 Chief Complaint: Altered mental status History of Present Illness: 68 female with multiple comorbidities including history of CVA x2, Coronary Artery Disease, Atrial Fibrillation, Qph-Cigpyea-Vlfkiiuta Diabetes Mellitus Type II, Essential Hypertension, Dementia, Major Depressive Disorder, Insomnia, Generalized Anxiety Disorder, presents to [facility] ER with concerns of altered mental status for couple of days. Upon arrival to the ER, patient was hypoxic with oxygen of 88% on room air and tachypneic, blood pressure was within normal limits. She was started on 2 L nasal cannula and responded well. Physical examination completed in the emergency room reports patient was not altered upon arrival to the ER. Patient was recently started zolpidem a couple days ago, and symptoms of altered mental status were most likely attributeD to polypharmacy as well as zolpidem. Extensive work-up was completed including CT head which showed no acute intracranial process and stroke scale was reassuring. Remaining work-up for infectious etiology was unremarkable. Patient admitted for overnight observation. On arrival to the floor, patient is evaluated, speech is difficult to understand and slurring in nature, however remaining neurological exam is intact. NIHSS 1. Patient is alert and oriented x3. Patient states that she is been feeling tired and not well for couple of weeks. She is not aware why she was brought in the ER by her , she states it is most likely because she has not been feeling well and she has been having a lot of dry mouth. As per nursing staff, has noticed behavioral changes over the last couple of days. Is very difficult to understand patient, will wait to discuss with her in regards to her behavioral changes. Medical History (Last Reviewed 01/03/19 @ 14:42 by Danielle Kim RN) Type 2 diabetes mellitus (Chronic) Glossitis (Acute) Gingivostomatitis (Acute) Dementia (Chronic) Low back pain (Chronic) Axillary lymphadenopathy (Acute) Localized superficial swelling, mass, or lump (Acute) Macrocytosis without anemia (Chronic) SUE (generalized anxiety disorder) (Chronic) Insomnia (Chronic) Falls (Acute) Multiple contusions (Acute) Fatigue (Chronic) Iron deficiency (Chronic) Cataract cortical, senile (Chronic) External otitis of right ear (Acute) Oral candidiasis (Acute) Hyperesthesia (Acute) Fell and bumped the upper lip and has been overly sensitive since. Afib Atrial fibrillation CVA (cerebral vascular accident) Coronary artery disease Depression Diabetes type 2, controlled Hypertension Melanoma Removed from forehead Pneumonia Pneumonia Right clavicle fracture Stroke Toxic metabolic encephalopathy Type 2 diabetes mellitus Cardiac dysrhythmia Surgical History: Surgical History (Last Reviewed 01/03/19 @ 14:42 by Danielle Kim RN) H/O bilateral hip replacements H/O coronary artery bypass surgery H/O tubal ligation History of back surgery History of cataract extraction with lens replacement Bilateral History of left hip replacement History of right hip replacement Status post double vessel coronary artery bypass bipap surgery Family History: Family History (Last Reviewed 01/03/19 @ 14:42 by Danielle Kim RN) Mother , @ 83 Heart disease Diabetes Father , Unknown age Parkinsons disease Mother Diabetes Father Parkinsons disease Social History: (Last Reviewed 01/03/19 @ 14:42 by Danielle Kim RN) Social History: Marital status: household members: spouse, children number of children: 2 current occupational status: unemployed, retired Highest education level completed: some college, no degree Service: No Tobacco: Smoking Status: Never smoker Alcohol: alcohol intake: current Alcohol type: hard liquor alcohol intake frequency: holiday/special occasion Substance Use: substance use type: does not use Dietary Habits: caffeine: Yes Type: carbonated beverages Review Of Systems (GEN) - Review of Systems Generalized/Overall Review: Present: Weakness, Fatigue EENTM: Present: Other - Dryness of mouth Respiratory: Absent: Cough Cardiac: Absent: Chest Pain, Edema Abdominal: Absent: Nausea, Vomiting, Abdominal Pain Genitourinary: Absent: No Symptoms Reported Neurological: Present: Emotional Problems, Weakness Immunizations: IMMUNIZATION HX Immunizations Up to Date Yes History of Influenza Vaccine Yes Hx Pneumococcal Vaccination Yes Allergies/Adverse Reactions: Allergies Allergy/AdvReac Type Severity Reaction Status Date / Time lithium [[place]] AdvReac Mild leg pain Verified 01/01/19 08:22 Home Medications: HOME MEDICATIONS Gabapentin 600 mg PO TID 06/12/17 [Last Taken Unknown] Multivitamin [One Daily Multivitamin] 1 ea PO DAILY 06/12/17 [Last Taken Unknown] Nitroglycerin [Nitrostat] 0.4 mg SL Q5MIN PRN 06/12/17 [Last Taken Unknown] Potassium 99 mg PO DAILY 06/12/17 [Last Taken Unknown] atenolol 50 mg tablet 50 mg PO BID #30 tab 08/28/17 [Last Taken Unknown] Amiodarone HCl 200 mg PO DAILY 11/19/17 [Last Taken Unknown] glipizide 5 mg tablet 5 mg PO BID #60 tab 03/04/18 [Last Taken Unknown] Melatonin/Pyridoxine [Melatonin 5 mg Tablet] 10 mg PO HS 05/12/18 [Last Taken Unknown] ferrous sulfate 324 mg (65 mg iron) tablet,delayed release 325 mg PO DAILY #30 tab 05/14/18 [Last Taken Unknown] amlodipine 5 mg tablet 5 mg PO DAILY #30 tab 05/18/18 [Last Taken Unknown] omeprazole 20 mg tablet,delayed release 20 mg PO BID #60 tab 08/03/18 [Last Taken Unknown] Furosemide [Lasix] 80 mg PO DAILY 09/04/18 [Last Taken Unknown] metoprolol tartrate 25 mg tablet 25 mg PO BID #60 tab 10/15/18 [Last Taken Unknown] meloxicam 15 mg tablet 15 mg PO DAILY #30 tab 10/29/18 [Last Taken Unknown] lidocaine HCl 2 % mucosal solution 1 applic MUCOUS MEMBRANE QID PRN #100 ml 11/16/18 [Last Taken Unknown] lorazepam 1 mg tablet 1 mg PO TID PRN #90 tab 11/16/18 [Last Taken Unknown] zolpidem 10 mg tablet 15 mg PO HS PRN #45 tab 11/16/18 [Last Taken Unknown] atorvastatin 40 mg tablet 80 mg PO HS #60 tab 11/17/18 [Last Taken Unknown] quetiapine 50 mg tablet 100 mg PO HS #60 tab 11/17/18 [Last Taken Unknown] Albuterol Sulfate [Proair Hfa] 2 puff INHALATION Q4H PRN #1 inhaler 01/01/19 [Last Taken Unknown] Lidocaine HCl [Lidocaine HCl Viscous 2%] 20 ml MM Q1H PRN #20 udc 01/02/19 [Last Taken Unknown] Apixaban [Eliquis] 5 mg PO BID 01/03/19 [Last Taken Unknown] Cyclobenzaprine HCl 10 mg PO TID 01/03/19 [Last Taken Unknown] Levothyroxine Sodium [Synthroid] 137 mg PO DAILY 01/03/19 [Last Taken Unknown] Promethazine HCl [Phenergan (Promethazine)] 25 mg PO DAILY 01/03/19 [Last Taken Unknown] Venlafaxine HCl [Effexor Xr] 150 mg PO DAILY 01/03/19 [Last Taken Unknown] traMADol HCL [Tramadol HCl] 50 mg PO QID 01/03/19 [Last Taken Unknown] Exam - Exam Vital Signs: Vital Signs - Last Taken Temp 36.4 C 01/03/19 14:27 Pulse 80 01/03/19 14:27 Resp 20 01/03/19 14:27 BP 156/102 H 01/03/19 15:21 Pulse Ox 98 01/03/19 14:27 Constitutional: Present: Alert, Oriented x3, Cooperative ENT Exam: Present: hearing grossly normal Eye Exam: bilateral eye: normal inspection, PERRL, EOMI Neck: Present: non-tender, full range of motion Respiratory: Present: no respiratory distress, no accessory muscle use, other - Hard to appreciate any abnormalities on physical examination of her lungs due to body habitus Cardiovascular/Chest: Present: normal peripheral pulses, regular rate, rhythm, no chest tenderness, no JVD, systolic murmur - Left upper sternal border Abdomen: Present: Normal bowel sounds, soft, nontender Extremity: Present: normal range of motion, non-tender, normal inspection, lower extremity edema - Bilaterally Skin Exam: Present: normal color, warm/dry Neurologic: Present: alert, oriented x 3, other - Slurring of speech and hard to understand. She is coherent. Patient is a history of dementia therefore this may be her baseline will await to discuss with in regards to her speech.. Absent: aphasia, facial droop, motor weakness, depressed affect, dizzy/light-headedness Appearance: Present: appropriate appearance Eye contact: Present: good eye contact Thoughts: Present: other - Unable to evaluate due to slurring versus mumbling of speech and difficulty in understanding her speech. However she is coherent. Diagnostic Studies: Abnormal Lab Results 01/03/19 01/03/19 01/03/19 Range/Units 09:45 09:45 09:45 RBC 3.03 L (4.2-5.4) M/mm3 Hgb 10.0 L (12.5-16.0) gm/dL Hct 30.9 L (37.0-47.0) % MCV 102.0 H (78-100) fl MCH 33.0 H (27-31) pg Plt Count 148 L (150-450) K/mm3 Neutrophils % 75.2 H (42-75.0) % Lymphocytes % 12.5 L (20-51) % Eosinophils % 4.3 H (0.0-3.0) % Lymphocytes # 0.72 L (1.5-3.5) k/mm3 PT 11.6 H (9.1-10.7) Seconds INR (Anticoag Therapy) 1.18 H (0.92-1.08) INR pO2 (83.0-108.0) mmHg Total CO2 (19.0-24.0) mmol/L Chloride 107 H (97-106) mmol/L Est GFR (Non-Af Amer) 45 L (60-130) mL/min Random Glucose 220 H D (70-110) mg/dL ALT 16 L (19-67) U/L Total Protein 5.8 L (6.2-8.2) gm/dL Albumin 3.1 L (3.4-5.0) gm/dl 01/03/19 Range/Units 12:43 RBC (4.2-5.4) M/mm3 Hgb (12.5-16.0) gm/dL Hct (37.0-47.0) % MCV (78-100) fl MCH (27-31) pg Plt Count (150-450) K/mm3 Neutrophils % (42-75.0) % Lymphocytes % (20-51) % Eosinophils % (0.0-3.0) % Lymphocytes # (1.5-3.5) k/mm3 PT (9.1-10.7) Seconds INR (Anticoag Therapy) (0.92-1.08) INR pO2 73.4 L (83.0-108.0) mmHg Total CO2 25.5 H (19.0-24.0) mmol/L Chloride (97-106) mmol/L Est GFR (Non-Af Amer) (60-130) mL/min Random Glucose (70-110) mg/dL ALT (19-67) U/L Total Protein (6.2-8.2) gm/dL Albumin (3.4-5.0) gm/dl Laboratory Results WBC 5.8 K/mm3 (4.0-10.5) 01/03/19 09:45 RBC 3.03 M/mm3 (4.2-5.4) L 01/03/19 09:45 Hgb 10.0 gm/dL (12.5-16.0) L 01/03/19 09:45 Hct 30.9 % (37.0-47.0) L 01/03/19 09:45 MCV 102.0 fl (78-100) H 01/03/19 09:45 MCH 33.0 pg (27-31) H 01/03/19 09:45 MCHC 32.4 g/dl (32-36) 01/03/19 09:45 RDW 13.5 % (11.5-14.0) 01/03/19 09:45 Plt Count 148 K/mm3 (150-450) L 01/03/19 09:45 MPV 8.5 fl (8-12.5) 01/03/19 09:45 Immature Gran % (Auto) 0.30 % (0.001-0.429) 01/03/19 09:45 Immature Gran # (Auto) 0.02 K/mm3 (0.000-0.0310) 01/03/19 09:45 Neutrophils % 75.2 % (42-75.0) H 01/03/19 09:45 Lymphocytes % 12.5 % (20-51) L 01/03/19 09:45 Monocytes % 6.8 % (0.0-9) 01/03/19 09:45 Eosinophils % 4.3 % (0.0-3.0) H 01/03/19 09:45 Basophils % 0.9 % (0.0-1.0) 01/03/19 09:45 Nucleated RBC % 0.0 k/mm3 (0-1) 01/03/19 09:45 Neutrophils # 4.3 K/mm3 (1.3-6.0) 01/03/19 09:45 Lymphocytes # 0.72 k/mm3 (1.5-3.5) L 01/03/19 09:45 Monocytes # 0.4 k/mm3 (0.0-1.0) 01/03/19 09:45 Eosinophils # 0.3 k/mm3 (0.0-0.7) 01/03/19 09:45 Absolute Basophils 0.1 k/mm3 (0.0-0.1) 01/03/19 09:45 PT 11.6 Seconds (9.1-10.7) H 01/03/19 09:45 INR (Anticoag Therapy) 1.18 INR (0.92-1.08) H 01/03/19 09:45 PTT (Courtney) 28.6 Seconds (24-32) 01/03/19 09:45 pCO2 40.1 mmHg (32.0-45.0) 01/03/19 12:43 pO2 73.4 mmHg (83.0-108.0) L 01/03/19 12:43 HCO3 24.2 mmol/L (21.0-28.0) 01/03/19 12:43 Total CO2 25.5 mmol/L (19.0-24.0) H 01/03/19 12:43 Base Excess -0.5 mmol/L (-2.0-3.0) 01/03/19 12:43 ABG pH 7.40 (7.35-7.45) 01/03/19 12:43 ABG O2 Sat (Measured) 94.8 % (94.0-98.0) 01/03/19 12:43 Sodium 140 mmol/L (132-142) 01/03/19 09:45 Plasma Sodium 142 mmol/L (130-142) 01/03/19 09:45 Potassium 3.6 mmol/L (3.4-4.6) 01/03/19 09:45 Chloride 107 mmol/L (97-106) H 01/03/19 09:45 Carbon Dioxide 24.8 mmol/L (24-32.6) 01/03/19 09:45 Anion Gap 11.8 mmol/L (6.8-13.8) 01/03/19 09:45 BUN 23 mg/dL (3-23) 01/03/19 09:45 Creatinine 1.25 mg/dL (0.4-1.4) 01/03/19 09:45 Est GFR (Non-Af Amer) 45 mL/min (60-130) L 01/03/19 09:45 BUN/Creatinine Ratio 18.4 (9.0-21.6) 01/03/19 09:45 Random Glucose 220 mg/dL (70-110) H D 01/03/19 09:45 Lactic Acid, Venous 1.8 mmol/L (0.4-2.0) 01/03/19 09:45 Calcium 8.2 mg/dL (7.9-10.9) 01/03/19 09:45 Calcium Adj for Albumin 8.6 mg/dL (8.4-10.2) 01/03/19 09:45 Total Bilirubin 0.8 mg/dL (0.0-1.1) 01/03/19 09:45 AST 13 U/L (0-48) 01/03/19 09:45 ALT 16 U/L (19-67) L 01/03/19 09:45 Alkaline Phosphatase 117 U/L (50-170) 01/03/19 09:45 CK-MB (CK-2) 1.0 ng/mL (0.0-9.0) 01/03/19 09:48 Troponin I Less than 0.017 ng/mL (0.00-0.10) 01/03/19 09:48 Total Protein 5.8 gm/dL (6.2-8.2) L 01/03/19 09:45 Albumin 3.1 gm/dl (3.4-5.0) L 01/03/19 09:45 Urine Color Dark yellow 01/03/19 10:06 Urine Appearance Clear (CLEAR) 01/03/19 10:06 Urine pH 5.5 pH (5.0-7.0) 01/03/19 10:06 Ur Specific [place] 1.030 SP.GR. (1.005-1.010) 01/03/19 10:06 Urine Protein Negative mg/dL (NEGATIVE) 01/03/19 10:06 Urine Glucose (UA) Negative mg/dL (NEGATIVE) 01/03/19 10:06 Urine Ketones Negative mg/dL (NEGATIVE) 01/03/19 10:06 Urine Blood Negative /ul (NEGATIVE) 01/03/19 10:06 Urine Nitrate Negative (NEGATIVE) 01/03/19 10:06 Urine Bilirubin Negative mg/dl (NEGATIVE) 01/03/19 10:06 Urine Urobilinogen Normal EU/dl (NORMAL) 01/03/19 10:06 Ur Leukocyte Esterase Negative /ul (NEGATIVE) 01/03/19 10:06 Urine RBC None seen /hpf (0-5) 01/03/19 10:06 Urine WBC None seen /hpf (0-5) 01/03/19 10:06 Ur Epithelial Cells None seen /hpf (0-5) 01/03/19 10:06 Urine Bacteria None seen (NONE) 01/03/19 10:06 Urine Culture Comments No culture indicated 01/03/19 10:06 Assessment/Plan - Narrative Narrative: Assessment/Plan (1) Acute encephalopathy with behavioral disturbances Problem: Acute -Most likely polypharmacy versus noncompliance with antipsychotic medication versus worsening of dementia versus hypoxia -CT head ruled out any acute intracranial process and NIH SS 1 which was reassuring. If patient changes acutely neurologically will follow up with an MRI in the morning. Currently MRI is ordered we will cancel in the morning if not warranted. -We will continue with neurochecks every 4 hours overnight -We will continue Seroquel and Effexor -Hold cyclobenzaprine, gabapentin, tramadol, Ambien -Currently on 2 L nasal cannula, start weaning off oxygen as a 5 AM tomorrow morning -Consult behavioral health from the morning (2) Generalized weakness Problem: Acute -PT eval and treat in a.m. (3) Lower extremity edema Problem: Acute -Cardiac work-up unremarkable -EKG pending -Chest x-ray consistent enlarged heart however two-view chest x-ray recommended for follow-up -Chest x-ray ordered for a.m. -BNP pending -Continue with Lasix 80 mg daily (4) Hyperglycemia due to type 2 diabetes mellitus Problem: Acute -Mildly elevated most likely due to recent p.o. intake -Continue glipizide 5 mg p.o. twice daily -We will continue to monitor (5) Atrial fibrillation Problem: Chronic -Continuous telemetry -Continue metoprolol -Continue Eliquis -Hold meloxicam due to complication in patients with history of CVA, coronary artery disease and atrial fib. (6) Essential hypertension Problem: Chronic -Elevated on admission -most likely patient has not taken antihypertensive medications today -Medication list verified and reconciled, patient will be receiving her nighttime antihypertensive medication - Will continue to monitor. -Vital signs every 4 hours Fluids electrolytes and nutrition: N.p.o. till patient passes bedside swallow test, consistent carbs and heart healthy diet DVT prophylaxis: Continue Eliquis 5 mg p.o. twice daily CODE STATUS: Full code Disposition: - Anticipating mental status to improve overnight. - Symptoms likely secondary to polypharmacy and less likely neurological. - Will discuss with in regards to her neurological baseline. - We will consult behavioral health in a.m. - If they are acute neurological changes overnight will follow up with an MRI in the morning. - Anticipate discharge within 24 hours of admission. - Assessment/Plan (1) Acute encephalopathy Problem: Acute (2) Generalized weakness Problem: Acute (3) Lower extremity edema Problem: Chronic (4) Behavior disturbance Problem: Acute (5) Hyperglycemia due to type 2 diabetes mellitus Problem: Acute Qualifiers: Diabetes mellitus terminal operator insulin use: without usp use Qualified Code(s): E11.65 - Type 2 diabetes mellitus with hyperglycemia (6) Essential (primary) hypertension Problem: Chronic
[2019-01-03] MEDS ORDERED: NITROGLYCERIN 0.4 MG/TAB BTL SL PRN (17:19)
[2019-01-03] MEDS ORDERED: ALBUTEROL SULFATE 200 PUFF INHALER IH PRN (17:19)
[2019-01-03] MEDS ORDERED: METOPROLOL TARTRATE 25 MG TABLET ONE (19:24)
[2019-01-03] MEDS ORDERED: ATENOLOL 50 MG TABLET ONE (19:25)
[2019-01-03] MEDS: METOPROLOL TARTRATE 25 MG TABLET PO SCH ×3 (19:26→20:02)
[2019-01-03] MEDS: ATENOLOL 50 MG TABLET PO SCH ×2 (19:29→20:03)
[2019-01-03] MEDS ORDERED: ROSUVASTATIN CALCIUM 10 MG TABLET ONE (20:25)
[2019-01-03] MEDS: APIXABAN 5 MG TABLET PO SCH (20:28)
[2019-01-03] MEDS ORDERED: QUEtiapine FUMARATE 100 MG TABLET PO SCH (21:00)
[2019-01-03] MEDS ORDERED: ROSUVASTATIN CALCIUM 20 MG TABLET PO SCH (21:00)
[2019-01-03] MEDS ORDERED: ACETAMINOPHEN 500 MG TABLET PO PRN (23:50)
[2019-01-04] MEDS: IBUPROFEN 800 MG TABLET PO PRN ×2 (00:18→08:24)
[2019-01-04 05:29] LABS: Hematocrit 33.3 % (37.0-47.0); Hemoglobin 10.8 gm/dL (12.5-16.0); Mean Cell Volume 101.2 fl (78-100); Mean Corpuscular Hemoglobin 32.8 pg (27-31); Mean Corpuscular Hgb Conc 32.4 g/dl (32-36); Mean Platelet Volume 8.8 fl (8-12.5); Neutrophil # 3.9 K/mm3 (1.3-6.0); Neutrophil % 64.3 % (42-75.0); Platelet Count 171 K/mm3 (150-450); Red Blood Count 3.29 M/mm3 (4.2-5.4); Red Cell Distribution Width 13.6 % (11.5-14.0); White Blood Count 6.1 K/mm3 (4.0-10.5)
[2019-01-04 05:48] LABS: Albumin * 3.5 gm/dl (3.4-5.0); Anion Gap 8.7 mmol/L (6.8-13.8); BUN/Creatinine Ratio 17.1 (9.0-21.6); Bilirubin, Total 0.9 mg/dL (0.0-1.1); Ca. Corrected For Albumin 8.8 mg/dL (8.4-10.2); Calcium * 8.7 mg/dL (7.9-10.9); Carbon Dioxide 27.1 mmol/L (24-32.6); Potassium 3.8 mmol/L (3.4-4.6); Total Protein 6.2 gm/dL (6.2-8.2)
[2019-01-04] MEDS ORDERED: ALBUTEROL SULFATE 2.5 MG/0.5 ML VIAL.NEB IH PRN (06:30)
[2019-01-04] MEDS ORDERED: PANTOPRAZOLE SODIUM 20 MG TABLET.DR PO SCH (07:00)
[2019-01-04] MEDS ORDERED: LEVOTHYROXINE SODIUM 137 MCG TABLET PO SCH (07:00)
[2019-01-04] MEDS ORDERED: glipiZIDE 5 MG TABLET PO SCH (07:00)
[2019-01-04] MEDS: APIXABAN 5 MG TABLET PO SCH (08:23)
[2019-01-04] MEDS: METOPROLOL TARTRATE 25 MG TABLET PO SCH (08:23)
[2019-01-04] MEDS: ATENOLOL 50 MG TABLET PO SCH (08:24)
[2019-01-04] MEDS ORDERED: MULTIVITAMINS 1 CAP CAPSULE PO SCH (09:00)
[2019-01-04] MEDS ORDERED: PROMETHAZINE HCL 25 MG TABLET PO SCH (09:00)
[2019-01-04] MEDS ORDERED: AMIODARONE HCL 200 MG TABLET PO SCH (09:00)
[2019-01-04] MEDS ORDERED: FUROSEMIDE 40 MG TABLET PO SCH (09:00)
[2019-01-04] MEDS ORDERED: amLODIPine BESYLATE 5 MG TABLET PO SCH (09:00)
[2019-01-04] MEDS ORDERED: VENLAFAXINE HCL 150 MG CAP.SR.24H PO SCH (09:00)
--- NOTE | 2019-01-04 13:05 | DS ---
Date of Discharge:: 01/04/19 Description of Stay: Michelle Rodriguez is a 68-year-old female who was admitted with acute alteration in mental status. She states she had not been feeling well for about the past week. She became delirious and confused and nearly nonverbal and so she was brought to the hospital where she was evaluated. The cause of her acute mental status change is unknown. There are no metabolic parameters to have caused it. CT scan shows no acute changes intracranially. She is received some IV fluids. She is back to her normal baseline this morning and feeling better than she has in about a week. Her says that there may been some confusion about her medication but he is not sure. Michelle does not have any idea what happened. She does have a history of overdosing on medication in the past. At any rate, she has been much better this morning and there is been no more confusion. Procedures Performed: none Results and Findings: Lab Pending Results 01/03/19 09:45: WBC 5.8, RBC 3.03 L, Hgb 10.0 L, Hct 30.9 L, MCV 102.0 H, MCH 33.0 H, MCHC 32.4, RDW 13.5, Plt Count 148 L, MPV 8.5, Immature Gran % (Auto) 0.30, Immature Gran # (Auto) 0.02, Neutrophils % 75.2 H, Lymphocytes % 12.5 L, Monocytes % 6.8, Eosinophils % 4.3 H, Basophils % 0.9, Nucleated RBC % 0.0, Neutrophils # 4.3, Lymphocytes # 0.72 L, Monocytes # 0.4, Eosinophils # 0.3, Absolute Basophils 0.1 01/03/19 09:45: PT 11.6 H, INR (Anticoag Therapy) 1.18 H, PTT (Lea) 28.6 01/03/19 09:45: Sodium 140, Plasma Sodium 142, Potassium 3.6, Chloride 107 H, Carbon Dioxide 24.8, Anion Gap 11.8, BUN 23, Creatinine 1.25, Est GFR (Non-Af Amer) 45 L, BUN/Creatinine Ratio 18.4, Random Glucose 220 H D, Calcium 8.2, Calcium Adj for Albumin 8.6, Total Bilirubin 0.8, AST 13, ALT 16 L, Alkaline Phosphatase 117, Total Protein 5.8 L, Albumin 3.1 L 01/03/19 09:45: Lactic Acid, Venous 1.8 01/03/19 09:48: CK-MB (CK-2) 1.0, Troponin I Less than 0.017 01/03/19 10:06: Urine Color Dark yellow, Urine Appearance Clear, Urine pH 5.5, Ur Specific [place] 1.030, Urine Protein Negative, Urine Glucose (UA) Negative, Urine Ketones Negative, Urine Blood Negative, Urine Nitrate Negative, Urine Bilirubin Negative, Urine Urobilinogen Normal, Ur Leukocyte Esterase Negative, Urine RBC None seen, Urine WBC None seen, Ur Epithelial Cells None seen, Urine Bacteria None seen, Urine Culture Comments No culture indicated 01/03/19 12:43: pCO2 40.1, pO2 73.4 L, HCO3 24.2, Total CO2 25.5 H, Base Excess -0.5, ABG pH 7.40, ABG O2 Sat (Measured) 94.8 01/04/19 05:00: Sodium 137, Plasma Sodium 138, Potassium 3.8, Chloride 105, Carbon Dioxide 27.1, Anion Gap 8.7, BUN 20, Creatinine 1.17, Est GFR (Non-Af Amer) 49 L, BUN/Creatinine Ratio 17.1, Random Glucose 174 H, Calcium 8.7, Calcium Adj for Albumin 8.8, Total Bilirubin 0.9, AST 16, ALT 17 L, Alkaline Phosphatase 138, B-Natriuretic Peptide 1496 H, Total Protein 6.2, Albumin 3.5 01/04/19 05:00: WBC 6.1, RBC 3.29 L, Hgb 10.8 L, Hct 33.3 L, MCV 101.2 H, MCH 32.8 H, MCHC 32.4, RDW 13.6, Plt Count 171, MPV 8.8, Immature Gran % (Auto) 0.30, Immature Gran # (Auto) 0.02, Neutrophils % 64.3, Lymphocytes % 20.1, Monocytes % 7.7, Eosinophils % 6.4 H, Basophils % 1.2 H, Nucleated RBC % 0.0, Neutrophils # 3.9, Lymphocytes # 1.22 L, Monocytes # 0.5, Eosinophils # 0.4, Absolute Basophils 0.1 Discharge Location: Home Disposition: Home self-care Condition: Stable Face to Face Encounter completed per CMS Guidelines: No Discharge Activity: Activity as tolerated Discharge Diet: Consistent carbs Problem Oriented Discharge Instructions to Patient/Family: Confusion Additional Patient Instructions (free text): Follow-up with Dr. Cruz on Jan 21 at 2:45 p.m. Complete Home Medications List: Complete Home Medication List: Gabapentin 600 mg PO TID 06/12/17 Multivitamin [One Daily Multivitamin] 1 ea PO DAILY 06/12/17 Nitroglycerin [Nitrostat] 0.4 mg SL Q5MIN PRN 06/12/17 Potassium 99 mg PO DAILY 06/12/17 atenolol 50 mg tablet 50 mg PO BID #30 tab 08/28/17 Amiodarone HCl 200 mg PO DAILY 11/19/17 glipizide 5 mg tablet 5 mg PO BID #60 tab 03/04/18 Melatonin/Pyridoxine [Melatonin 5 mg Tablet] 10 mg PO HS 05/12/18 ferrous sulfate 324 mg (65 mg iron) tablet,delayed release 325 mg PO DAILY #30 tab 05/14/18 amlodipine 5 mg tablet 5 mg PO DAILY #30 tab 05/18/18 omeprazole 20 mg tablet,delayed release 20 mg PO BID #60 tab 08/03/18 Furosemide [Lasix] 80 mg PO DAILY 09/04/18 metoprolol tartrate 25 mg tablet 25 mg PO BID #60 tab 10/15/18 meloxicam 15 mg tablet 15 mg PO DAILY #30 tab 10/29/18 lidocaine HCl 2 % mucosal solution 1 applic MUCOUS MEMBRANE QID PRN #100 ml 11/16/18 lorazepam 1 mg tablet 1 mg PO TID PRN #90 tab 11/16/18 zolpidem 10 mg tablet 15 mg PO HS PRN #45 tab 11/16/18 atorvastatin 40 mg tablet 80 mg PO HS #60 tab 11/17/18 quetiapine 50 mg tablet 100 mg PO HS #60 tab 11/17/18 Albuterol Sulfate [Proair Hfa] 2 puff INHALATION Q4H PRN #1 inhaler 01/01/19 Lidocaine HCl [Lidocaine HCl Viscous 2%] 20 ml MM Q1H PRN #20 udc 01/02/19 Apixaban [Eliquis] 5 mg PO BID 01/03/19 Cyclobenzaprine HCl 10 mg PO TID 01/03/19 Levothyroxine Sodium [Synthroid] 137 mg PO DAILY 01/03/19 Promethazine HCl [Phenergan (Promethazine)] 25 mg PO DAILY 01/03/19 Venlafaxine HCl [Effexor Xr] 150 mg PO DAILY 01/03/19 traMADol HCL [Tramadol HCl] 50 mg PO QID 01/03/19 Acetaminophen [Tylenol] 1,000 mg PO Q6H PRN tab 01/04/19
[2019-01-04 13:29] VITALS: BP 143/86
== END 2019-01-04 13:28 | disposition home or self-care (01) ==
LOC: MS 09:22 → ER 09:22 → MS 14:05
PROVIDERS: ADMIT Family Medicine; ATTEND Family Medicine
DX: E03.9 Hypothyroidism, unspecified; D50.9 Iron deficiency anemia, unspecified; J44.9 Chronic obstructive pulmonary disease, unspecified; E11.9 Type 2 diabetes mellitus without complications; R41.82 Altered mental status, unspecified
CPT/HCPCS: 36415; 36600; 70450; 71020; 71046; 80053; 81001; 82553; 82803; 83519; 83605; 83880; 84484; 85025; 85610; 85730; 93005; 97161; 99285; G0378

== ENCOUNTER 2019-08-03 04:54 | Observation (INO) ==
[2019-08-03] MEDS ORDERED: ASPIRIN 81 MG TAB.CHEW ONE (05:07)
[2019-08-03] MEDS ORDERED: ASPIRIN 81 MG TAB.CHEW PO ONE (05:10)
[2019-08-03] MEDS ORDERED: NITROGLYCERIN 0.4 MG/TAB BTL SL ONE (05:11)
--- NOTE | 2019-08-03 05:25 | ERNOTE ---
Dyspnea - Date Date of Service: 08/03/19 - General Presenting Symptoms: shortness of breath Time Seen by Provider: 08/03/19 05:12 Source: patient, family Exam Limitations: no limitations - Immun/Allergies/Home Medications Immunizations: IMMUNIZATION HX Immunizations Up to Date Yes History of Influenza Vaccine Yes Hx Pneumococcal Vaccination Yes Allergies/Adverse Reactions: Allergies lithium [[place]] Adverse Reaction (Mild, Verified 08/03/19 05:02) leg pain dust Allergy (Uncoded 08/03/19 05:02) Home Medications: HOME MEDICATIONS Acetaminophen [Tylenol] 1,000 mg PO Q6H PRN tab 01/04/19 [Last Taken Unknown] Melatonin 10 mg PO HS 01/04/19 [Last Taken 04/09/19] Multivitamin [One Daily Multivitamin] 1 ea PO DAILY 01/04/19 [Last Taken 04/09/19] Nitroglycerin [Nitrostat] 0.4 mg SUBLINGUAL Q5MIN PRN 01/04/19 [Last Taken Unknown] amLODIPine BESYLATE [Norvasc] 5 mg PO DAILY #30 tab 05/30/19 [Last Taken Unknown] apixaban 5 mg tablet 5 mg PO BID #60 tab 06/22/19 [Last Taken Unknown] atorvastatin 80 mg tablet 80 mg PO HS #30 tab 06/22/19 [Last Taken Unknown] glipizide 5 mg tablet 5 mg PO BID #60 tab 06/22/19 [Last Taken Unknown] metoprolol tartrate 25 mg tablet 25 mg PO BID #60 tab 06/22/19 [Last Taken Unknown] omeprazole 20 mg delayed release,disintegrating tablet 20 mg PO BID #60 tab. 06/22/19 [Last Taken Unknown] levothyroxine 50 mcg tablet 50 mcg PO DAILY #30 tab 07/26/19 [Last Taken Unknown] Isosorbide Mononitrate [Imdur] 30 mg PO DAILY 08/03/19 [Last Taken Unknown] - History of Present Illness Narrative: Patient comes in for shortness of breath that is been going on for 2-1/2 days now. He continues to get worse. This is associated with some left-sided chest pressure. She has history of COPD, CHF, double bypass, history of stroke. She did not come in sooner because she was worried about coronavirus. She was taking Eliquis at home instead of nitro because she thought this might help. It did not. She is on a long list of medications for heart. Her bypass was 10 years ago, her stroke was just a few years ago. She denies any chest pain, states the chest pressure has been present for several days now. Her weight has been fluctuating. Her legs have been swelling. She is not coughing. No fever. The shortness of breath and chest pressure are significantly worse with any activity. Date (Duration): 07/31/19 Severity: moderate Associated Symptoms-Dyspnea: Reports: ankle/leg swelling Review of Systems - Review of Systems Constitutional: Present: fatigue, decreased activity level. Absent: fever, diaphoresis ENT: Present: no symptoms reported Respiratory: Present: shortness of breath, orthopnea. Absent: cough, wheezing Cardiology: Absent: chest pain Gastrointestinal/Abdominal: Present: no symptoms reported Musculoskeletal: Present: no symptoms reported Skin: Present: no symptoms reported Psych: Present: no symptoms reported Medical History (Last Reviewed 08/03/19 @ 05:24 by Lizeth Esteban MD) Heart murmur, systolic (Acute) Type 2 diabetes mellitus (Chronic) History of coronary artery disease (Chronic) Iron deficiency anemia (Chronic) Atrial fibrillation (Acute) CKD (chronic kidney disease) stage 3, GFR 30-59 ml/min (Chronic) Hyperglycemia due to type 2 diabetes mellitus (Acute) GI bleed (Chronic) Renal failure (Chronic) Nasal fracture (Acute) Glossitis (Acute) Gingivostomatitis (Acute) Dementia (Chronic) Low back pain (Chronic) Axillary lymphadenopathy (Acute) Localized superficial swelling, mass, or lump (Acute) Macrocytosis without anemia (Chronic) SUE (generalized anxiety disorder) (Chronic) Insomnia (Chronic) Falls (Acute) Multiple contusions (Acute) Fatigue (Chronic) Iron deficiency (Chronic) Cataract cortical, senile (Chronic) External otitis of right ear (Acute) Oral candidiasis (Acute) Hyperesthesia (Acute) Fell and bumped the upper lip and has been overly sensitive since. Atrial fibrillation CVA (cerebral vascular accident) Melanoma Removed from forehead Pneumonia Right clavicle fracture Stroke Toxic metabolic encephalopathy Afib Cardiac dysrhythmia Coronary artery disease Depression Diabetes type 2, controlled Hypertension Type 2 diabetes mellitus Pneumonia Surgical History: Surgical History (Last Reviewed 08/03/19 @ 05:24 by Lizeth Esteban MD) bipap surgery H/O coronary artery bypass surgery Onset Date: ~1999 1999 triple bypass H/O tubal ligation History of back surgery Onset Date: ~2013 [facility] History of cardiac catheterization Onset Date: 06/18/1605/2011, 06/18/16 History of cataract extraction with lens replacement Bilateral History of colonoscopy Onset Date: ~1999 History of left hip replacement Onset Date: 11/15/13 Dr. Gastelum History of right hip replacement Onset Date: 03/15/04 Dr. Martines History of tonsillectomy and adenoidectomy Onset Date: Unknown Family History: Family History (Last Reviewed 08/03/19 @ 05:24 by Lizeth Esteban MD) Mother , @ 83 Heart disease Diabetes Cancer colon ca Father , age 70's Parkinsons disease Grandfather , maternal Ruptured appendix Grandmother , maternal Diabetes Heart disease Uncle Cancer 2 maternal- both with colon ca Heart disease 1 maternal Kidney failure 1 maternal Aunt Heart disease 2 maternal Social History: (Last Reviewed 08/03/19 @ 05:24 by Lizeth Esteban MD) Social History: Marital status: household members: spouse, children number of children: 2 current occupational status: unemployed, retired Highest education level completed: some college, no degree Service: No Tobacco: Smoking Status: Never smoker Alcohol: alcohol intake: current Alcohol type: hard liquor alcohol intake frequency: holiday/special occasion Substance Use: substance use type: does not use Dietary Habits: caffeine: Yes Type: carbonated beverages Physical Exam - Physical Exam General Appearance: Present: wd/wn, alert, no apparent distress Head Exam: Present: normal inspection Neck: Present: normal inspection, nontender Respiratory: Present: no respiratory distress, lungs clear Cardiovascular/Chest: Present: tachycardia, irregularly irregular, systolic murmur Gastrointestinal/Abdominal: Present: normal bowel sounds Extremity Exam: Present: pedal edema Skin Exam: Present: normal color Progress - Results and Orders Patient's Lab Results:: I have reviewed the patient's lab results. Results and Orders: Laboratory Tests 08/03/19 08/03/19 08/03/19 05:20 05:20 05:20 WBC 7.0 Hgb 9.5 L Hct 30.5 L Plt Count 164 D-Dimer 0.75 H pCO2 pO2 HCO3 Base Excess Sodium 141 Potassium 3.9 Chloride 105 BUN 17 Creatinine 1.16 Random Glucose 200 H Lactic Acid, Venous AST 20 ALT 23 Alkaline Phosphatase 121 Troponin I Less than 0.017 B-Natriuretic Peptide 1674 H Total Protein 6.0 L Albumin 3.0 L 08/03/19 08/03/19 05:20 05:29 WBC Hgb Hct Plt Count D-Dimer pCO2 32.9 pO2 68.3 L HCO3 21.9 Base Excess -1.7 Sodium Potassium Chloride BUN Creatinine Random Glucose Lactic Acid, Venous 1.1 AST ALT Alkaline Phosphatase Troponin I B-Natriuretic Peptide Total Protein Albumin - Vital Signs Vital Signs: Vital Signs 08/03/19 04:56 Temperature 37.1 C Pulse Rate 124 H Respiratory Rate 20 Blood Pressure 167/115 H O2 Sat by Pulse Oximetry 92 L - Progress/Reassessment Chief Complaint: Dyspnea Progress:: Improved Progress Note-Subjective: 08/03/19 07:24 Patient received 20 mg of IV Lasix, she voided 3 separate times. She did state that that helped her symptoms. Her symptoms also improved somewhat when she c courtney here and received aspirin and sublingual nitro. She did report that she had been taking extra Eliquis at home thinking that this blood thinner would help. We were unable to get a large enough IV placed for her to have a chest CT to rule out pulmonary embolism based on her elevated d-dimer. I felt clinically that this would be okay given her improvement with the Lasix and her clinical picture of CHF exacerbation. She did continue to have large urine output just with 20 mg of IV Lasix. I did not feel that it would be a good safe maneuver to try and follow this patient with at home diuresis so I contacted the hospitalist, her PCP is on vacation. Hospitalist agreed to admit the patient for CHF exacerbation, shortness of breath. Departure Clinical Impression: CHF (congestive heart failure), BECK (dyspnea on exertion) - Departure Disposition: Still a patient Condition: Fair Referrals: Man Cruz DO [Primary Care Provider] -
[2019-08-03] MEDS ORDERED: FUROSEMIDE 10 MG/ML VIAL IV ONE (05:27)
[2019-08-03 05:33] LABS: Hematocrit 30.5 % (37.0-47.0); Hemoglobin 9.5 gm/dL (12.5-16.0); Mean Cell Volume 99.7 fl (78-100); Mean Corpuscular Hgb Conc 31.1 g/dl (32-36); Mean Platelet Volume 8.8 fl (8-12.5); Neutrophil # 5.7 K/mm3 (1.3-6.0); Platelet Count 164 K/mm3 (150-450); Red Blood Count 3.06 M/mm3 (4.2-5.4); Red Cell Distribution Width 15.4 % (11.5-14.0)
[2019-08-03 05:52] LABS: Troponin I Less than 0.017 ng/mL (0.00-0.10)
[2019-08-03 05:54] LABS: ALT 23 U/L (19-67); AST 20 U/L (0-48); Alkaline Phosphatase * 121 U/L (50-170); Anion Gap 11.5 mmol/L (6.8-13.8); BNP * 1674 pg/mL (5-325); BUN/Creatinine Ratio 14.7 (9.0-21.6); Bilirubin, Total 0.8 mg/dL (0.0-1.1); Blood Urea Nitrogen 17 mg/dL (3-23); Ca. Corrected For Albumin 8.8 mg/dL (8.4-10.2); Calcium * 8.3 mg/dL (7.9-10.9); Carbon Dioxide 28.4 mmol/L (24-32.6); Chloride 105 mmol/L (97-106); Glucose * 200 mg/dL (70-110); Potassium 3.9 mmol/L (3.4-4.6); Sodium 141 mmol/L (132-142)
--- NOTE | 2019-08-03 08:55 | HP ---
Chief Complaint - Chief Complaint Date of Service: 08/03/19 Time of Service: 08:55 Chief Complaint: shortness of breath History of Present Illness: Patient with past medical history of A. fib, coronary artery disease with previous stent placement, previous CVA, diabetes, heart failure presents with a few days of shortness of breath. She got an inhaler yesterday which did not help. She was worried about having COVID, so she came to the ED early this morning. She denies contacts with COVID positive patients, and has limited her community activity. She also had some left-sided chest tightness and felt like she was almost gurgling. She had some foot swelling also. In the ED, her BNP is elevated at 1674. EKG showed A. fib with RVR with a heart rate of 146. White blood cell count not elevated at 7.0, lactate not elevated at 1.1. She was given 20 mg of IV Lasix, and has diuresed 1300 cc in the ED. her heart rate improved to the low 100s by the time she left the ER. On my exam, she reports improvement in her chest tightness and breathing. She is not requiring oxygen. Recent documented vitals include blood pressure is elevated to 186/91, heart rate elevated at 128, respiratory rate elevated at 22, however she has not taken any of her home medicines yet this morning. She had significant SOB with ambulation in the ED. She is not in any distress on my exam, and she is no longer tachycardic. She reports having been prescribed lasix in the past, but not currently. Medical History (Last Reviewed 08/03/19 @ 09:40 by Renan Mahoney RN) Heart murmur, systolic (Acute) Type 2 diabetes mellitus (Chronic) History of coronary artery disease (Chronic) Iron deficiency anemia (Chronic) Atrial fibrillation (Acute) CKD (chronic kidney disease) stage 3, GFR 30-59 ml/min (Chronic) Hyperglycemia due to type 2 diabetes mellitus (Acute) GI bleed (Chronic) Renal failure (Chronic) Nasal fracture (Acute) Glossitis (Acute) Gingivostomatitis (Acute) Dementia (Chronic) Low back pain (Chronic) Axillary lymphadenopathy (Acute) Localized superficial swelling, mass, or lump (Acute) Macrocytosis without anemia (Chronic) SUE (generalized anxiety disorder) (Chronic) Insomnia (Chronic) Falls (Acute) Multiple contusions (Acute) Fatigue (Chronic) Iron deficiency (Chronic) Cataract cortical, senile (Chronic) External otitis of right ear (Acute) Oral candidiasis (Acute) Hyperesthesia (Acute) Fell and bumped the upper lip and has been overly sensitive since. Atrial fibrillation CVA (cerebral vascular accident) Melanoma Removed from forehead Pneumonia Right clavicle fracture Stroke Toxic metabolic encephalopathy Afib Cardiac dysrhythmia Coronary artery disease Depression Diabetes type 2, controlled Hypertension Type 2 diabetes mellitus Pneumonia Surgical History: Surgical History (Last Reviewed 08/03/19 @ 09:40 by Renan Mahoney RN) bipap surgery H/O coronary artery bypass surgery Onset Date: ~1999 1999 triple bypass H/O tubal ligation History of back surgery Onset Date: ~2013 [place] History of cardiac catheterization Onset Date: 06/18/1605/2011, 06/18/16 History of cataract extraction with lens replacement Bilateral History of colonoscopy Onset Date: ~1999 History of left hip replacement Onset Date: 11/15/13 Dr. Gastelum History of right hip replacement Onset Date: 03/15/04 Dr. Martines History of tonsillectomy and adenoidectomy Onset Date: Unknown Family History: Family History (Last Reviewed 08/03/19 @ 09:40 by Renan Mahoney RN) Mother , @ 83 Heart disease Diabetes Cancer colon ca Father , age 70's Parkinsons disease Grandfather , maternal Ruptured appendix Grandmother , maternal Diabetes Heart disease Uncle Cancer 2 maternal- both with colon ca Heart disease 1 maternal Kidney failure 1 maternal Aunt Heart disease 2 maternal Social History: (Last Reviewed 08/03/19 @ 09:40 by Renan Mahoney RN) Social History: Marital status: household members: spouse, children number of children: 2 current occupational status: unemployed, retired Highest education level completed: some college, no degree Service: No Tobacco: Smoking Status: Never smoker Alcohol: alcohol intake: current Alcohol type: hard liquor alcohol intake frequency: holiday/special occasion Substance Use: substance use type: does not use Dietary Habits: caffeine: Yes Type: carbonated beverages Review Of Systems (GEN) - Review of Systems Generalized/Overall Review: Absent: Fever Respiratory: Present: Cough, Shortness of Breath. Absent: Wheezing Cardiac: Present: Chest Pain, Edema Abdominal: Absent: Nausea, Vomiting, Constipation, Diarrhea Genitourinary: Present: No Symptoms Reported Musculoskeletal: Present: No Symptoms Reported Neurological: Present: No Symptoms Reported Immunizations: IMMUNIZATION HX Immunizations Up to Date Yes History of Influenza Vaccine Yes Hx Pneumococcal Vaccination Yes Allergies/Adverse Reactions: Allergies Allergy/AdvReac Type Severity Reaction Status Date / Time lithium [[place]] AdvReac Mild leg pain Verified 08/03/19 05:02 dust Allergy Uncoded 08/03/19 05:02 Home Medications: HOME MEDICATIONS Acetaminophen [Tylenol] 1,000 mg PO Q6H PRN tab 01/04/19 [Last Taken Unknown] Melatonin 10 mg PO HS 01/04/19 [Last Taken 04/09/19] Multivitamin [One Daily Multivitamin] 1 ea PO DAILY 01/04/19 [Last Taken 04/09/19] Nitroglycerin [Nitrostat] 0.4 mg SUBLINGUAL Q5MIN PRN 01/04/19 [Last Taken Unknown] amLODIPine BESYLATE [Norvasc] 5 mg PO DAILY #30 tab 05/30/19 [Last Taken Unknown] apixaban 5 mg tablet 5 mg PO BID #60 tab 06/22/19 [Last Taken Unknown] atorvastatin 80 mg tablet 80 mg PO HS #30 tab 06/22/19 [Last Taken Unknown] glipizide 5 mg tablet 5 mg PO BID #60 tab 06/22/19 [Last Taken Unknown] metoprolol tartrate 25 mg tablet 25 mg PO BID #60 tab 06/22/19 [Last Taken Unknown] omeprazole 20 mg delayed release,disintegrating tablet 20 mg PO BID #60 tab. 06/22/19 [Last Taken Unknown] levothyroxine 50 mcg tablet 50 mcg PO DAILY #30 tab 07/26/19 [Last Taken Unknown] Isosorbide Mononitrate [Imdur] 30 mg PO DAILY 08/03/19 [Last Taken Unknown] Exam - Exam Vital Signs: Vital Signs - Last Taken Temp 37.1 C 08/03/19 08:29 Pulse 128 H 08/03/19 08:29 Resp 22 H 08/03/19 08:29 BP 186/91 H 08/03/19 08:29 Pulse Ox 100 08/03/19 08:29 Constitutional: Present: Alert, Cooperative, No distress, Obese Respiratory: Present: lungs clear, normal breath sounds Cardiovascular/Chest: Present: irregularly irregular Abdomen: Present: soft, nontender Extremity: Absent: lower extremity edema Eye contact: Present: cooperative, good eye contact Diagnostic Studies: Abnormal Lab Results 08/03/19 08/03/19 08/03/19 Range/Units 05:20 05:20 05:20 RBC 3.06 L (4.2-5.4) M/mm3 Hgb 9.5 L (12.5-16.0) gm/dL Hct 30.5 L (37.0-47.0) % MCHC 31.1 L (32-36) g/dl RDW 15.4 H (11.5-14.0) % Immature Gran % (Auto) 0.70 H (0.001-0.429) % Immature Gran # (Auto) 0.05 H (0.000-0.0310) K/mm3 Neutrophils % 81.0 H (42-75.0) % Lymphocytes % 8.6 L (20-51) % Lymphocytes # 0.60 L (1.5-3.5) k/mm3 D-Dimer 0.75 H (0.19-0.49) ug/mL pO2 (83.0-108.0) mmHg Plasma Sodium 143 H (130-142) mmol/L Est GFR (Non-Af Amer) 49 L (60-130) mL/min Random Glucose 200 H (70-110) mg/dL B-Natriuretic Peptide 1674 H (5-325) pg/mL Total Protein 6.0 L (6.2-8.2) gm/dL Albumin 3.0 L (3.4-5.0) gm/dl 08/03/19 Range/Units 05:29 RBC (4.2-5.4) M/mm3 Hgb (12.5-16.0) gm/dL Hct (37.0-47.0) % MCHC (32-36) g/dl RDW (11.5-14.0) % Immature Gran % (Auto) (0.001-0.429) % Immature Gran # (Auto) (0.000-0.0310) K/mm3 Neutrophils % (42-75.0) % Lymphocytes % (20-51) % Lymphocytes # (1.5-3.5) k/mm3 D-Dimer (0.19-0.49) ug/mL pO2 68.3 L (83.0-108.0) mmHg Plasma Sodium (130-142) mmol/L Est GFR (Non-Af Amer) (60-130) mL/min Random Glucose (70-110) mg/dL B-Natriuretic Peptide (5-325) pg/mL Total Protein (6.2-8.2) gm/dL Albumin (3.4-5.0) gm/dl Laboratory Results WBC 7.0 K/mm3 (4.0-10.5) 08/03/19 05:20 RBC 3.06 M/mm3 (4.2-5.4) L 08/03/19 05:20 Hgb 9.5 gm/dL (12.5-16.0) L 08/03/19 05:20 Hct 30.5 % (37.0-47.0) L 08/03/19 05:20 MCV 99.7 fl (78-100) 08/03/19 05:20 MCH 31.0 pg (27-31) 08/03/19 05:20 MCHC 31.1 g/dl (32-36) L 08/03/19 05:20 RDW 15.4 % (11.5-14.0) H 08/03/19 05:20 Plt Count 164 K/mm3 (150-450) 08/03/19 05:20 MPV 8.8 fl (8-12.5) 08/03/19 05:20 Immature Gran % (Auto) 0.70 % (0.001-0.429) H 08/03/19 05:20 Immature Gran # (Auto) 0.05 K/mm3 (0.000-0.0310) H 08/03/19 05:20 Neutrophils % 81.0 % (42-75.0) H 08/03/19 05:20 Lymphocytes % 8.6 % (20-51) L 08/03/19 05:20 Monocytes % 7.0 % (0.0-9) 08/03/19 05:20 Eosinophils % 2.1 % (0.0-3.0) 08/03/19 05:20 Basophils % 0.6 % (0.0-1.0) 08/03/19 05:20 Nucleated RBC % 0.0 k/mm3 (0-1) 08/03/19 05:20 Neutrophils # 5.7 K/mm3 (1.3-6.0) 08/03/19 05:20 Lymphocytes # 0.60 k/mm3 (1.5-3.5) L 08/03/19 05:20 Monocytes # 0.5 k/mm3 (0.0-1.0) 08/03/19 05:20 Eosinophils # 0.2 k/mm3 (0.0-0.7) 08/03/19 05:20 Absolute Basophils 0.0 k/mm3 (0.0-0.1) 08/03/19 05:20 D-Dimer 0.75 ug/mL (0.19-0.49) H 08/03/19 05:20 pCO2 32.9 mmHg (32.0-45.0) 08/03/19 05:29 pO2 68.3 mmHg (83.0-108.0) L 08/03/19 05:29 HCO3 21.9 mmol/L (21.0-28.0) 08/03/19 05:29 Total CO2 22.9 mmol/L (19.0-24.0) 08/03/19 05:29 Base Excess -1.7 mmol/L (-2.0-3.0) 08/03/19 05:29 ABG pH 7.44 (7.35-7.45) 08/03/19 05:29 ABG O2 Sat (Measured) 94.5 % (94.0-98.0) 08/03/19 05:29 Sodium 141 mmol/L (132-142) 08/03/19 05:20 Plasma Sodium 143 mmol/L (130-142) H 08/03/19 05:20 Potassium 3.9 mmol/L (3.4-4.6) 08/03/19 05:20 Chloride 105 mmol/L (97-106) 08/03/19 05:20 Carbon Dioxide 28.4 mmol/L (24-32.6) 08/03/19 05:20 Anion Gap 11.5 mmol/L (6.8-13.8) 08/03/19 05:20 BUN 17 mg/dL (3-23) 08/03/19 05:20 Creatinine 1.16 mg/dL (0.4-1.4) 08/03/19 05:20 Est GFR (Non-Af Amer) 49 mL/min (60-130) L 08/03/19 05:20 BUN/Creatinine Ratio 14.7 (9.0-21.6) 08/03/19 05:20 Random Glucose 200 mg/dL (70-110) H 08/03/19 05:20 Lactic Acid, Venous 1.1 mmol/L (0.4-2.0) 08/03/19 05:20 Calcium 8.3 mg/dL (7.9-10.9) 08/03/19 05:20 Calcium Adj for Albumin 8.8 mg/dL (8.4-10.2) 08/03/19 05:20 Total Bilirubin 0.8 mg/dL (0.0-1.1) 08/03/19 05:20 AST 20 U/L (0-48) 08/03/19 05:20 ALT 23 U/L (19-67) 08/03/19 05:20 Alkaline Phosphatase 121 U/L (50-170) 08/03/19 05:20 Troponin I Less than 0.017 ng/mL (0.00-0.10) 08/03/19 05:20 B-Natriuretic Peptide 1674 pg/mL (5-325) H 08/03/19 05:20 Total Protein 6.0 gm/dL (6.2-8.2) L 08/03/19 05:20 Albumin 3.0 gm/dl (3.4-5.0) L 08/03/19 05:20 Assessment/Plan - Assessment/Plan (1) Shortness of breath Assessment: Differential includes heart failure, tachycardia, pneumonia, PE, cardiac source. Negative COVID. Recent echo done last month showed some LVH, but did not mention heart failure. Her ejection fraction was 55 to 60%. She has diuresed with 20 mg IV Lasix, and feels much better. Her d-dimer was mildly elevated at 0.7, but they were unable to acquire the needed gauge IV to obtain a CT angiogram. However since she has been taking Eliquis as prescribed, PE is less likely, and Eliquis is the treatment. She is not requiring oxygen currently. Her vitals are elevated, but she has not taken any of her home medications. If her home meds improve her vitals, and she is able to ambulate without significant shortness of breath, can DC home potentially this evening. Her troponin was negative. Since the shortness of breath has been ongoing for days, her troponin would have been elevated on arrival. No need to trend troponins. EKG showed afib with RVR, with a HR of 146. Leads V3-V6 show 1 mm of depression, and will repeat EKG since her heart rate has improved. Problem: Acute (2) HTN (hypertension) Assessment: Her blood pressure has been elevated while she has been here, but she has not yet taken her antihypertensives today. We will recheck this after she has been given her home meds. Problem: Chronic (3) Atrial fibrillation Assessment: Heart rate was uncontrolled earlier today, which likely was contributing to her shortness of breath. Will resume her home medications for rate control, and continue her Eliquis for anticoagulation. Problem: Acute Qualifiers: Atrial fibrillation type: other persistent Qualified Code(s): I48.19 - Other persistent atrial fibrillation (4) Unstable angina Assessment: Pharmacologic stress test done last month showed "Small area of stress-induced diminished myocardial perfusion in the inferior aspect of the lateral wall." Continue home Imdur. Chest tightness improved after nitro in the ED. Problem: Chronic (5) COPD (chronic obstructive pulmonary disease) Assessment: No wheezing on exam and she is oxygenating on room air. No further intervention needed. Problem: Chronic Qualifiers: COPD type: unspecified COPD Qualified Code(s): J44.9 - Chronic obstructive pulmonary disease, unspecified (6) Renal failure Assessment: GFR 40 appears to be close to her baseline. Problem: Chronic Qualifiers: Renal failure chronicity: chronic Chronic kidney disease stage: stage 3 (moderate) Qualified Code(s): N18.3 - Chronic kidney disease, stage 3 (moderate) (7) Anticoagulated by anticoagulation treatment Problem: Chronic
[2019-08-03] MEDS ORDERED: ACETAMINOPHEN 500 MG TABLET PO PRN (09:14)
[2019-08-03] MEDS ORDERED: METOPROLOL TARTRATE 25 MG TABLET PO SCH (09:15)
[2019-08-03] MEDS ORDERED: APIXABAN 5 MG TABLET PO SCH (09:15)
[2019-08-03] MEDS ORDERED: ISOSORBIDE MONONITRATE 30 MG TAB.SR.24H PO SCH (09:15)
[2019-08-03] MEDS ORDERED: glipiZIDE 5 MG TABLET PO SCH (09:30)
[2019-08-03] MEDS ORDERED: LEVOTHYROXINE SODIUM 50 MCG TABLET PO SCH (09:30)
[2019-08-03] MEDS ORDERED: amLODIPine BESYLATE 5 MG TABLET PO SCH (09:30)
--- NOTE | 2019-08-03 16:45 | DS ---
(1) Shortness of breath Problem: Resolved (2) HTN (hypertension) Problem: Chronic (3) Atrial fibrillation Problem: Chronic Qualifiers: Atrial fibrillation type: other persistent Qualified Code(s): I48.19 - Other persistent atrial fibrillation (4) Unstable angina Problem: Chronic (5) COPD (chronic obstructive pulmonary disease) Problem: Chronic Qualifiers: COPD type: unspecified COPD Qualified Code(s): J44.9 - Chronic obstructive pulmonary disease, unspecified (6) Renal failure Problem: Chronic Qualifiers: Renal failure chronicity: chronic Chronic kidney disease stage: stage 3 (moderate) Qualified Code(s): N18.3 - Chronic kidney disease, stage 3 (moderate) (7) Anticoagulated by anticoagulation treatment Problem: Chronic Date of Discharge:: 08/03/19 Hospital Course: Patient with past medical history of A. fib, coronary artery disease with previous stent placement, previous CVA, diabetes, heart failure presents with a few days of shortness of breath. She got an inhaler yesterday which did not help. She was worried about having COVID, so she came to the ED early this morning. She denies contacts with COVID positive patients, and has limited her community activity. She also had some left-sided chest tightness and felt like she was almost gurgling. She had some foot swelling also. In the ED, her BNP is elevated at 1674. EKG showed A. fib with RVR with a heart rate of 146. White blood cell count not elevated at 7.0, lactate not elevated at 1.1. She was given 20 mg of IV Lasix, and has diuresed 1300 cc in the ED. her heart rate improved to the low 100s by the time she left the ER. On my exam, she reports improvement in her chest tightness and breathing. She is not requiring oxygen. Recent documented vitals include blood pressure is elevated to 186/91, heart rate elevated at 128, respiratory rate elevated at 22, however she has not taken any of her home medicines yet this morning. She had significant SOB with ambulation in the ED. She was not in any distress on my admission exam, and she was no longer tachycardic. She reports having been prescribed lasix in the past, but not currently. Differential for her shortness of breath includes heart failure, tachycardia, pneumonia, PE, cardiac source. Recent echo done last month showed some LVH, but did not mention heart failure. Her ejection fraction was 55 to 60%. Her d- dimer was mildly elevated at 0.7, but they were unable to acquire the needed gauge IV to obtain a CT angiogram. However, since she has been taking Eliquis as prescribed, PE is less likely, and Eliquis is the treatment. She is not requiring oxygen currently. Her vitals are elevated, but she has not taken any of her home medications. She diuresed well with one dose of 20 mg IV lasix. COVID was negative. Repeat EKG showed a HR of 88. Her SOB resolved, and she could ambulate to the bathroom. She felt comfortable leaving on the evening of her admission, with a script for prn lasix. Procedures Performed: none Results and Findings: Lab Pending Results 08/03/19 05:20: Sodium 141, Plasma Sodium 143 H, Potassium 3.9, Chloride 105, Carbon Dioxide 28.4, Anion Gap 11.5, BUN 17, Creatinine 1.16, Est GFR (Non-Af Amer) 49 L, BUN/Creatinine Ratio 14.7, Random Glucose 200 H, Calcium 8.3, Calcium Adj for Albumin 8.8, Total Bilirubin 0.8, AST 20, ALT 23, Alkaline Phosphatase 121, Troponin I Less than 0.017, B-Natriuretic Peptide 1674 H, Total Protein 6.0 L, Albumin 3.0 L 08/03/19 05:20: WBC 7.0, RBC 3.06 L, Hgb 9.5 L, Hct 30.5 L, MCV 99.7, MCH 31.0, MCHC 31.1 L, RDW 15.4 H, Plt Count 164, MPV 8.8, Immature Gran % (Auto) 0.70 H, Immature Gran # (Auto) 0.05 H, Neutrophils % 81.0 H, Lymphocytes % 8.6 L, Monocytes % 7.0, Eosinophils % 2.1, Basophils % 0.6, Nucleated RBC % 0.0, Neutrophils # 5.7, Lymphocytes # 0.60 L, Monocytes # 0.5, Eosinophils # 0.2, Absolute Basophils 0.0 08/03/19 05:20: D-Dimer 0.75 H 08/03/19 05:20: Lactic Acid, Venous 1.1 08/03/19 05:29: pCO2 32.9, pO2 68.3 L, HCO3 21.9, Total CO2 22.9, Base Excess - 1.7, ABG pH 7.44, ABG O2 Sat (Measured) 94.5 08/03/19 10:15: SARS-CoV-2 (PCR) Not detected Discharge Location: Home Disposition: Home self-care Condition: Fair Discharge Activity: Activity as tolerated Discharge Diet: Low salt Referrals: Man Cruz DO [Primary Care Provider] - One Week Prescriptions (Any new or edited meds): Furosemide 20 mg PO DAILY PRN #60 tab PRN Reason: Edema Transmission Status: Pending to [facility] Complete Home Medications List: Complete Home Medication List: Acetaminophen [Tylenol] 1,000 mg PO Q6H PRN tab 01/04/19 Melatonin 10 mg PO HS 01/04/19 Multivitamin [One Daily Multivitamin] 1 ea PO DAILY 01/04/19 Nitroglycerin [Nitrostat] 0.4 mg SUBLINGUAL Q5MIN PRN 01/04/19 amLODIPine BESYLATE [Norvasc] 5 mg PO DAILY #30 tab 05/30/19 apixaban 5 mg tablet 5 mg PO BID #60 tab 06/22/19 atorvastatin 80 mg tablet 80 mg PO HS #30 tab 06/22/19 glipizide 5 mg tablet 5 mg PO BID #60 tab 06/22/19 metoprolol tartrate 25 mg tablet 25 mg PO BID #60 tab 06/22/19 omeprazole 20 mg delayed release,disintegrating tablet 20 mg PO BID #60 tab. 06/22/19 levothyroxine 50 mcg tablet 50 mcg PO DAILY #30 tab 07/26/19 Furosemide 20 mg PO DAILY PRN #60 tab 08/03/19 Isosorbide Mononitrate [Imdur] 30 mg PO DAILY 08/03/19
[2019-08-03 18:04] VITALS: BP 156/90
[2019-08-03] MEDS ORDERED: MELATONIN 3,000 MCG TABLET PO SCH (21:00)
[2019-08-03] MEDS ORDERED: PANTOPRAZOLE SODIUM 20 MG TABLET.DR PO SCH (21:00)
[2019-08-03] MEDS ORDERED: ROSUVASTATIN CALCIUM 20 MG TABLET PO SCH (21:00)
== END 2019-08-03 18:30 | disposition home or self-care (01) ==
LOC: ER 04:54 → MS 04:54
PROVIDERS: ADMIT Family Medicine; ATTEND Family Medicine
DX: I48.19 Other persistent atrial fibrillation; I50.9 Heart failure, unspecified; Z79.01 Long term (current) use of anticoagulants; N18.3 Chronic kidney disease, stage 3 (moderate); J44.9 Chronic obstructive pulmonary disease, unspecified; E11.22 Type 2 diabetes mellitus with diabetic chronic kidney disease; I13.0 Hypertensive heart and chronic kidney disease with heart failure and stage 1 through stage 4 chronic kidney disease, or unspecified chronic kidney disease; I25.10 Atherosclerotic heart disease of native coronary artery without angina pectoris
CPT/HCPCS: 36415; 36600; 71010; 71045; 80053; 82803; 83519; 83605; 83880; 84484; 85025; 85379; 93005; 96374; 99284; 99285

== ENCOUNTER 2020-01-17 09:50 | Observation (INO) ==
[2020-01-17] MEDS ORDERED: NORMAL SALINE 500 ML IV PRN (10:27)
[2020-01-17] MEDS ORDERED: METOPROLOL TARTRATE 1 MG/ML AMPUL IV ONE ×2 (10:36→12:23)
--- NOTE | 2020-01-17 10:39 | ERNOTE ---
Chest Pain/Cardiac HPI Date of Service: 01/17/20 Chief Complaint: Dyspnea Time Seen by Provider: 01/17/20 10:09 Immunizations: IMMUNIZATION HX Immunizations Up to Date Yes History of Influenza Vaccine Yes Hx Pneumococcal Vaccination No Allergies/Adverse Reactions: Allergies lithium [[place]] Adverse Reaction (Mild, Verified 01/10/20 12:45) leg pain dust Allergy (Uncoded 01/10/20 12:45) Home Medications: HOME MEDICATIONS Acetaminophen [Tylenol] 1,000 mg PO Q6H PRN tab 01/04/19 [Last Taken Unknown] Melatonin 10 mg PO HS 01/04/19 [Last Taken 04/09/19] Multivitamin [One Daily Multivitamin] 1 ea PO DAILY 01/04/19 [Last Taken 04/09/19] amLODIPine BESYLATE [Norvasc] 5 mg PO DAILY #30 tab 05/30/19 [Last Taken Unknown] Isosorbide Mononitrate [Imdur] 30 mg PO DAILY 08/03/19 [Last Taken Unknown] Dexlansoprazole [Dexilant] 30 mg PO DAILY #30 cap 11/03/19 [Last Taken Unknown] lidocaine HCl 2 % mucosal jelly 3 ml MUCOUS MEMBRANE 4-6XD PRN #30 ml 11/10/19 [Last Taken Unknown] furosemide 20 mg tablet 20 mg PO PRN #30 tab 11/19/19 [Last Taken Unknown] Dicyclomine HCl [Bentyl] 10 mg PO BID PRN #5 cap 11/30/19 [Last Taken Unknown] pantoprazole 20 mg tablet,delayed release 20 mg PO BID #60 tab 12/02/19 [Last Taken Unknown] sucralfate 1 gram tablet 1 g PO ACHS #60 tab 12/02/19 [Last Taken Unknown] magnesium citrate 150 ml PO ONCE #296 ml 12/07/19 [Last Taken Unknown] sennosides 8.6 mg-docusate sodium 50 mg tablet 1 tab-cap PO HS #30 tab 12/07/19 [Last Taken Unknown] Furosemide [Lasix] 20 mg PO DAILY #30 tab 12/16/19 [Last Taken Unknown] Atorvastatin Calcium [Lipitor] 80 mg PO HS 12/27/19 [Last Taken Unknown] Levothyroxine Sodium [Synthroid] 75 mcg PO DAILY 12/27/19 [Last Taken Unknown] Metoprolol Tartrate [Lopressor] 25 mg PO BID 12/27/19 [Last Taken Unknown] Polyethylene Glycol 3350 [Miralax] 17 gm PO DAILY #1 bottle 12/27/19 [Last Taken Unknown] glipiZIDE [Glipizide] 5 mg PO BID 12/27/19 [Last Taken Unknown] Ondansetron [Zofran Odt] 4 mg PO Q6H PRN #20 tab 01/03/20 [Last Taken Unknown] power mobility device and 2 batteries 1 b .ROUTE .MEDSUPPLY 01/03/20 [Last Taken Unknown] Nabumetone 500 mg PO BID #10 tab 01/06/20 [Last Taken Unknown] Cyclobenzaprine HCl [Flexeril] 10 mg PO TID PRN #10 tab 01/10/20 [Last Taken Unknown] nitroglycerin 0.4 mg sublingual tablet See Rx Instructions .ROUTE .COMPLEX #25 unknown measurement unit code: tablet 01/10/20 [Last Taken Unknown] Pain Score #1 Pain Score: 0 Narrative: The patient is a 69 year old female who presents for chest pain and dyspnea which has been present since 99. There are associated symptoms of intermittent nausea and fatigue. The patient denies pain upon exam. There are no alleviating factors. There are aggravating factors of activity. Previous treatments have included: N[employer] with resolution of pain. The past medical history includes: DM, AFib, CVA, depression, HTN, CAD, anemia, anxiety, CKD and CHF. The social history is negative. The patient has had no known ill contacts. Patient states she has had previous COVID test which was negative > 2 weeks ago. Patient denies known exposure to persons with COVID. Patient states this am she was awoke with chest pain and increased shortness of breath, patient states she took 3 N[employer] which resolved her chest pain but continues to have increased fatigue and dyspnea with minimal exertion. Review of Systems - Review of Systems Constitutional: Present: fatigue. Absent: fever, chills EYE: Present: no symptoms reported ENT: Present: no symptoms reported, other - denies loss of taste or smell. Absent: ear pain, nasal drainage, sore throat Respiratory: Present: shortness of breath. Absent: cough Cardiology: Present: chest pain Gastrointestinal/Abdominal: Present: nausea. Absent: vomiting, diarrhea, abdominal pain Genitourinary: Present: no symptoms reported. Absent: decreased urinary output Musculoskeletal: Present: no symptoms reported. Absent: back pain Skin: Present: no symptoms reported. Absent: rash Neurological: Present: dizziness/light-headedness, weakness All Other Systems: All systems neg except as marked Medical History (Last Reviewed 01/17/20 @ 10:28 by RADHA Serrano) CHF (congestive heart failure) (Chronic) Chronic insomnia (Chronic) Heart murmur, systolic (Chronic) Grade 4/6 systolic murmur at the right upper sternal border Type 2 diabetes mellitus (Chronic) Atrial fibrillation with rapid ventricular response (Acute) History of coronary artery disease (Chronic) Iron deficiency anemia (Chronic) Atrial fibrillation (Chronic) CKD (chronic kidney disease) stage 3, GFR 30-59 ml/min (Chronic) Hyperglycemia due to type 2 diabetes mellitus (Acute) Essential (primary) hypertension (Chronic) GI bleed (Chronic) Renal failure (Chronic) Nasal fracture (Acute) Glossitis (Acute) Gingivostomatitis (Acute) Dementia (Chronic) Low back pain (Chronic) Axillary lymphadenopathy (Acute) Localized superficial swelling, mass, or lump (Acute) Macrocytosis without anemia (Chronic) SUE (generalized anxiety disorder) (Chronic) Insomnia (Chronic) Falls (Acute) Multiple contusions (Acute) Fatigue (Chronic) Iron deficiency (Chronic) Cataract cortical, senile (Chronic) External otitis of right ear (Acute) Oral candidiasis (Acute) Hyperesthesia (Acute) Fell and bumped the upper lip and has been overly sensitive since. Atrial fibrillation CVA (cerebral vascular accident) Melanoma Removed from forehead Pneumonia Right clavicle fracture Stroke Toxic metabolic encephalopathy Afib Cardiac dysrhythmia Coronary artery disease Depression Diabetes type 2, controlled Hypertension Type 2 diabetes mellitus Pneumonia Surgical History: Surgical History (Last Reviewed 01/17/20 @ 10:28 by RADHA Serrano) History of esophagogastroduodenoscopy (EGD) Onset Date: 11/02/19 11/02/19 [place] bipap surgery H/O coronary artery bypass surgery Onset Date: ~1999 1999 triple bypass H/O tubal ligation History of back surgery Onset Date: ~2013 [place] History of cardiac catheterization Onset Date: 06/18/1605/2011, 06/18/16 History of cataract extraction with lens replacement Bilateral History of colonoscopy Onset Date: ~1999 History of left hip replacement Onset Date: 11/15/13 Dr. Gastelum History of right hip replacement Onset Date: 03/15/04 Dr. Martines History of tonsillectomy and adenoidectomy Onset Date: Unknown Family History: Family History (Last Reviewed 01/17/20 @ 10:29 by RADHA Serrano) Mother , @ 83 Cancer colon ca Diabetes Heart disease Father , age 70's Parkinsons disease Grandfather , maternal Ruptured appendix Grandmother , maternal Heart disease Diabetes Uncle Kidney failure 1 maternal Heart disease 1 maternal Cancer 2 maternal- both with colon ca Aunt Heart disease 2 maternal Social History: (Last Reviewed 01/17/20 @ 10:29 by RADHA Serrano) Social History: Marital status: household members: spouse number of children: 2 current occupational status: unemployed Highest level of school completed/degree received: some college, no degree Service: No Tobacco: Smoking Status: Never smoker Alcohol: alcohol intake: current Alcohol type: hard liquor alcohol intake frequency: holiday/special occasion Substance Use: substance use type: does not use Dietary Habits: caffeine: Yes Type: carbonated beverages Physical Exam - Physical Exam General Appearance: Present: wd/wn, alert, mild distress, sleeping/easy to arouse Head Exam: Present: normal inspection, no evidence of injury Eye Exam: Normal inspection: bilateral Ears, Nose, Throat: Present: normal except -, dry mucous membranes Neck: Present: normal inspection, nontender Respiratory: Present: no respiratory distress, no accessory muscle use, chest nontender, lungs clear, decreased breath sounds - right base Cardiovascular/Chest: Present: tachycardia, irregularly irregular, JVD Gastrointestinal/Abdominal: Present: normal bowel sounds, nontender, nondistended, soft, no organomegaly Extremity Exam: Present: extremity edema - trace bilateral lower extremities Neurological Exam: Present: alert, oriented, normal mood/affect, no motor/sensory deficits Skin Exam: Present: normal color, warm/dry Progress - Date and Time Seen: Date and Time: 01/17/20 11:07 Patient was placed on O2 1l/nc due to SpO2 88% RA. Administer IV Lopressor to aid with rate control as well as HTN. Patient did not take her am meds. 01/17/20 11:15 Patient having symptomatic anemia, Hgb 7.7. Patient was previously tested and showed anemia on 12/31-01/03/20 and had reported vomiting with history of gastritis and was instructed to f/u with PCP. Patient has not had follow up with PCP noted on visits. 01/17/20 12:25 Patient has history of EGD with chronic bleeding ulcers associated with chronic anemia. Patient denies any recent vomiting or diarrhea with noted blood. Discussed results of testing with and will proceed with CTA due to elevated ddimer along with reported symptoms of dyspnea, tachycardia and hypoxia. Do not want to treat patient with prophylaxis anticoagulation due to history of GI bleed. Will obtain CTA in ER prior to admission. 01/17/20 14:09 CTA negative. Message left to discuss with , awaiting return call. 01/17/20 14:16 Will admit to for CHF, wishes to withhold transfusion of blood since patient has significant history of chronic anemia and Hgb is slightly better then previous labs >1 week ago with no noted active bleeding. Will cancel blood transfusion, states will repeat labs in am to determine need. Patient updated regarding plan of care for admission and continued diuresis. - Results and Orders Patient's Lab Results:: I have reviewed the patient's lab results. - Vital Signs Patient's Vital Signs:: I have reviewed the patient's vital signs. - EKG EKG #1 EKG: atrial fibrillation - RVR rate 124, ST depression - slight increase to previous ST depression noted in I, II, V3, V4, V5 EKG read: Reviewed by me EKG Comments: Reviewed with . - X-Ray X-Ray #1 X-Ray: chest Interpretation: Reviewed by me X-ray Comments: IMPRESSION: STABLE EXAM AGAIN SHOWING CARDIOMEGALY. NO ACUTE CARDIOPULMONARY DISEASE OTHERWISE IDENTIFIED. Electronically signed by Harsha Calderon M.D.. - Progress/Reassessment Progress:: Improved Departure Clinical Impression: Symptomatic anemia Acute on chronic congestive heart failure Qualifiers: Heart failure type: unspecified Qualified Code(s): I50.9 - Heart failure, unspecified - Departure Disposition: Still a patient Condition: Stable
[2020-01-17 11:01] LABS: Urine Bilirubin Negative (NEGATIVE); Urine Blood Negative /ul (NEGATIVE); Urine Ketone 5 mg/dL (NEGATIVE); Urine Nitrite Negative (NEGATIVE); Urine Protein 100 mg/dL (NEGATIVE); Urine Specific Gravity 1.025 SP.GR. (1.005-1.010); Urine Urobilinogen Normal (NORMAL)
[2020-01-17 11:07] LABS: Hematocrit 28.1 % (37.0-47.0); Mean Cell Volume 78.7 fl (78-100); Mean Corpuscular Hemoglobin 21.6 pg (27-31); Mean Corpuscular Hgb Conc 27.4 g/dl (32-36); Mean Platelet Volume 9.7 fl (8-12.5); Neutrophil # 3.9 K/mm3 (1.3-6.0); Neutrophil % 76.2 % (42-75.0); Platelet Count 230 K/mm3 (150-450); Red Blood Count 3.57 M/mm3 (4.2-5.4); Red Cell Distribution Width 20.3 % (11.5-14.0); White Blood Count 5.1 K/mm3 (4.0-10.5)
[2020-01-17 11:09] LABS: Urine Appearance Slightly Cloudy (CLEAR); Urine Bacteria None Seen; Urine Color Yellow; Urine Mucus Few - 1+; Urine RBC None Seen /hpf (0-5); Urine WBC 0-5 /hpf (0-5)
[2020-01-17 11:10] LABS: Prothrombin Time (Patient) 11.3 Seconds (9.1-10.7)
[2020-01-17 11:11] LABS: Hemoglobin 7.7 gm/dL (12.5-16.0)
[2020-01-17 11:12] LABS: INR 1.15 INR (0.92-1.08); Partial Thrombolplastin Time 26.1 Seconds (24-32)
[2020-01-17] MEDS ORDERED: FUROSEMIDE 10 MG/ML VIAL IV ONE ×2 (11:17→12:14)
[2020-01-17 11:25] LABS: Albumin * 3.6 gm/dl (3.4-5.0); Anion Gap 15.8 mmol/L (6.8-13.8); BUN/Creatinine Ratio 13.1 (9.0-21.6); Bilirubin, Total 0.7 mg/dL (0.0-1.1); Ca. Corrected For Albumin 8.9 mg/dL (8.4-10.2); Calcium * 8.9 mg/dL (7.9-10.9); Carbon Dioxide 26.2 mmol/L (24-32.6); Total Protein 6.5 gm/dL (6.2-8.2); Troponin I 0.081 ng/mL (0.00-0.10)
[2020-01-17] MEDS ORDERED: METOPROLOL TARTRATE 25 MG TABLET PO ONE (12:23)
[2020-01-17] MEDS ORDERED: ACETAMINOPHEN 325 MG TABLET PO ONE (12:25)
[2020-01-17] MEDS ORDERED: ACETAMINOPHEN 500 MG TABLET PO PRN (18:15)
[2020-01-17] MEDS ORDERED: ONDANSETRON 4 MG TAB.RAPDIS PO PRN (18:17)
[2020-01-17] MEDS ORDERED: CYCLOBENZAPRINE HCL 10 MG TABLET PO PRN (18:17)
[2020-01-17] MEDS ORDERED: DICYCLOMINE HCL 10 MG CAPSULE PO PRN (18:17)
[2020-01-17] MEDS ORDERED: NITROGLYCERIN 0.4 MG/TAB BTL SL PRN (18:30)
[2020-01-17] MEDS: amLODIPine BESYLATE 5 MG TABLET PO SCH (18:53)
[2020-01-17] MEDS: FUROSEMIDE 10 MG/ML VIAL IV SCH (18:53)
--- NOTE | 2020-01-17 19:04 | HP ---
Chief Complaint - Chief Complaint Date of Service: 01/17/20 Time of Service: 18:48 Chief Complaint: I had chest pain and shortness of breath since last night History of Present Illness: 69-year-old female with past medical history of CHF, coronary artery disease, atrial fibrillation on anticoagulation, type 2 diabetes, CKD 3, chronic anemia, chronic gastric ulcers, was evaluated in the ER for dyspnea that started yesterday evening shortly after the patient went to bed. The patient has been hospitalized multiple times before for decompensation of her CHF and recurrent symptomatic anemia that required blood transfusions so she is very well-known here [facility]. Like her previous hospitalization the patient's symptoms started with worsening shortness of breath and subsequent chest pain. She reports taking multiple sublingual nitroglycerin which usually helps with her symptoms but this time her condition does not respond. Her shortness of breath gradually got worse and subsequently she developed a retrosternal pressure-like pain that he radiated down her left arm and she also reported numbness down her arm. The patient reports taking all of her routine medications as prescribed but did not do so this morning before being picked up by the ambulance. She also reports not feeling well overall lately, she says 2 days ago she vomited multiple times but denied hematemesis. She is normally on 20 mg of Lasix daily but says despite this medication she has been gradually more and more short of breath. While in the ER she was found to have a decreased oxygen saturation so she was placed on supplemental oxygen which is new for her, she was also treated with multiple doses of IV Lasix in an effort to diurese her and decrease the preload. Since receiving those treatments the patient reports feeling better, she reports less shortness of breath and resolution of her chest pain. Cardiac troponins and EKGs were negative, she did however have a positive D-dimer which was followed up with a CTA which was negative for PE. The only significant finding on the CTA was trace pleural effusions bilaterally. Medical History (Last Reviewed 01/17/20 @ 10:37 by Guerline Meredith RN) CHF (congestive heart failure) (Chronic) Chronic insomnia (Chronic) Heart murmur, systolic (Chronic) Grade 4/6 systolic murmur at the right upper sternal border Type 2 diabetes mellitus (Chronic) Atrial fibrillation with rapid ventricular response (Acute) History of coronary artery disease (Chronic) Iron deficiency anemia (Chronic) Atrial fibrillation (Chronic) CKD (chronic kidney disease) stage 3, GFR 30-59 ml/min (Chronic) Hyperglycemia due to type 2 diabetes mellitus (Acute) Essential (primary) hypertension (Chronic) GI bleed (Chronic) Renal failure (Chronic) Nasal fracture (Acute) Glossitis (Acute) Gingivostomatitis (Acute) Dementia (Chronic) Low back pain (Chronic) Axillary lymphadenopathy (Acute) Localized superficial swelling, mass, or lump (Acute) Macrocytosis without anemia (Chronic) SUE (generalized anxiety disorder) (Chronic) Insomnia (Chronic) Falls (Acute) Multiple contusions (Acute) Fatigue (Chronic) Iron deficiency (Chronic) Cataract cortical, senile (Chronic) External otitis of right ear (Acute) Oral candidiasis (Acute) Hyperesthesia (Acute) Fell and bumped the upper lip and has been overly sensitive since. Atrial fibrillation CVA (cerebral vascular accident) Melanoma Removed from forehead Pneumonia Right clavicle fracture Stroke Toxic metabolic encephalopathy Afib Cardiac dysrhythmia Coronary artery disease Depression Diabetes type 2, controlled Hypertension Type 2 diabetes mellitus Pneumonia Surgical History: Surgical History (Last Reviewed 01/17/20 @ 10:37 by Guerline Meredith RN) History of esophagogastroduodenoscopy (EGD) Onset Date: 11/02/19 11/02/19 Analiliaan bipap surgery H/O coronary artery bypass surgery Onset Date: ~1999 1999 triple bypass H/O tubal ligation History of back surgery Onset Date: ~2013 Nirav History of cardiac catheterization Onset Date: 06/18/1605/2011, 06/18/16 History of cataract extraction with lens replacement Bilateral History of colonoscopy Onset Date: ~1999 History of left hip replacement Onset Date: 11/15/13 Dr. Gastelum History of right hip replacement Onset Date: 03/15/04 Dr. Martines History of tonsillectomy and adenoidectomy Onset Date: Unknown Family History: Family History (Last Reviewed 01/17/20 @ 10:37 by Guerline Meredith RN) Mother , @ 83 Heart disease Diabetes Cancer colon ca Father , age 70's Parkinsons disease Grandfather , maternal Ruptured appendix Grandmother , maternal Diabetes Heart disease Uncle Cancer 2 maternal- both with colon ca Heart disease 1 maternal Kidney failure 1 maternal Aunt Heart disease 2 maternal Social History: (Last Reviewed 01/17/20 @ 10:37 by Guerline Meredith RN) Social History: Marital status: household members: spouse number of children: 2 current occupational status: unemployed Highest level of school completed/degree received: some college, no degree Service: No Tobacco: Smoking Status: Never smoker Alcohol: alcohol intake: current Alcohol type: hard liquor alcohol intake frequency: holiday/special occasion Substance Use: substance use type: does not use Dietary Habits: caffeine: Yes Type: carbonated beverages Peds Patient Hx - Developmental: No Pertinent Hx Peds Patient Hx - Medical: No Pertinent Hx Peds Patient Hx - Cardiac/Respiratory: No Pertinent Hx Peds Patient Hx - Surgical: No Surgical History Patient History - Cancer: No Hx of Cancer Review Of Systems (GEN) - Review of Systems Generalized/Overall Review: Present: No Symptoms Reported EENTM: Present: No Symptoms Reported Respiratory: Present: Shortness of Breath Cardiac: Present: Chest Pain Abdominal: Present: Vomiting Genitourinary: Present: No Symptoms Reported Musculoskeletal: Present: No Symptoms Reported Neurological: Present: No Symptoms Reported Skin: Present: No Symptoms Reported Endocrine: Present: No Symptoms Reported Immunizations: IMMUNIZATION HX Immunizations Up to Date Yes History of Influenza Vaccine Yes Hx Pneumococcal Vaccination No Allergies/Adverse Reactions: Allergies Allergy/AdvReac Type Severity Reaction Status Date / Time lithium [[place]] AdvReac Mild leg pain Verified 01/10/20 12:45 dust Allergy Uncoded 01/10/20 12:45 Home Medications: HOME MEDICATIONS Acetaminophen [Tylenol] 1,000 mg PO Q6H PRN tab 01/04/19 [Last Taken Unknown] Melatonin 10 mg PO HS 01/04/19 [Last Taken 04/09/19] Multivitamin [One Daily Multivitamin] 1 ea PO DAILY 01/04/19 [Last Taken 04/09/19] amLODIPine BESYLATE [Norvasc] 5 mg PO DAILY #30 tab 05/30/19 [Last Taken Unknown] Isosorbide Mononitrate [Imdur] 30 mg PO DAILY 08/03/19 [Last Taken Unknown] Dexlansoprazole [Dexilant] 30 mg PO DAILY #30 cap 11/03/19 [Last Taken Unknown] lidocaine HCl 2 % mucosal jelly 3 ml MUCOUS MEMBRANE 4-6XD PRN #30 ml 11/10/19 [Last Taken Unknown] furosemide 20 mg tablet 20 mg PO PRN #30 tab 11/19/19 [Last Taken Unknown] Dicyclomine HCl [Bentyl] 10 mg PO BID PRN #5 cap 11/30/19 [Last Taken Unknown] pantoprazole 20 mg tablet,delayed release 20 mg PO BID #60 tab 12/02/19 [Last Taken Unknown] sucralfate 1 gram tablet 1 g PO ACHS #60 tab 12/02/19 [Last Taken Unknown] magnesium citrate 150 ml PO ONCE #296 ml 12/07/19 [Last Taken Unknown] sennosides 8.6 mg-docusate sodium 50 mg tablet 1 tab-cap PO HS #30 tab 12/07/19 [Last Taken Unknown] Furosemide [Lasix] 20 mg PO DAILY #30 tab 12/16/19 [Last Taken Unknown] Atorvastatin Calcium [Lipitor] 80 mg PO HS 12/27/19 [Last Taken Unknown] Levothyroxine Sodium [Synthroid] 75 mcg PO DAILY 12/27/19 [Last Taken Unknown] Metoprolol Tartrate [Lopressor] 25 mg PO BID 12/27/19 [Last Taken Unknown] Polyethylene Glycol 3350 [Miralax] 17 gm PO DAILY #1 bottle 12/27/19 [Last Taken Unknown] glipiZIDE [Glipizide] 5 mg PO BID 12/27/19 [Last Taken Unknown] Ondansetron [Zofran Odt] 4 mg PO Q6H PRN #20 tab 01/03/20 [Last Taken Unknown] power mobility device and 2 batteries 1 b .ROUTE .MEDSUPPLY 01/03/20 [Last Taken Unknown] Nabumetone 500 mg PO BID #10 tab 01/06/20 [Last Taken Unknown] Cyclobenzaprine HCl [Flexeril] 10 mg PO TID PRN #10 tab 01/10/20 [Last Taken Unknown] nitroglycerin 0.4 mg sublingual tablet See Rx Instructions .ROUTE .COMPLEX #25 unknown measurement unit code: tablet 01/10/20 [Last Taken Unknown] Exam - Exam Vital Signs: Vital Signs - Last Taken Temp 36.6 C 01/17/20 17:46 Pulse 88 01/17/20 17:46 Resp 18 01/17/20 17:46 BP 155/90 H 01/17/20 17:46 Pulse Ox 97 01/17/20 17:46 Constitutional: Present: Alert, Oriented x3, Cooperative, Well developed, Well nourished, No distress, Elderly, Morbidly obese ENT Exam: Present: normal ENT inspection, hearing grossly normal, pharynx normal, TMs normal Eye Exam: bilateral eye: normal inspection, PERRL, EOMI Neck: Present: non-tender, full range of motion, supple, normal inspection, trachea midline Back Exam: Present: normal inspection, no CVA tenderness, no vertebral tenderness Breasts: Present: Exam deferred, Nontender Respiratory: Present: chest non-tender, no respiratory distress, no accessory muscle use, decreased breath sounds - Decreased breath sounds at bases Cardiovascular/Chest: Present: normal peripheral pulses, no chest tenderness, no gallop, systolic murmur, irregularly irregular, edema - Bilateral 1+ pedal edema Abdomen: Present: Normal bowel sounds, soft, nontender, nondistended, no rebound tenderness, no hepatospenomegaly, no masses, obese /Rectal: Present: Exam deferred Extremity: Present: normal range of motion, non-tender, normal inspection, no calf tenderness, normal capillary refill, pelvis stable, pedal edema - Bilateral 1+ pedal edema Skin Exam: Present: normal color, warm/dry, no cyanosis Lymphatic: Present: no adenopathy Neurologic: Present: machine fitter II-XII nml as tested, no motor/sensory deficits, alert, normal mood/affect, oriented x 3 Appearance: Present: appropriate appearance, appropriate insight, neat, no memory impairment Eye contact: Present: cooperative, good eye contact, normal speech Thoughts: Present: normal thought pattern, no apparent hallucination Diagnostic Studies: Abnormal Lab Results 01/17/20 01/17/20 01/17/20 Range/Units 10:15 10:15 10:15 RBC 3.57 L (4.2-5.4) M/mm3 Hgb 7.7 L* (12.5-16.0) gm/dL Hct 28.1 L (37.0-47.0) % MCH 21.6 L (27-31) pg MCHC 27.4 L (32-36) g/dl RDW 20.3 H (11.5-14.0) % Immature Gran % (Auto) 0.60 H (0.001-0.429) % Neutrophils % 76.2 H (42-75.0) % Lymphocytes % 11.4 L (20-51) % Eosinophils % 4.3 H (0.0-3.0) % Lymphocytes # 0.58 L (1.5-3.5) k/mm3 PT 11.3 H (9.1-10.7) Seconds INR (Anticoag Therapy) 1.15 H (0.92-1.08) INR D-Dimer (0.19-0.49) ug/mL Anion Gap 15.8 H (6.8-13.8) mmol/L Est GFR (Non-Af Amer) 41 L (60-130) mL/min Random Glucose 176 H (70-110) mg/dL B-Natriuretic Peptide 3740 H (5-325) pg/mL Procalcitonin (0.05-0.50) ng/mL Urine Protein (NEGATIVE) mg/dL Prot Sulfosalicylic Acd (0) mg/dL Ur Epithelial Cells (0-5) /hpf Urine Mucus (NONE) Crossmatch 01/17/20 01/17/20 01/17/20 Range/Units 10:15 10:15 10:15 RBC (4.2-5.4) M/mm3 Hgb (12.5-16.0) gm/dL Hct (37.0-47.0) % MCH (27-31) pg MCHC (32-36) g/dl RDW (11.5-14.0) % Immature Gran % (Auto) (0.001-0.429) % Neutrophils % (42-75.0) % Lymphocytes % (20-51) % Eosinophils % (0.0-3.0) % Lymphocytes # (1.5-3.5) k/mm3 PT (9.1-10.7) Seconds INR (Anticoag Therapy) (0.92-1.08) INR D-Dimer 1.11 H (0.19-0.49) ug/mL Anion Gap (6.8-13.8) mmol/L Est GFR (Non-Af Amer) (60-130) mL/min Random Glucose (70-110) mg/dL B-Natriuretic Peptide (5-325) pg/mL Procalcitonin Less than 0.05 L (0.05-0.50) ng/mL Urine Protein 100 H (NEGATIVE) mg/dL Prot Sulfosalicylic Acd 3+ H (0) mg/dL Ur Epithelial Cells 5-10 H (0-5) /hpf Urine Mucus Few - 1+ H (NONE) Crossmatch 01/17/20 Range/Units 12:08 RBC (4.2-5.4) M/mm3 Hgb (12.5-16.0) gm/dL Hct (37.0-47.0) % MCH (27-31) pg MCHC (32-36) g/dl RDW (11.5-14.0) % Immature Gran % (Auto) (0.001-0.429) % Neutrophils % (42-75.0) % Lymphocytes % (20-51) % Eosinophils % (0.0-3.0) % Lymphocytes # (1.5-3.5) k/mm3 PT (9.1-10.7) Seconds INR (Anticoag Therapy) (0.92-1.08) INR D-Dimer (0.19-0.49) ug/mL Anion Gap (6.8-13.8) mmol/L Est GFR (Non-Af Amer) (60-130) mL/min Random Glucose (70-110) mg/dL B-Natriuretic Peptide (5-325) pg/mL Procalcitonin (0.05-0.50) ng/mL Urine Protein (NEGATIVE) mg/dL Prot Sulfosalicylic Acd (0) mg/dL Ur Epithelial Cells (0-5) /hpf Urine Mucus (NONE) Crossmatch See Detail Laboratory Results WBC 5.1 K/mm3 (4.0-10.5) 01/17/20 10:15 RBC 3.57 M/mm3 (4.2-5.4) L 01/17/20 10:15 Hgb 7.7 gm/dL (12.5-16.0) L* 01/17/20 10:15 Hct 28.1 % (37.0-47.0) L 01/17/20 10:15 MCV 78.7 fl (78-100) 01/17/20 10:15 MCH 21.6 pg (27-31) L 01/17/20 10:15 MCHC 27.4 g/dl (32-36) L 01/17/20 10:15 RDW 20.3 % (11.5-14.0) H 01/17/20 10:15 Plt Count 230 K/mm3 (150-450) 01/17/20 10:15 MPV 9.7 fl (8-12.5) 01/17/20 10:15 Immature Gran % (Auto) 0.60 % (0.001-0.429) H 01/17/20 10:15 Immature Gran # (Auto) 0.03 K/mm3 (0.000-0.0310) 01/17/20 10:15 Neutrophils % 76.2 % (42-75.0) H 01/17/20 10:15 Lymphocytes % 11.4 % (20-51) L 01/17/20 10:15 Monocytes % 6.5 % (0.0-9) 01/17/20 10:15 Eosinophils % 4.3 % (0.0-3.0) H 01/17/20 10:15 Basophils % 1.0 % (0.0-1.0) 01/17/20 10:15 Nucleated RBC % 0.0 k/mm3 (0-1) 01/17/20 10:15 Neutrophils # 3.9 K/mm3 (1.3-6.0) 01/17/20 10:15 Lymphocytes # 0.58 k/mm3 (1.5-3.5) L 01/17/20 10:15 Monocytes # 0.3 k/mm3 (0.0-1.0) 01/17/20 10:15 Eosinophils # 0.2 k/mm3 (0.0-0.7) 01/17/20 10:15 Absolute Basophils 0.1 k/mm3 (0.0-0.1) 01/17/20 10:15 PT 11.3 Seconds (9.1-10.7) H 01/17/20 10:15 INR (Anticoag Therapy) 1.15 INR (0.92-1.08) H 01/17/20 10:15 PTT ([place]) 26.1 Seconds (24-32) 01/17/20 10:15 D-Dimer 1.11 ug/mL (0.19-0.49) H 01/17/20 10:15 Sodium 139 mmol/L (132-142) 01/17/20 10:15 Plasma Sodium 140 mmol/L (130-142) 01/17/20 10:15 Potassium 4.0 mmol/L (3.4-4.6) D 01/17/20 10:15 Chloride 101 mmol/L (97-106) 01/17/20 10:15 Carbon Dioxide 26.2 mmol/L (24-32.6) 01/17/20 10:15 Anion Gap 15.8 mmol/L (6.8-13.8) H 01/17/20 10:15 BUN 18 mg/dL (3-23) 01/17/20 10:15 Creatinine 1.37 mg/dL (0.4-1.4) 01/17/20 10:15 Est GFR (Non-Af Amer) 41 mL/min (60-130) L 01/17/20 10:15 BUN/Creatinine Ratio 13.1 (9.0-21.6) 01/17/20 10:15 Random Glucose 176 mg/dL (70-110) H 01/17/20 10:15 Lactic Acid, Venous 2.0 mmol/L (0.4-2.0) 01/17/20 10:15 Calcium 8.9 mg/dL (7.9-10.9) 01/17/20 10:15 Calcium Adj for Albumin 8.9 mg/dL (8.4-10.2) 01/17/20 10:15 Total Bilirubin 0.7 mg/dL (0.0-1.1) 01/17/20 10:15 AST 36 U/L (0-48) 01/17/20 10:15 ALT 38 U/L (19-67) 01/17/20 10:15 Alkaline Phosphatase 112 U/L (50-170) 01/17/20 10:15 Troponin I 0.081 ng/mL (0.00-0.10) 01/17/20 10:15 B-Natriuretic Peptide 3740 pg/mL (5-325) H 01/17/20 10:15 Total Protein 6.5 gm/dL (6.2-8.2) 01/17/20 10:15 Albumin 3.6 gm/dl (3.4-5.0) 01/17/20 10:15 Procalcitonin Less than 0.05 ng/mL (0.05-0.50) L 01/17/20 10:15 Urine Color Yellow 01/17/20 10:15 Urine Appearance Slightly cloudy (CLEAR) 01/17/20 10:15 Urine pH 7.0 pH (5.0-7.0) 01/17/20 10:15 Ur Specific [place] 1.025 SP.GR. (1.005-1.010) 01/17/20 10:15 Urine Protein 100 mg/dL (NEGATIVE) H 01/17/20 10:15 Urine Glucose (UA) Negative mg/dL (NEGATIVE) 01/17/20 10:15 Urine Ketones 5 mg/dL (NEGATIVE) 01/17/20 10:15 Urine Blood Negative /ul (NEGATIVE) 01/17/20 10:15 Urine Nitrate Negative (NEGATIVE) 01/17/20 10:15 Urine Bilirubin Negative mg/dl (NEGATIVE) 01/17/20 10:15 Prot Sulfosalicylic Acd 3+ mg/dL (0) H 01/17/20 10:15 Urine Urobilinogen Normal EU/dl (NORMAL) 01/17/20 10:15 Ur Leukocyte Esterase Negative /ul (NEGATIVE) 01/17/20 10:15 Urine RBC None seen /hpf (0-5) 01/17/20 10:15 Urine WBC 0-5 /hpf (0-5) 01/17/20 10:15 Ur Epithelial Cells 5-10 /hpf (0-5) H 01/17/20 10:15 Urine Bacteria None seen (NONE) 01/17/20 10:15 Urine Mucus Few - 1+ (NONE) H 01/17/20 10:15 Urine Culture Comments Culture to follow 01/17/20 10:15 Stool Occult Blood Negative 01/17/20 12:21 Influenza Type A Ag Negative (NEGATIVE) 01/17/20 10:15 Influenza Type B Ag Negative (NEGATIVE) 01/17/20 10:15 SARS-CoV-2 (PCR) Not detected (NotDetected) 01/17/20 10:15 Blood Type A Positive 01/17/20 12:08 Antibody Screen Negative 01/17/20 12:08 Crossmatch See Detail 01/17/20 12:08 Assessment/Plan - Narrative Narrative: Patient was evaluated medical chart was reviewed and decision to admit for observation on our [facility] floor for treatment of a diagnosis of decompensated CHF and symptomatic anemia was made. The patient has a hemoglobin of 7.7 which is around her baseline and is a mild improvement from her previous. Currently she denies any nausea and has not vomited and there are no signs or symptoms of active bleeding. Therefore we will keep the patient overnight and reevaluate her hemoglobin in the morning. In the meantime she will also be treated with multiple doses of IV Lasix in order to diurese her and decrease preload. She is to take all of her routine medications which include her nitrates, beta-reese, and anticoagulants during the hospitalization. We have placed the patient on a radiation monitor and intend to watch her closely. - Assessment/Plan (1) Symptomatic anemia Problem: Acute (2) Acute on chronic congestive heart failure Problem: Acute Qualifiers: Heart failure type: unspecified Qualified Code(s): I50.9 - Heart failure, unspecified (3) Unstable angina Problem: Chronic (4) Shortness of breath Problem: Resolved (5) Anticoagulant long-term use Problem: Chronic (6) Heart murmur, systolic Problem: Chronic (7) Atrial fibrillation Problem: Chronic Qualifiers: Atrial fibrillation type: longstanding persistent Qualified Code(s): I48.11 - Longstanding persistent atrial fibrillation (8) CKD (chronic kidney disease) stage 3, GFR 30-59 ml/min Problem: Acute (9) Diabetes mellitus Problem: Acute Qualifiers: Diabetes mellitus type: type 2
[2020-01-17] MEDS ORDERED: LIDOCAINE HCL 10 APPL CARTRIDGE MM PRN (20:52)
[2020-01-17] MEDS ORDERED: MELATONIN 3,000 MCG TABLET PO SCH (21:00)
[2020-01-17] MEDS ORDERED: SENNOSIDES/DOCUSATE SODIUM 1 TAB TABLET PO SCH (21:00)
[2020-01-17] MEDS ORDERED: ROSUVASTATIN CALCIUM 20 MG TABLET PO SCH (21:00)
[2020-01-17] MEDS: glipiZIDE 5 MG TABLET PO SCH (21:01)
[2020-01-17] MEDS: PANTOPRAZOLE SODIUM 40 MG TABLET.EC PO SCH (21:02)
[2020-01-17] MEDS: SUCRALFATE 1 G TABLET PO SCH (21:02)
[2020-01-17] MEDS: METOPROLOL TARTRATE 25 MG TABLET PO SCH (21:02)
[2020-01-17] MEDS: NABUMETONE 500 MG TABLET PO SCH (21:02)
[2020-01-17] MEDS: INSULIN REGULAR, HUMAN 100 UNITS/ML VIAL SC SCH (21:06)
[2020-01-18] MEDS: FUROSEMIDE 10 MG/ML VIAL IV SCH (06:34)
[2020-01-18] MEDS: PANTOPRAZOLE SODIUM 40 MG TABLET.EC PO SCH (06:34)
[2020-01-18] MEDS: glipiZIDE 5 MG TABLET PO SCH (06:34)
[2020-01-18] MEDS: SUCRALFATE 1 G TABLET PO SCH ×2 (06:34→10:03)
[2020-01-18 06:51] LABS: Hematocrit 28.6 % (37.0-47.0); Mean Cell Volume 78.4 fl (78-100); Mean Corpuscular Hemoglobin 21.4 pg (27-31); Mean Corpuscular Hgb Conc 27.3 g/dl (32-36); Neutrophil # 3.6 K/mm3 (1.3-6.0); Neutrophil % 69.4 % (42-75.0); Platelet Count 230 K/mm3 (150-450); Red Blood Count 3.65 M/mm3 (4.2-5.4); Red Cell Distribution Width 20.2 % (11.5-14.0); White Blood Count 5.1 K/mm3 (4.0-10.5)
[2020-01-18] MEDS ORDERED: LEVOTHYROXINE SODIUM 75 MCG TABLET PO SCH (07:00)
[2020-01-18 07:08] LABS: Hemoglobin 7.8 gm/dL (12.5-16.0)
[2020-01-18 07:12] LABS: Albumin * 3.6 gm/dl (3.4-5.0); Anion Gap 13.9 mmol/L (6.8-13.8); BUN/Creatinine Ratio 13.4 (9.0-21.6); Bilirubin, Total 0.9 mg/dL (0.0-1.1); Ca. Corrected For Albumin 8.7 mg/dL (8.4-10.2); Calcium * 8.7 mg/dL (7.9-10.9); Carbon Dioxide 28.4 mmol/L (24-32.6); Potassium 3.3 mmol/L (3.4-4.6); Total Protein 6.7 gm/dL (6.2-8.2)
[2020-01-18] MEDS: INSULIN REGULAR, HUMAN 100 UNITS/ML VIAL SC SCH ×2 (07:50→12:11)
[2020-01-18] MEDS: NABUMETONE 500 MG TABLET PO SCH (08:53)
[2020-01-18] MEDS: METOPROLOL TARTRATE 25 MG TABLET PO SCH (08:54)
[2020-01-18] MEDS: amLODIPine BESYLATE 5 MG TABLET PO SCH (08:54)
[2020-01-18] MEDS ORDERED: ISOSORBIDE MONONITRATE 30 MG TAB.SR.24H PO SCH (09:00)
[2020-01-18] MEDS ORDERED: MULTIVITAMINS 1 CAP CAPSULE PO SCH (09:00)
[2020-01-18] MEDS ORDERED: POLYETHYLENE GLYCOL 3350 119 GM BTL PO SCH (09:00)
[2020-01-18] MEDS ORDERED: POLYETHYLENE GLYCOL 3350 17 GM PACKET PO SCH (09:00)
[2020-01-18] MEDS ORDERED: POTASSIUM CHLORIDE 20 MEQ TABLET.SA PO ONE (09:37)
--- NOTE | 2020-01-18 10:03 | DS ---
(1) Symptomatic anemia Problem: Acute (2) Acute on chronic congestive heart failure Problem: Acute Qualifiers: Heart failure type: unspecified Qualified Code(s): I50.9 - Heart failure, unspecified (3) Unstable angina Problem: Chronic (4) Shortness of breath Problem: Resolved (5) Anticoagulant long-term use Problem: Chronic (6) Heart murmur, systolic Problem: Chronic (7) Atrial fibrillation Problem: Chronic Qualifiers: Atrial fibrillation type: longstanding persistent Qualified Code(s): I48.11 - Longstanding persistent atrial fibrillation (8) CKD (chronic kidney disease) stage 3, GFR 30-59 ml/min Problem: Chronic (9) Diabetes mellitus Problem: Chronic Qualifiers: Diabetes mellitus type: type 2 Date of Discharge:: 01/18/20 Hospital Course: 69-year-old female admitted for decompensated CHF, hypoxia, and symptomatic anemia, was evaluated at bedside this morning was found to be afebrile and in no acute distress. Patient has been treated with multiple doses of IV Lasix and strict fluid restriction, and she has responded favorably. We were able to successfully remove 2 pounds of fluid off of her which has alleviated her breathing. However she continues to report dyspnea on exertion, like going to the bathroom leaves her winded. It was explained to Mrs. Rodriguez that it could be that her CHF is progressing and she requires higher doses of diuretics to maintain control of her condition. She agreed with this so we will discharge her with a higher dose of Lasix. However, her potassium was mildly decreased this morning so oral potassium tablet was ordered and her GFR has gone down a few points most likely due to the diuresis. 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 Wean orders for oxygen was placed, as well as assessment for a need for at home oxygen. We will discharge patient with orders to repeat a CMP in 3 days to reevaluate electrolyte levels particularly her potassium and her renal function. Procedures Performed: none Results and Findings: Pending Mircobiology Results 01/17/20 11:02 Urine,Catheterized Urine Culture - Preliminary No Growth Lab Pending Results 01/17/20 10:15: WBC 5.1, RBC 3.57 L, Hgb 7.7 L*, Hct 28.1 L, MCV 78.7, MCH 21.6 L, MCHC 27.4 L, RDW 20.3 H, Plt Count 230, MPV 9.7, Immature Gran % (Auto) 0.60 H, Immature Gran # (Auto) 0.03, Neutrophils % 76.2 H, Lymphocytes % 11.4 L, Monocytes % 6.5, Eosinophils % 4.3 H, Basophils % 1.0, Nucleated RBC % 0.0, Neutrophils # 3.9, Lymphocytes # 0.58 L, Monocytes # 0.3, Eosinophils # 0.2, Absolute Basophils 0.1 01/17/20 10:15: PT 11.3 H, INR (Anticoag Therapy) 1.15 H, PTT ([place]) 26.1 01/17/20 10:15: Sodium 139, Plasma Sodium 140, Potassium 4.0 D, Chloride 101, Carbon Dioxide 26.2, Anion Gap 15.8 H, BUN 18, Creatinine 1.37, Est GFR (Non-Af Amer) 41 L, BUN/Creatinine Ratio 13.1, Random Glucose 176 H, Calcium 8.9, Calcium Adj for Albumin 8.9, Total Bilirubin 0.7, AST 36, ALT 38, Alkaline Phosphatase 112, Troponin I 0.081, B-Natriuretic Peptide 3740 H, Total Protein 6.5, Albumin 3.6 01/17/20 10:15: Procalcitonin Less than 0.05 L 01/17/20 10:15: Lactic Acid, Venous 2.0 01/17/20 10:15: D-Dimer 1.11 H 01/17/20 10:15: Urine Color Yellow, Urine Appearance Slightly cloudy, Urine pH 7.0, Ur Specific [place] 1.025, Urine Protein 100 H, Urine Glucose (UA) Negative, Urine Ketones 5, Urine Blood Negative, Urine Nitrate Negative, Urine Bilirubin Negative, Prot Sulfosalicylic Acd 3+ H, Urine Urobilinogen Normal, Ur Leukocyte Esterase Negative, Urine RBC None seen, Urine WBC 0-5, Ur Epithelial Cells 5-10 H, Urine Bacteria None seen, Urine Mucus Few - 1+ H, Urine Culture Comments Culture to follow 01/17/20 10:15: Influenza Type A Ag Negative, Influenza Type B Ag Negative 01/17/20 10:15: SARS-CoV-2 (PCR) Not detected 01/17/20 12:08: Blood Type A Positive, Antibody Screen Negative, Crossmatch See Detail 01/17/20 12:21: Stool Occult Blood Negative 01/18/20 06:30: WBC 5.1, RBC 3.65 L, Hgb 7.8 L*, Hct 28.6 L, MCV 78.4, MCH 21.4 L, MCHC 27.3 L, RDW 20.2 H, Plt Count 230, MPV 9.0, Immature Gran % (Auto) 0.40, Immature Gran # (Auto) 0.02, Neutrophils % 69.4, Lymphocytes % 17.1 L, Monocytes % 6.8, Eosinophils % 5.1 H, Basophils % 1.2 H, Nucleated RBC % 0.0, Neutrophils # 3.6, Lymphocytes # 0.88 L, Monocytes # 0.4, Eosinophils # 0.3, Absolute Basophils 0.1 01/18/20 06:30: Sodium 139, Plasma Sodium 140, Potassium 3.3 L, Chloride 100, Carbon Dioxide 28.4, Anion Gap 13.9 H, BUN 19, Creatinine 1.42 H, Est GFR (Non- Af Amer) 39 L, BUN/Creatinine Ratio 13.4, Random Glucose 163 H, Calcium 8.7, Calcium Adj for Albumin 8.7, Total Bilirubin 0.9, AST 21, ALT 33, Alkaline Phosphatase 122, Total Protein 6.7, Albumin 3.6 Discharge Location: Home Disposition: Home self-care Condition: Stable Face to Face Encounter completed per [facility] Guidelines: No Discharge Activity: Activity as tolerated Discharge Diet: Consistent carbs, Low salt Referrals: Man Cruz DO [Primary Care Provider] - Jada Matthews MD [Staff Physician] - Prescriptions (Any new or edited meds): Furosemide [Lasix] 20 mg PO BID #60 tab Transmission Status: Pending to [facility] Complete Home Medications List: Complete Home Medication List: Acetaminophen [Tylenol] 1,000 mg PO Q6H PRN tab 01/04/19 Melatonin 10 mg PO HS 01/04/19 Multivitamin [One Daily Multivitamin] 1 ea PO DAILY 01/04/19 amLODIPine BESYLATE [Norvasc] 5 mg PO DAILY #30 tab 05/30/19 Isosorbide Mononitrate [Imdur] 30 mg PO DAILY 08/03/19 Dexlansoprazole [Dexilant] 30 mg PO DAILY #30 cap 11/03/19 lidocaine HCl 2 % mucosal jelly 3 ml MUCOUS MEMBRANE 4-6XD PRN #30 ml 11/10/19 Dicyclomine HCl [Bentyl] 10 mg PO BID PRN #5 cap 11/30/19 pantoprazole 20 mg tablet,delayed release 20 mg PO BID #60 tab 12/02/19 sucralfate 1 gram tablet 1 g PO ACHS #60 tab 12/02/19 magnesium citrate 150 ml PO ONCE #296 ml 12/07/19 sennosides 8.6 mg-docusate sodium 50 mg tablet 1 tab-cap PO HS #30 tab 12/07/19 Atorvastatin Calcium [Lipitor] 80 mg PO HS 12/27/19 Levothyroxine Sodium [Synthroid] 75 mcg PO DAILY 12/27/19 Metoprolol Tartrate [Lopressor] 25 mg PO BID 12/27/19 Polyethylene Glycol 3350 [Miralax] 17 gm PO DAILY #1 bottle 12/27/19 glipiZIDE [Glipizide] 5 mg PO BID 12/27/19 Ondansetron [Zofran Odt] 4 mg PO Q6H PRN #20 tab 01/03/20 power mobility device and 2 batteries 1 b .ROUTE .MEDSUPPLY 01/03/20 Nabumetone 500 mg PO BID #10 tab 01/06/20 Cyclobenzaprine HCl [Flexeril] 10 mg PO TID PRN #10 tab 01/10/20 nitroglycerin 0.4 mg sublingual tablet See Rx Instructions .ROUTE .COMPLEX #25 unknown measurement unit code: tablet 01/10/20 Furosemide [Lasix] 20 mg PO BID #60 tab 01/18/20 Forms: Patient Portal Registration
[2020-01-18 16:19] VITALS: BP 145/96
== END 2020-01-18 15:09 | disposition home or self-care (01) ==
LOC: ER 09:50 → MS 14:11 → INTOOBSV 14:11 → MS 14:30
PROVIDERS: ADMIT Family Medicine; ATTEND Family Medicine
DX: E11.22 Type 2 diabetes mellitus with diabetic chronic kidney disease; N18.30 Chronic kidney disease, stage 3 unspecified; I50.9 Heart failure, unspecified; D64.9 Anemia, unspecified; Z79.84 Long term (current) use of oral hypoglycemic drugs; R09.02 Hypoxemia; R07.9 Chest pain, unspecified; Z79.01 Long term (current) use of anticoagulants; R06.00 Dyspnea, unspecified; I48.11 Longstanding persistent atrial fibrillation